=== PATIENT | male | born 1945 | race Caucasian/White ===

== ENCOUNTER 2020-03-28 06:16 | Outpatient (REF) | payer BC, SELFPAY ==
[2020-03-28 11:26] LABS: MANUAL DIFF FLAG NO
[2020-03-28 11:45] LABS: Basophils Absolute Auto 0.1 X10*3/uL (0.0-0.2); Basophils Percent Auto 0.8 % (0-2); Eosinophils Absolute Auto 0.1 X10*3/uL (0.0-0.4); Eosinophils Percent Auto 1.4 % (0-4); Hematocrit 45.2 % (42-52); Imm Gran Abs Auto 0.05 X10*3/uL (0.00-0.03); Imm Gran Pct Auto 0.5 % (0.0-0.4); Lymphocytes Absolute Auto 2.9 X10*3/uL (1.2-4.9); Lymphocytes Percent Auto 30.6 % (20-40); Mean Corpuscular HGB Conc 33.2 g/dl (31.0-36.0); Mean Corpuscular Hemoglobin 30.1 pg (27.0-33.0); Mean Corpuscular Volume 90.8 fL (80-98); Mean Platelet Volume 11.3 fL (9.4-12.4); Monocytes Absolute Auto 0.8 X10*3/uL (0.1-1.2); Monocytes Percent Auto 8.1 % (2-11); Neutrophils Absolute Auto 5.5 X10*3/uL (2.0-8.3); Neutrophils Percent Auto 58.6 % (45-73); Platelet Count 240 X10*3/uL (160-400); Red Blood Count 4.98 X10*6/uL (4.60-5.80); White Blood Count 9.4 X10*3/uL (4.8-10.8)
[2020-03-28 11:52] LABS: Glucose Urine UA NEG (NEG); Leukocyte Esterase Urine NEG (NEG); Nitrite Urine NEG (NEG); PH 5.5 (5.0-8.0); Specific Gravity - Urine >= 1.030 (1.005-1.025); Urine Blood NEG (NEG); Urine Ketones NEG (NEG); Urine Protein NEG (NEG-TRACE)
[2020-03-28 12:02] LABS: Appearance Urine CLOUDY; Color Urine YELLOW; UACC Culture Trigger NO
[2020-03-28 12:03] LABS: Alanine Aminotransferase 34 U/L (0-40); Albumin Level 4.6 g/dL (3.5-5.0); Alkaline Phosphatase 83 U/L (39-117); Anion Gap 16 (12-20); Aspartate Amino Transferase 27 U/L (5-37); Bilirubin Total 0.8 mg/dL (0.0-1.0); Blood Urea Nitrogen 15 mg/dL (9-16); Carbon Dioxide 20 mmol/L (22-29); Chloride 107 mmol/L (96-108); Cholesterol 128 mg/dL; Estimated Glomerular Filt Rate > 60; Glucose Fasting 110 mg/dL (60-99); HDL Cholesterol 38 mg/dL; LDL Cholesterol Calculated 60 mg/dl; Potassium 4.2 mmol/l (3.3-5.1); Sodium 139 mmol/L (135-145); Total Protein 7.2 g/dL (6.5-8.0); Triglycerides 151 mg/dL
[2020-03-28 12:10] LABS: TSH reflex Free T4 2.85 mIU/mL (0.32-4.0)
[2020-03-28 12:17] LABS: Amorphous Sediment Urine 3+ /LPF; Mucus Urine 3+ /LPF; RBC Urine 0 /HPF (0); WBC Urine 0 /HPF (0-4)
[2020-03-28 12:41] LABS: Estimated Average Glucose 120 mg/dL; Hemoglobin A1C 157.6414 umol/L; Hemoglobin A1c % 5.8 %
== END 2020-03-28 06:17 | disposition home or self-care (01) ==
LOC: HO.HMGCLDS 06:16
PROVIDERS: PCP Internal Medicine; Visit Provider Internal Medicine
DX: E78.00 Pure hypercholesterolemia, unspecified (principal); R73.01 Impaired fasting glucose; I10 Essential (primary) hypertension; K21.9 Gastro-esophageal reflux disease without esophagitis; N40.0 Benign prostatic hyperplasia without lower urinary tract symptoms; E66.3 Overweight
CPT/HCPCS: 36415; 80053; 80061; 81001; 81003; 83036; 84443; 85025

== ENCOUNTER 2020-07-23 | Outpatient (REF) | payer MEDICARE, SELFPAY | END 2020-07-23 00:01 | disposition home or self-care (01) | LOC: HO.VC | PROVIDERS: Visit Provider Internal Medicine | DX: Z23 Encounter for immunization (principal) | CPT/HCPCS: 0011A ==

== ENCOUNTER 2020-08-19 | Outpatient (REF) | payer BC, SELFPAY | END 2020-08-19 00:01 | disposition home or self-care (01) | LOC: HO.VC | PROVIDERS: Visit Provider Internal Medicine | DX: Z23 Encounter for immunization (principal) | CPT/HCPCS: 0012A ==

== ENCOUNTER 2020-09-01 10:20 | Outpatient (REF) | payer BC, SELFPAY ==
[2020-09-01 12:00] LABS: Prostate Specific Antigen 0.11 ng/mL (<0.05-4.0)
== END 2020-09-01 10:21 | disposition home or self-care (01) ==
LOC: HO.HMGCLDS 10:20
PROVIDERS: PCP Internal Medicine; Visit Provider Urology
DX: Z12.5 Encounter for screening for malignant neoplasm of prostate (principal); C61 Malignant neoplasm of prostate
CPT/HCPCS: 36415; 84153

== ENCOUNTER 2020-09-22 06:56 | Outpatient (REF) | payer BC, SELFPAY ==
[2020-09-22 11:34] LABS: MANUAL DIFF FLAG NO
[2020-09-22 11:49] LABS: Basophils Absolute Auto 0.1 X10*3/uL (0.0-0.2); Basophils Percent Auto 0.7 % (0-2); Eosinophils Absolute Auto 0.2 X10*3/uL (0.0-0.4); Eosinophils Percent Auto 1.4 % (0-4); Hematocrit 43.7 % (42-52); Hemoglobin 13.9 g/dl (14.0-18.0); Imm Gran Abs Auto 0.06 X10*3/uL (0.00-0.03); Imm Gran Pct Auto 0.5 % (0.0-0.4); Lymphocytes Absolute Auto 3.1 X10*3/uL (1.2-4.9); Lymphocytes Percent Auto 27.2 % (20-40); Mean Corpuscular HGB Conc 31.8 g/dl (31.0-36.0); Mean Corpuscular Hemoglobin 29.4 pg (27.0-33.0); Mean Corpuscular Volume 92.4 fL (80-98); Mean Platelet Volume 11.2 fL (9.4-12.4); Monocytes Percent Auto 9.1 % (2-11); Neutrophils Percent Auto 61.1 % (45-73); Platelet Count 221 X10*3/uL (160-400); Red Blood Count 4.73 X10*6/uL (4.60-5.80); Red Cell Distribution Width 13.3 % (11.0-16.0); White Blood Count 11.4 X10*3/uL (4.8-10.8)
[2020-09-22 11:50] LABS: Glucose Urine UA NEG (NEG); Leukocyte Esterase Urine NEG (NEG); Nitrite Urine NEG (NEG); PH 5.5 (5.0-8.0); Specific Gravity - Urine >= 1.030 (1.005-1.025); Urine Blood NEG (NEG); Urine Ketones NEG (NEG); Urine Protein NEG (NEG-TRACE)
[2020-09-22 11:57] LABS: Appearance Urine CLOUDY; Color Urine AMBER
[2020-09-22 12:04] LABS: Alanine Aminotransferase 38 U/L (0-40); Albumin Level 4.3 g/dL (3.5-5.0); Alkaline Phosphatase 72 U/L (39-117); Anion Gap 15 (12-20); Aspartate Amino Transferase 40 U/L (5-37); Bilirubin Total 0.8 mg/dL (0.0-1.0); Blood Urea Nitrogen 22 mg/dL (9-16); Calcium 8.9 mg/dL (8.4-10.2); Carbon Dioxide 19 mmol/L (22-29); Chloride 110 mmol/L (96-108); Cholesterol 133 mg/dL; Estimated Glomerular Filt Rate > 60; Glucose Fasting 102 mg/dL (60-99); HDL Cholesterol 40 mg/dL; LDL Cholesterol Calculated 62 mg/dl; Potassium 4.1 mmol/L (3.3-5.1); Sodium 140 mmol/L (135-145); Total Protein 6.7 g/dL (6.5-8.0); Triglycerides 159 mg/dL
[2020-09-22 12:13] LABS: TSH reflex Free T4 1.53 uIU/mL (0.32-4.0); Vitamin D 25-OH Total 31.6 ng/mL (>30)
== END 2020-09-22 06:57 | disposition home or self-care (01) ==
LOC: HO.HMGCLDS 06:56
PROVIDERS: PCP Internal Medicine; Visit Provider Internal Medicine
DX: E66.3 Overweight (principal); E78.00 Pure hypercholesterolemia, unspecified; I10 Essential (primary) hypertension; N40.1 Benign prostatic hyperplasia with lower urinary tract symptoms; R35.0 Frequency of micturition; K21.9 Gastro-esophageal reflux disease without esophagitis; R73.01 Impaired fasting glucose; E55.9 Vitamin D deficiency, unspecified
CPT/HCPCS: 36415; 80053; 80061; 81003; 82306; 84443; 85025

== ENCOUNTER → 2020-09-23 09:42 | Outpatient (BNVA) | payer BC, SELFPAY | PROVIDERS: PCP Internal Medicine; Visit Provider Urology ==

== ENCOUNTER 2021-03-23 06:19 | Outpatient (REF) | payer BC, SELFPAY ==
[2021-03-23 11:19] LABS: MANUAL DIFF FLAG NO
[2021-03-23 11:23] LABS: Appearance Urine CLEAR; Color Urine YELLOW; Glucose Urine UA NEG (NEG); Leukocyte Esterase Urine NEG (NEG); Nitrite Urine NEG (NEG); PH 6.5 (5.0-8.0); Urine Blood NEG (NEG); Urine Ketones NEG (NEG); Urine Protein NEG (NEG-TRACE)
[2021-03-23 11:24] LABS: Basophils Absolute Auto 0.1 X10*3/uL (0.0-0.2); Basophils Percent Auto 0.9 % (0-2); Eosinophils Absolute Auto 0.1 X10*3/uL (0.0-0.4); Eosinophils Percent Auto 0.9 % (0-4); Hematocrit 44.5 % (42-52); Hemoglobin 14.6 g/dl (14.0-18.0); Imm Gran Abs Auto 0.05 X10*3/uL (0.00-0.03); Imm Gran Pct Auto 0.5 % (0.0-0.4); Lymphocytes Absolute Auto 3.2 X10*3/uL (1.2-4.9); Lymphocytes Percent Auto 32.6 % (20-40); Mean Corpuscular HGB Conc 32.8 g/dl (31.0-36.0); Mean Corpuscular Hemoglobin 29.8 pg (27.0-33.0); Mean Corpuscular Volume 90.8 fL (80-98); Mean Platelet Volume 10.7 fL (9.4-12.4); Monocytes Absolute Auto 0.9 X10*3/uL (0.1-1.2); Monocytes Percent Auto 9.3 % (2-11); Neutrophils Absolute Auto 5.5 X10*3/uL (2.0-8.3); Neutrophils Percent Auto 55.8 % (45-73); Platelet Count 228 X10*3/uL (160-400); Red Cell Distribution Width 13.1 % (11.0-16.0); White Blood Count 9.8 X10*3/uL (4.8-10.8)
[2021-03-23 11:45] LABS: Alanine Aminotransferase 28 U/L (0-40); Albumin Level 4.5 g/dL (3.5-5.0); Alkaline Phosphatase 75 U/L (39-117); Anion Gap 14 (12-20); Aspartate Amino Transferase 23 U/L (5-37); Bilirubin Total 0.9 mg/dL (0.0-1.0); Blood Urea Nitrogen 10 mg/dL (9-16); Calcium 9.1 mg/dL (8.4-10.2); Carbon Dioxide 21 mmol/L (22-29); Chloride 109 mmol/L (96-108); Cholesterol 128 mg/dL; Estimated Glomerular Filt Rate > 60; Glucose Fasting 104 mg/dL (60-99); HDL Cholesterol 40 mg/dL; LDL Cholesterol Calculated 57 mg/dl; Potassium 4.2 mmol/L (3.3-5.1); Sodium 140 mmol/L (135-145); Total Protein 6.8 g/dL (6.5-8.0); Triglycerides 159 mg/dL
[2021-03-23 11:47] LABS: Estimated Average Glucose 117 mg/dL; Hemoglobin A1c % 5.7 %
[2021-03-23 12:08] LABS: TSH reflex Free T4 2.35 uIU/mL (0.32-4.0); Vitamin D 25-OH Total 39.3 ng/mL (>30)
== END 2021-03-23 06:20 | disposition home or self-care (01) ==
LOC: HO.HMGCLDS 06:19
PROVIDERS: PCP Internal Medicine; Visit Provider Internal Medicine
DX: R73.01 Impaired fasting glucose (principal); I10 Essential (primary) hypertension; N40.1 Benign prostatic hyperplasia with lower urinary tract symptoms; R35.0 Frequency of micturition; E55.9 Vitamin D deficiency, unspecified; E78.00 Pure hypercholesterolemia, unspecified; E66.3 Overweight
CPT/HCPCS: 36415; 80053; 80061; 81003; 82306; 83036; 84443; 85025

== ENCOUNTER 2021-09-16 07:26 | Outpatient (REF) | payer BC, SELFPAY ==
[2021-09-16 12:30] LABS: Prostate Specific Antigen 0.14 ng/mL (<0.05-4.0)
== END 2021-09-16 07:27 | disposition home or self-care (01) ==
LOC: HO.HMGCLDS 07:26
PROVIDERS: PCP Internal Medicine; Visit Provider Urology
DX: Z12.5 Encounter for screening for malignant neoplasm of prostate (principal); C61 Malignant neoplasm of prostate; N40.1 Benign prostatic hyperplasia with lower urinary tract symptoms; N13.8 Other obstructive and reflux uropathy
CPT/HCPCS: 36415; 84153

== ENCOUNTER 2021-09-21 06:28 | Outpatient (REF) | payer BC, SELFPAY ==
[2021-09-21 12:04] LABS: MANUAL DIFF FLAG NO
[2021-09-21 12:13] LABS: Appearance Urine CLEAR; Color Urine YELLOW; Glucose Urine UA NEG (NEG); Leukocyte Esterase Urine NEG (NEG); Nitrite Urine NEG (NEG); PH 5.5 (5.0-8.0); Specific Gravity - Urine 1.025 (1.005-1.025); Urine Blood NEG (NEG); Urine Ketones NEG (NEG); Urine Protein NEG (NEG-TRACE)
[2021-09-21 12:14] LABS: Basophils Absolute Auto 0.1 X10*3/uL (0.0-0.2); Basophils Percent Auto 0.7 % (0-2); Eosinophils Absolute Auto 0.2 X10*3/uL (0.0-0.4); Eosinophils Percent Auto 1.9 % (0-4); Hematocrit 46.9 % (42.0-52.0); Hemoglobin 14.9 g/dl (14.0-18.0); Imm Gran Abs Auto 0.06 X10*3/uL (0.00-0.03); Imm Gran Pct Auto 0.6 % (0.0-0.4); Lymphocytes Absolute Auto 3.8 X10*3/uL (1.2-4.9); Lymphocytes Percent Auto 35.7 % (20-40); Mean Corpuscular HGB Conc 31.8 g/dl (31.0-36.0); Mean Corpuscular Hemoglobin 29.3 pg (27.0-33.0); Mean Corpuscular Volume 92.3 fL (80.0-98.0); Mean Platelet Volume 11.2 fL (9.4-12.4); Monocytes Absolute Auto 0.9 X10*3/uL (0.1-1.2); Monocytes Percent Auto 8.9 % (2-11); Neutrophils Absolute Auto 5.5 x10*3/uL (2.0-8.3); Neutrophils Percent Auto 52.2 % (45-73); Platelet Count 235 X10*3/uL (160-400); Red Blood Count 5.08 X10*6/uL (4.60-5.80); Red Cell Distribution Width 13.3 % (11.0-16.0); White Blood Count 10.5 X10*3/uL (4.8-10.8)
[2021-09-21 12:34] LABS: Alanine Aminotransferase 32 U/L (0-40); Albumin Level 4.5 g/dL (3.5-5.0); Alkaline Phosphatase 77 U/L (39-117); Anion Gap 11 (12-20); Aspartate Amino Transferase 19 U/L (5-37); Bilirubin Total 0.8 mg/dL (0.0-1.0); Blood Urea Nitrogen 18 mg/dL (9-16); Calcium 9.8 mg/dL (8.4-10.2); Carbon Dioxide 25 mmol/L (22-29); Chloride 108 mmol/L (96-108); Cholesterol 149 mg/dL; Estimated Glomerular Filt Rate > 60; Glucose Fasting 114 mg/dL (60-99); HDL Cholesterol 40 mg/dL; LDL Cholesterol Calculated 64 mg/dl; Potassium 4.3 mmol/L (3.3-5.1); Sodium 140 mmol/L (135-145); Total Protein 7.1 g/dL (6.5-8.0); Triglycerides 225 mg/dL
[2021-09-21 12:40] LABS: Vitamin D 25-OH Total 37.2 ng/mL (>30)
[2021-09-21 12:59] LABS: Estimated Average Glucose 117 mg/dL; Hemoglobin A1c % 5.7 %
== END 2021-09-21 06:29 | disposition home or self-care (01) ==
LOC: HO.HMGCLDS 06:28
PROVIDERS: Visit Provider Internal Medicine
DX: I10 Essential (primary) hypertension (principal); E78.00 Pure hypercholesterolemia, unspecified; R73.01 Impaired fasting glucose; E55.9 Vitamin D deficiency, unspecified
CPT/HCPCS: 36415; 80053; 80061; 81003; 82306; 83036; 84443; 85025

== ENCOUNTER → 2021-09-24 09:10 | Outpatient (BNVA) | payer BC, SELFPAY | PROVIDERS: PCP Internal Medicine; Visit Provider Urology | DX: C61 Malignant neoplasm of prostate (principal) | CPT/HCPCS: 51798 ==

== ENCOUNTER 2021-11-13 14:06 | Emergency (ER) | payer BC, SELFPAY ==
--- NOTE | ~2021-11-13 | XR_ITS ---
EXAMINATION: XR CHEST CLINICAL INFORMATION: Palpitations COMPARISON: None TECHNIQUE: Frontal view of the chest was obtained. FINDINGS: The lungs are well expanded. Minimal opacity at the left base noted. There is no edema or effusion. No pneumothorax. The cardiomediastinal silhouette is within normal limits. No acute osseous abnormality. XR/XR chest 1V IMPRESSION: Minimal left basilar opacity could be atelectasis or pneumonia.
--- NOTE | ~2021-11-13 | CT_ITS ---
EXAMINATION: CT HEAD WITHOUT CONTRAST CLINICAL INFORMATION: Right arm numbness COMPARISON: Previous head CT December 2010 TECHNIQUE: Contiguous axial imaging was performed from the skull base to vertex without intravenous administration of contrast. This CT examination was performed using dose optimization techniques as appropriate, variously including the following: *Automated exposure control *Adjustment of mA and/or kV according to patient size (this includes techniques or standardized protocols for targeted exams where dose is matched to indication/reason for exam; i.e. extremities or head) *Use of iterative reconstruction technique DLP: 671 mGy-cm FINDINGS: There is no evidence of an extra-axial collection. There is no evidence of intra-axial or extra-axial hemorrhage. The ventricles and extra-axial CSF spaces are prominent suggestive of mild generalized atrophy. Shah-white matter differentiation is normal. No mass, mass effect or infarct is seen. No skull fracture is seen. There are mild degenerative changes of the left temporomandibular joint. There is soft tissue opacification the left mastoid air cells. This is unchanged from previous exam. Visualized paranasal sinuses, mastoid air cells and middle ears are otherwise clear. CT/CT head/brain wo con IMPRESSION: No acute findings.
--- NOTE | 2021-11-13 14:38 | ECG_ITS ---
Test Reason : SVT Blood Pressure : / mmHG Vent. Rate : 095 BPM Atrial Rate : 095 BPM P-R Int : 184 ms QRS Dur : 096 ms QT Int : 350 ms P-R-T Axes : 065 -12 042 degrees QTc Int : 439 ms Normal sinus rhythm Normal ECG When compared with ECG of 17-DEC-2010 18:28, No significant change was found Referred By: Generic ED Physician Electronically Signed By:Abdulkadir Daniels
[2021-11-13 15:15] VITALS: BP 111/96; PULSE 160; RESP 16; O2SAT 97; BMI 26.9
--- NOTE | 2021-11-13 15:19 | PC.NURSE ---
dosier operator made aware of HR and recommendation to have pt moved to main ED
--- NOTE | 2021-11-13 15:27 | ED.ARRPALP ---
HPI - Arrhythmia/Palpitations General Chief Complaint: Arrhythmia/Palpitations Stated Complaint: heart palipations/sinus infection/dizziness Time Seen by Provider: 11/13/21 15:27 Source: patient Mode of arrival: ambulatory Limitations: no limitations History of Present Illness HPI narrative: 76 y/o male with history of HTN, HLD, GERD, prostate cancer who comes into the ED for evaluation from home c/o 1-2 weeks of intermittent palpitations and dizziness. He cannot recall exactly when they started but thinks it may have been after he mowed the lawn. He reports he has intermittent heart racing the last anywhere from seconds to minutes. He cannot recall if it starts during exertion or rest. He denies any chest pain. He reports his breath is short but he is not working to breathe or having difficulty breathing. He thinks he has a sinus infection. He also reports some right arm numbness that is intermittent and occurs with the palpitations. He thinks he may have carpal tunnel syndrome. He denies any weakness, speech difficulties, confusion or lethargy. MD complaint: rapid heart beat Onset (ago): week(s) Duration: intermittent Severity: moderate Context: occurred during rest and occurred during exertion Associated symptoms: shortness of breath Related Data Home Medications Medication Instructions Recorded Confirmed multivitamin (Multiple Vitamins) 1 tab PO DAILY 04/04/20 09/29/21 omega 8-tfd-itt-fish oil 100 1 cap PO .once a day cap 04/04/20 09/29/21 mg-160 mg-1,000 mg capsule (Fish Oil) cholecalciferol (vitamin D3) 25 25 mcg PO DAILY 09/29/21 09/29/21 mcg (1,000 unit) capsule Previous Rx's Medication Instructions Recorded metoprolol succinate 100 mg 100 mg PO DAILY #90 tab 02/16/21 tablet,extended release 24 hr atorvastatin 40 mg tablet 40 mg PO DAILY #90 tab 08/11/21 omeprazole 40 mg capsule,delayed 40 mg PO DAILY 90 Days #90 cap 08/11/21 release lisinopril 10 mg tablet 10 mg PO DAILY #90 tab 09/10/21 tamsulosin 0.4 mg capsule 0.4 mg PO DAILY #90 cap 09/10/21 amoxicillin-potassium clavulanate 1 tab PO BID 7 Days #14 tab 11/13/21 1,000 mg-62.5 mg tablet,ext.rel 12hr (Augmentin XR) Allergies Allergy/AdvReac Type Severity Reaction Status Date / Time No Known Allergies Allergy Verified 11/13/21 15:15 Review of Systems Review of Systems: Constitutional: No Fever, No Chills ENT/Mouth: No sore throat, No Rhinorrhea, No Swallowing Difficulty, +Sinus pressure Cardiovascular: No Chest Pain, + SOB, No Orthopnea, No Edema, +Palpitations Respiratory: No Cough, No Sputum, No Wheezing, No dyspnea Gastrointestinal: No Nausea, No Vomiting, No Diarrhea, No abdominal Pain, No Hematochezia, No Melena Genitourinary: No Dysuria, No Urinary Frequency, No Hematuria Musculoskeletal: No joint pain, No Myalgias Skin: No Skin Lesions, No rash Neuro: No Weakness, + Numbness, + Dizziness, No Headache Psych: + Anxiety/Panic, No Depression Heme/Lymph: No Bruising, No Lymphadenopathy Endocrine: No Polyuria, No Polydipsia PMFSH Past Medical History Medical History Benign essential hypertension Benign prostatic hyperplasia with urinary frequency GERD (gastroesophageal reflux disease) History of prostate cancer Impaired fasting glucose Overweight (BMI 25.0-29.9) Pure hypercholesterolemia Vitamin D deficiency Surgical History No pertinent past surgical history Family History Family History Father Medical history unknown Mother CVD (cardiovascular disease) Social History Social History Housing: House Alcohol intake: never Patient Tobacco Use Status: Former Tobacco user e-Cigarette/Vaping Use: Never Used Second Hand Smoke Exposure: Yes Advance Directives: No Advance Directives Information Provided: No service: Yes Current occupational status: retired Cognitive needs: No Hearing needs: No Vision needs: No Physical Exam Vital Signs: Vital Signs: Last Vital Signs Pulse 87 11/13/21 16:07 Resp 18 11/13/21 16:07 BP 143/85 H 11/13/21 16:07 Pulse Ox 98 11/13/21 16:07 BMI result Body Mass Index 26.9 Appearance: Alert. Oriented X3. No acute distress. Eyes: Pupils equal, round and reactive to light. ENT: Pharynx normal. Neck: Normal inspection. Neck supple. CVS: Tachycardic, regular rhythm, HR 160. Pulses normal. Respiratory: No respiratory distress. Breath sounds normal. Abdomen: Soft and nontender. +BS x4 Skin: Skin warm and dry. Normal skin color. Normal skin turgor. No rashes. Extremities: No lower extremity edema. No calf tenderness Neuro: Oriented X 3. No motor deficit. No sensory deficit. Course Course Course Narrative: 76-year-old male with history of hypertension, hyperlipidemia, remote history of prostate cancer who presents to the ER for evaluation of intermittent palpitations and dizziness for the last 1-2 weeks. He is a poor historian. On arrival to the ER he is in so supraventricular tachycardia with heart rates 160. His blood pressure is 170/110. He is in no distress and has minimal symptoms at this time. Instructed to perform Valsalva maneuver and this broke his SVT. Will check troponin, lab workup, monitor on telemetry closely. Reevaluation(s) Reevaluation #1: Lab workup was unremarkable. He has maintained sinus rhythm. He would like to be treated for sinus infection with reports of left-sided sinus pressure, green nasal discharge and postnasal drip. He has no shortness of breath or chest pain. Chest x-ray shows possible early infiltrate in the left upper lobe. Will treat with Augmentin. Will refer to Cardiology, case discussed with Dr. Oleary who agrees with continuation of metoprolol and f/u in the office. Patient counseled on dx and management. MDM - Arrhythmia/Palpitations Medical Records Attestation: I reviewed the patient's medical records. Lab Data Attestation: I reviewed the patient's lab results. Result diagrams: 11/13/21 15:44 11/13/21 15:44 Labs: Lab Results 11/13/21 11/13/21 11/13/21 Range/Units 15:44 15:44 15:44 WBC 10.8 (4.8-10.8) X10*3/uL RBC 4.93 (4.60-5.80) X10*6/uL Hgb 14.8 (14.0-18.0) g/dl Hct 44.4 (42.0-52.0) % MCV 90.1 (80.0-98.0) fL MCH 30.0 (27.0-33.0) pg MCHC 33.3 (31.0-36.0) g/dl RDW 13.2 (11.0-16.0) % Plt Count 219 (160-400) X10*3/uL MPV 10.6 (9.4-12.4) fL Immature Gran % (Auto) 0.5 H (0.0-0.4) % Neut % (Auto) 68.8 (45-73) % Lymph % (Auto) 21.0 (20-40) % [place] % (Auto) 8.7 (2-11) % Eos % (Auto) 0.5 (0-4) % Baso % (Auto) 0.5 (0-2) % Lymph # (Auto) 2.3 (1.2-4.9) X10*3/uL [place] # (Auto) 0.9 (0.1-1.2) X10*3/uL Eos # (Auto) 0.1 (0.0-0.4) X10*3/uL Baso # (Auto) 0.1 (0.0-0.2) X10*3/uL Abs Immat Gran (auto) 0.05 H (0.00-0.03) X10*3/uL Absolute Neuts (auto) 7.4 (2.0-8.3) x10*3/uL Absolute Nucleated RBC 0.000 (0.0-0.012) X10*3/uL Nucleated RBC % (auto) 0.0 (0.0-0.2) /100WBC PT (9.9-13.0) SEC INR (0.9-1.1) APTT (24.1-38.0) SEC Sodium 140 (135-145) mmol/L Potassium 4.9 (3.3-5.1) mmol/L Chloride 108 (96-108) mmol/L Carbon Dioxide 21 L (22-29) mmol/L Anion Gap 16 (12-20) BUN 12 (9-16) mg/dL Creatinine 1.07 (0.5-1.4) mg/dL Estim Creat Clear Calc 61.5 Estimated GFR > 60 Random Glucose 117 H (60-115) mg/dL Calcium 9.9 (8.4-10.2) mg/dL Magnesium 2.3 (1.6-2.6) mg/dL Total Bilirubin 0.8 (0.0-1.0) mg/dL Direct Bilirubin 0.3 (0.0-0.5) mg/dL AST 27 D (5-37) U/L ALT 28 (0-40) U/L Alkaline Phosphatase 69 (39-117) U/L Troponin I High Sens 6.4 (<3.5-35.0) ng/L B-Natriuretic Peptide 212 H (<100) pg/mL Total Protein 7.2 (6.5-8.0) g/dL Albumin 4.3 (3.5-5.0) g/dL Urine Color Urine Appearance Urine pH (5.0-8.0) Ur Specific [place] (1.005-1.025) Urine Protein (NEG-TRACE) MG/DL Urine Glucose (UA) (NEG) MG/DL Urine Ketones (NEG) MG/DL Urine Blood (NEG) Urine Nitrite (NEG) Ur Leukocyte Esterase (NEG) Urine Opiates Screen (Not Detect) Urine Fentanyl Screen (Not Detect) Ur Barbiturates Screen (Not Detect) Ur Phencyclidine Scrn (Not Detect) Ur Amphetamines Screen (Not Detect) U Benzodiazepines Scrn (Not Detect) Urine Cocaine Screen (Not Detect) U Marijuana (THC) Screen (Not Detect) Ethyl Alcohol mg/dL COVID-19 (VIDAL) (Negative) COVID-19 Clin Com 11/13/21 11/13/21 11/13/21 Range/Units 15:44 16:02 16:02 WBC (4.8-10.8) X10*3/uL RBC (4.60-5.80) X10*6/uL Hgb (14.0-18.0) g/dl Hct (42.0-52.0) % MCV (80.0-98.0) fL MCH (27.0-33.0) pg MCHC (31.0-36.0) g/dl RDW (11.0-16.0) % Plt Count (160-400) X10*3/uL MPV (9.4-12.4) fL Immature Gran % (Auto) (0.0-0.4) % Neut % (Auto) (45-73) % Lymph % (Auto) (20-40) % [place]anan % (Auto) (2-11) % Eos % (Auto) (0-4) % Baso % (Auto) (0-2) % Lymph # (Auto) (1.2-4.9) X10*3/uL [place] # (Auto) (0.1-1.2) X10*3/uL Eos # (Auto) (0.0-0.4) X10*3/uL Baso # (Auto) (0.0-0.2) X10*3/uL Abs Immat Gran (auto) (0.00-0.03) X10*3/uL Absolute Neuts (auto) (2.0-8.3) x10*3/uL Absolute Nucleated RBC (0.0-0.012) X10*3/uL Nucleated RBC % (auto) (0.0-0.2) /100WBC PT 11.3 (9.9-13.0) SEC INR 1.0 (0.9-1.1) APTT 35.6 (24.1-38.0) SEC Sodium (135-145) mmol/L Potassium (3.3-5.1) mmol/L Chloride (96-108) mmol/L Carbon Dioxide (22-29) mmol/L Anion Gap (12-20) BUN (9-16) mg/dL Creatinine (0.5-1.4) mg/dL Estim Creat Clear Calc Estimated GFR Random Glucose (60-115) mg/dL Calcium (8.4-10.2) mg/dL Magnesium (1.6-2.6) mg/dL Total Bilirubin (0.0-1.0) mg/dL Direct Bilirubin (0.0-0.5) mg/dL AST (5-37) U/L ALT (0-40) U/L Alkaline Phosphatase (39-117) U/L Troponin I High Sens (<3.5-35.0) ng/L B-Natriuretic Peptide (<100) pg/mL Total Protein (6.5-8.0) g/dL Albumin (3.5-5.0) g/dL Urine Color Urine Appearance Urine pH (5.0-8.0) Ur Specific [place] (1.005-1.025) Urine Protein (NEG-TRACE) MG/DL Urine Glucose (UA) (NEG) MG/DL Urine Ketones (NEG) MG/DL Urine Blood (NEG) Urine Nitrite (NEG) Ur Leukocyte Esterase (NEG) Urine Opiates Screen (Not Detect) Urine Fentanyl Screen (Not Detect) Ur Barbiturates Screen (Not Detect) Ur Phencyclidine Scrn (Not Detect) Ur Amphetamines Screen (Not Detect) U Benzodiazepines Scrn (Not Detect) Urine Cocaine Screen (Not Detect) U Marijuana (THC) Screen (Not Detect) Ethyl Alcohol < 10 mg/dL COVID-19 (VIDAL) Negative (Negative) COVID-19 Clin Com See Note 11/13/21 11/13/21 Range/Units 16:09 16:09 WBC (4.8-10.8) X10*3/uL RBC (4.60-5.80) X10*6/uL Hgb (14.0-18.0) g/dl Hct (42.0-52.0) % MCV (80.0-98.0) fL MCH (27.0-33.0) pg MCHC (31.0-36.0) g/dl RDW (11.0-16.0) % Plt Count (160-400) X10*3/uL MPV (9.4-12.4) fL Immature Gran % (Auto) (0.0-0.4) % Neut % (Auto) (45-73) % Lymph % (Auto) (20-40) % [place] % (Auto) (2-11) % Eos % (Auto) (0-4) % Baso % (Auto) (0-2) % Lymph # (Auto) (1.2-4.9) X10*3/uL [place] # (Auto) (0.1-1.2) X10*3/uL Eos # (Auto) (0.0-0.4) X10*3/uL Baso # (Auto) (0.0-0.2) X10*3/uL Abs Immat Gran (auto) (0.00-0.03) X10*3/uL Absolute Neuts (auto) (2.0-8.3) x10*3/uL Absolute Nucleated RBC (0.0-0.012) X10*3/uL Nucleated RBC % (auto) (0.0-0.2) /100WBC PT (9.9-13.0) SEC INR (0.9-1.1) APTT (24.1-38.0) SEC Sodium (135-145) mmol/L Potassium (3.3-5.1) mmol/L Chloride (96-108) mmol/L Carbon Dioxide (22-29) mmol/L Anion Gap (12-20) BUN (9-16) mg/dL Creatinine (0.5-1.4) mg/dL Estim Creat Clear Calc Estimated GFR Random Glucose (60-115) mg/dL Calcium (8.4-10.2) mg/dL Magnesium (1.6-2.6) mg/dL Total Bilirubin (0.0-1.0) mg/dL Direct Bilirubin (0.0-0.5) mg/dL AST (5-37) U/L ALT (0-40) U/L Alkaline Phosphatase (39-117) U/L Troponin I High Sens (<3.5-35.0) ng/L B-Natriuretic Peptide (<100) pg/mL Total Protein (6.5-8.0) g/dL Albumin (3.5-5.0) g/dL Urine Color YELLOW Urine Appearance CLEAR Urine pH 5.5 (5.0-8.0) Ur Specific [place] 1.025 (1.005-1.025) Urine Protein NEG (NEG-TRACE) MG/DL Urine Glucose (UA) NEG (NEG) MG/DL Urine Ketones NEG (NEG) MG/DL Urine Blood NEG (NEG) Urine Nitrite NEG (NEG) Ur Leukocyte Esterase NEG (NEG) Urine Opiates Screen Not Detected (Not Detect) Urine Fentanyl Screen Not Detected (Not Detect) Ur Barbiturates Screen Not Detected (Not Detect) Ur Phencyclidine Scrn Not Detected (Not Detect) Ur Amphetamines Screen Not Detected (Not Detect) U Benzodiazepines Scrn Not Detected (Not Detect) Urine Cocaine Screen Not Detected (Not Detect) U Marijuana (THC) Screen Not Detected (Not Detect) Ethyl Alcohol mg/dL COVID-19 (VIDAL) (Negative) COVID-19 Clin Com ECG Data Attestation: I personally reviewed and interpreted this ECG as follows: ECG interpretation date: 11/13/21 ECG interpretation time: 17:29 Prior ECG tracings: available for review Interpretation: normal sinus rhythm, HR 95 bpm, normal QTc, normal MO interval, No ST segment elevations or depressions Critical Care Time Critical Care Time Critical Care Time: Yes Total Critical Care Time: 35 Attestation: I have personally provided critical care time exclusive of time spent on separately billable procedures. Time includes review of lab data, radiology results, discussion with consultants, and monitoring for potential decompensation. Intervention performed as documented. Discharge Plan Discharge Clinical Impression: Paroxysmal supraventricular tachycardia Patient Disposition: Home, Self-Care Instructions: Supraventricular Tachycardia (ED), Valsalva Maneuver (ED) Additional Instructions: If you have recurrent palpitations, try the maneuver you did today in the ER - push like your are having a bowel movement Follow up with the Supervisor Histology for further evaluation - name and number below If you develop new or worsening symptoms call 911 or come back to the ER for further evaluation. Take the prescribed antibiotic for sinus infection and possible early left sided pneumonia. Take the entire course. Prescriptions: New amoxicillin-pot clavulanate [Augmentin XR] 1,000-62.5 mg tablet extended release 12 hr 1 tab PO BID 7 Days Qty: 14 0RF No Action metoprolol succinate 100 mg tablet extended release 24 hr 100 mg PO DAILY Qty: 90 3RF omeprazole 40 mg capsule,delayed release(DR/EC) 40 mg PO DAILY 90 Days Qty: 90 1RF atorvastatin 40 mg tablet 40 mg PO DAILY Qty: 90 3RF tamsulosin 0.4 mg capsule 0.4 mg PO DAILY Qty: 90 1RF lisinopril 10 mg tablet 10 mg PO DAILY Qty: 90 1RF Fish Oil 100-160-1,000 mg capsule 1 cap PO .once a day 0RF multivitamin [Multiple Vitamins] Tablet 1 tab PO DAILY 0RF cholecalciferol (vitamin D3) 25 mcg (1,000 unit) capsule 25 mcg PO DAILY 0RF Referrals: Abdulkadir Daniels MD [Physician] - (SVT) Discharge Date/Time: 11/13/21 17:31
[2021-11-13 15:43] VITALS: BP 178/111; PULSE 91; RESP 18; O2SAT 98
[2021-11-13 15:51] LABS: MANUAL DIFF FLAG NO
[2021-11-13 15:52] LABS: Basophils Absolute Auto 0.1 X10*3/uL (0.0-0.2); Basophils Percent Auto 0.5 % (0-2); Eosinophils Absolute Auto 0.1 X10*3/uL (0.0-0.4); Eosinophils Percent Auto 0.5 % (0-4); Hematocrit 44.4 % (42.0-52.0); Hemoglobin 14.8 g/dl (14.0-18.0); Imm Gran Abs Auto 0.05 X10*3/uL (0.00-0.03); Imm Gran Pct Auto 0.5 % (0.0-0.4); Lymphocytes Absolute Auto 2.3 X10*3/uL (1.2-4.9); Mean Corpuscular HGB Conc 33.3 g/dl (31.0-36.0); Mean Corpuscular Volume 90.1 fL (80.0-98.0); Mean Platelet Volume 10.6 fL (9.4-12.4); Monocytes Absolute Auto 0.9 X10*3/uL (0.1-1.2); Monocytes Percent Auto 8.7 % (2-11); Neutrophils Absolute Auto 7.4 x10*3/uL (2.0-8.3); Neutrophils Percent Auto 68.8 % (45-73); Platelet Count 219 X10*3/uL (160-400); Red Blood Count 4.93 X10*6/uL (4.60-5.80); Red Cell Distribution Width 13.2 % (11.0-16.0); White Blood Count 10.8 X10*3/uL (4.8-10.8)
[2021-11-13 15:59] VITALS: BP 149/83; PULSE 89; RESP 14; O2SAT 98
[2021-11-13 16:07] VITALS: BP 143/85; PULSE 87; RESP 18; O2SAT 98
[2021-11-13 16:11] LABS: COVID-19 Test Negative (Negative); IDNOW Serial# 16C4AD1C
[2021-11-13 16:13] LABS: Prothrombin Time 11.3 SEC (9.9-13.0)
[2021-11-13 16:15] LABS: Alanine Aminotransferase 28 U/L (0-40); Albumin Level 4.3 g/dL (3.5-5.0); Alkaline Phosphatase 69 U/L (39-117); Anion Gap 16 (12-20); Aspartate Amino Transferase 27 U/L (5-37); Bilirubin Direct 0.3 mg/dL (0.0-0.5); Bilirubin Total 0.8 mg/dL (0.0-1.0); Blood Urea Nitrogen 12 mg/dL (9-16); Calcium 9.9 mg/dL (8.4-10.2); Carbon Dioxide 21 mmol/L (22-29); Chloride 108 mmol/L (96-108); Creatinine Clr Calc Pharmacy 61.5; Estimated Glomerular Filt Rate > 60; Glucose Random 117 mg/dL (60-115); Magnesium 2.3 mg/dL (1.6-2.6); Potassium 4.9 mmol/L (3.3-5.1); Sodium 140 mmol/L (135-145); Total Protein 7.2 g/dL (6.5-8.0)
[2021-11-13 16:16] LABS: Partial Thromboplastin Time 35.6 SEC (24.1-38.0)
[2021-11-13 16:16] LABS: B Type Natriuretic Peptide 212 pg/mL (<100); Troponin-I High Sensitivity 6.4 ng/L (<3.5-35.0)
[2021-11-13 16:23] LABS: Ethanol < 10 mg/dL
[2021-11-13 16:28] LABS: Appearance Urine CLEAR; Color Urine YELLOW; Glucose Urine UA NEG (NEG); Leukocyte Esterase Urine NEG (NEG); Nitrite Urine NEG (NEG); PH 5.5 (5.0-8.0); Specific Gravity - Urine 1.025 (1.005-1.025); Urine Blood NEG (NEG); Urine Ketones NEG (NEG); Urine Protein NEG (NEG-TRACE)
[2021-11-13 16:49] LABS: Amphetamine Screen Urine Not Detected (Not Detect); Barbiturates, Urine Not Detected (Not Detect); Benzodiazepines Screen Urine Not Detected (Not Detect); Cannabinoid Screen Urine Not Detected (Not Detect); Cocaine Screen Urine Not Detected (Not Detect); Fentanyl, urine Not Detected (Not Detect); Opiate Screen Urine Not Detected (Not Detect); Phencyclidine Screen Urine Not Detected (Not Detect)
[2021-11-13 17:24] VITALS: BP 136/84; PULSE 87; RESP 16; TEMP 36.8; O2SAT 97
== END 2021-11-13 17:31 | disposition home or self-care (01) ==
PROVIDERS: Physician Assistant; Emergency Provider Emergency Medicine; PCP Internal Medicine
DX: I47.1 Supraventricular tachycardia (principal); R00.2 Palpitations; Z20.822 Contact with and (suspected) exposure to COVID-19; I10 Essential (primary) hypertension; E78.5 Hyperlipidemia, unspecified; R06.02 Shortness of breath; Z79.02 Long term (current) use of antithrombotics/antiplatelets; Z79.899 Other long term (current) drug therapy
CPT/HCPCS: 36415; 70450; 71045; 80048; 80076; 80307; 81003; 82077; 83735; 83880; 84484; 85025; 85610; 85730; 87635; 93005; 99284

== ENCOUNTER 2022-01-11 08:43 | Emergency (ER) | payer BC, SELFPAY ==
--- NOTE | ~2022-01-11 | CT_ITS ---
EXAMINATION: CT ABDOMEN AND PELVIS WITH CONTRAST CLINICAL INFORMATION: Black stool with right flank and right lower quadrant abdominal pain COMPARISON: None TECHNIQUE: Multidetector volumetric images were obtained from the superior aspect of the liver through the pubic symphysis following administration 85 mL of Omnipaque 350 intravenous contrast. Sagittal and coronal reformatted images were obtained on the technologist's workstation. Oral contrast: No This CT examination was performed using dose optimization techniques as appropriate, variously including the following: *Automated exposure control *Adjustment of mA and/or kV according to patient size (this includes techniques or standardized protocols for targeted exams where dose is matched to indication/reason for exam; i.e. extremities or head) *Use of iterative reconstruction technique DLP: 487 mGy-cm FINDINGS: LUNG BASES: Minimal bibasilar atelectasis. LIVER, GALLBLADDER, AND BILIARY TREE: The liver is normal in size, shape, and attenuation. No focal hepatic lesion or biliary ductal dilatation is present. The gallbladder is unremarkable with no evidence of radiopaque gallstones, gallbladder wall thickening, or obvious pericholecystic inflammatory changes. PANCREAS: Unremarkable. SPLEEN: Unremarkable. ADRENAL GLANDS: Unremarkable. KIDNEYS AND URETERS: Symmetric nephrograms. Subcentimeter hypodense probable cyst in the lower pole the left kidney, too small to accurately characterize. No other renal lesions. No radiodense renal calculi. No hydronephrosis. BLADDER: Slightly thick-walled appearance favored due to limited distention. GASTROINTESTINAL TRACT: Descending and sigmoid colonic diverticulosis. No findings of acute diverticulitis. No dilated bowel loops. No bowel wall thickening. Small hiatal hernia suspected. Appendix is within normal limits. No surrounding inflammatory change. No ascites or free air. ABDOMINAL WALL: No significant hernia is appreciated. LYMPH NODES: No lymphadenopathy. VASCULAR: Moderate vascular calcifications. Normal caliber abdominal aorta. PELVIC VISCERA: Prostate gland is normal in size. Prostate brachytherapy implant markers project in the prostate and one of which projects in the margin of the rectum. OSSEOUS STRUCTURES: No acute fracture or suspicious osseous lesion. Bilateral hip joint osteoarthritis, mild levoconvex curvature lumbar spine with multilevel disc degenerative changes, and lower lumbar facet arthrosis noted. CT/CT abdomen pelvis w con IMPRESSION: Colonic diverticulosis. No evidence of acute diverticulitis or other acute intra-abdominal process.
[2022-01-11 09:02] VITALS: BP 178/81; PULSE 82; RESP 20; TEMP 37.1; O2SAT 97; BMI 26.3
[2022-01-11 10:32] LABS: Basophils Absolute Auto 0.1 X10*3/uL (0.0-0.2); Basophils Percent Auto 0.7 % (0-2); Eosinophils Percent Auto 0.2 % (0-4); Hematocrit 44.8 % (42.0-52.0); Imm Gran Abs Auto 0.04 X10*3/uL (0.00-0.03); Imm Gran Pct Auto 0.5 % (0.0-0.4); Lymphocytes Absolute Auto 1.8 X10*3/uL (1.2-4.9); MANUAL DIFF FLAG NO; Mean Corpuscular HGB Conc 33.5 g/dl (31.0-36.0); Mean Corpuscular Hemoglobin 29.8 pg (27.0-33.0); Mean Corpuscular Volume 89.1 fL (80.0-98.0); Mean Platelet Volume 10.6 fL (9.4-12.4); Monocytes Absolute Auto 0.7 X10*3/uL (0.1-1.2); Monocytes Percent Auto 8.7 % (2-11); Neutrophils Absolute Auto 5.9 x10*3/uL (2.0-8.3); Neutrophils Percent Auto 68.9 % (45-73); Platelet Count 219 X10*3/uL (160-400); Red Blood Count 5.03 X10*6/uL (4.60-5.80); Red Cell Distribution Width 12.8 % (11.0-16.0); White Blood Count 8.5 X10*3/uL (4.8-10.8)
[2022-01-11 10:34] LABS: Appearance Urine CLEAR; Color Urine YELLOW; Glucose Urine UA NEG (NEG); Leukocyte Esterase Urine NEG (NEG); Nitrite Urine NEG (NEG); PH 6.5 (5.0-8.0); Specific Gravity - Urine 1.015 (1.005-1.025); Urine Blood NEG (NEG); Urine Ketones NEG (NEG); Urine Protein NEG (NEG-TRACE)
[2022-01-11 10:55] LABS: Alanine Aminotransferase 27 U/L (0-40); Albumin Level 4.6 g/dL (3.5-5.0); Alkaline Phosphatase 78 U/L (39-117); Anion Gap 13 (12-20); Aspartate Amino Transferase 21 U/L (5-37); Bilirubin Direct 0.4 mg/dL (0.0-0.5); Bilirubin Total 0.8 mg/dL (0.0-1.0); Blood Urea Nitrogen 11 mg/dL (9-16); Calcium 9.3 mg/dL (8.4-10.2); Carbon Dioxide 22 mmol/L (22-29); Chloride 105 mmol/L (96-108); Creatinine Clr Calc Pharmacy 75.7; Estimated Glomerular Filt Rate > 60; Glucose Random 103 mg/dL (60-115); Lipase 18 U/L (8-78); Potassium 4.4 mmol/L (3.3-5.1); Sodium 136 mmol/L (135-145); Total Protein 7.1 g/dL (6.5-8.0)
[2022-01-11 12:28] VITALS: BP 174/91; PULSE 77; TEMP 37; O2SAT 98
--- NOTE | 2022-01-11 12:41 | ED.ABDPAIN ---
HPI - Abdominal Pain General Chief Complaint: Abdominal Pain Stated Complaint: Black stool/Abd pain/Back pain Time Seen by Provider: 01/11/22 12:39 Source: patient Mode of arrival: ambulatory History of Present Illness HPI narrative: 76-year-old male with a past medical history of HTN, GERD, prostate CA, HLD, vitamin-D deficiency, presenting to the ED complaining of intermittent right flank pain radiating to RLQ x few days with associated black stool x2 days. Denies fever, chills nausea, vomiting, diarrhea, dysuria / hematuria. Denies taking AC MD elicited complaint: abdominal pain Onset (ago): day(s) Related Data Home Medications Medication Instructions Recorded Confirmed multivitamin (Multiple Vitamins 1 tab PO DAILY 04/04/20 01/06/22 tablet) omega 0-fly-nuv-fish oil 100 1 cap PO .once a day 04/04/20 01/06/22 mg-160 mg-1,000 mg capsule (Fish Oil) cholecalciferol (vitamin D3) 25 25 mcg PO DAILY 09/29/21 01/06/22 mcg (1,000 unit) capsule Previous Rx's Medication Instructions Recorded metoprolol succinate 100 mg 100 mg PO DAILY #90 tabs 02/16/21 tablet,extended release 24 hr atorvastatin 40 mg tablet 40 mg PO DAILY #90 tabs 08/11/21 omeprazole 40 mg capsule,delayed 40 mg PO DAILY 90 days #90 caps 08/11/21 release lisinopril 10 mg tablet 10 mg PO DAILY #90 tabs 09/10/21 tamsulosin 0.4 mg capsule 0.4 mg PO DAILY #90 caps 09/10/21 gabapentin 300 mg capsule 300 mg PO BID #30 caps 12/28/21 (Neurontin) acetaminophen 500 mg tablet 500 mg PO Q6H PRN fever or pain 01/11/22 (Tylenol Extra Strength) #14 tabs lidocaine 5 % topical patch 1 patch topical DAILY PRN pain #30 01/11/22 (Lidoderm) ea naproxen 500 mg tablet 500 mg PO BID PRN pain 10 days #20 01/11/22 tabs Allergies Allergy/AdvReac Type Severity Reaction Status Date / Time No Known Allergies Allergy Verified 01/06/22 14:42 Review of Systems Review of Systems Constitutional: No Fever, No Chills, No Fatigue, No Malaise ENT/Mouth: No Hearing loss, No Ear Pain, No Nasal Congestion, No sore throat, No Rhinorrhea, No Swallowing Difficulty Eyes: No Eye Pain, No Swelling, No Redness Cardiovascular: No Chest Pain, No SOB, No Dyspnea on Exertion, No Orthopnea, No Edema, No Palpitations Respiratory: No Cough, No Sputum, No Dyspnea Gastrointestinal: No Nausea, No Vomiting, No Diarrhea, No Constipation, + Abdominal pain, No Hematochezia, + Melena Genitourinary: No irregular bleeding, No Dysuria, No Urinary Frequency, No Hematuria, No Urinary Incontinence/retention, No Flank Pain Musculoskeletal: No joint pain, No Myalgias, No Joint Swelling Skin: No Skin Lesions, No rash Neuro: No Weakness, No Numbness, No Dizziness, No Headache Yes all other systems are reviewed and are negative Constitutional: Reports as per [facility] Past Medical History Attestation statement: The following information was validated with the patient. Medical History Benign essential hypertension Benign prostatic hyperplasia with urinary frequency GERD (gastroesophageal reflux disease) History of prostate cancer Impaired fasting glucose Overweight (BMI 25.0-29.9) Pure hypercholesterolemia Vitamin D deficiency Surgical History No pertinent past surgical history Family History Family History Father Medical history unknown Mother CVD (cardiovascular disease) Social History Social History Housing: House Alcohol intake: never Patient Tobacco Use Status: Never used Tobacco e-Cigarette/Vaping Use: Never Used Second Hand Smoke Exposure: Yes Use of substances other than those prescribed or required for medical reasons: No Advance Directives: No Advance Directives Information Provided: Yes service: Yes Current occupational status: retired Cognitive needs: No Hearing needs: No Vision needs: No Physical Exam ED Vital Signs: Vital Signs - 24 hr 01/11/22 09:02 01/11/22 12:28 Temperature 98.7 F 98.6 F Pulse Rate 82 77 Respiratory Rate 20 Blood Pressure 178/81 H 174/91 H Pulse Oximetry 97 98 Oxygen Delivery Method Room Air BMI result Body Mass Index 26.3 Const General: cooperative, healthy appearing and no acute distress Orientation/consciousness: patient oriented x3 Limitations: no limitations HENMT Head: Yes normal to inspection and Yes atraumatic Ears: hearing grossly normal bilaterally General nose exam: Normal external nose present Face and sinus: Yes normal facial exam Eyes General: appearance normal, both eyes and all related structures EOM: EOMs intact bilaterally Neck Neck: Yes normal visual inspection and Yes no meningeal signs Resp Effort & Inspection: normal respiratory effort and no respiratory distress Auscultation: clear to auscultation bilaterally Cardio Rate: regular rate Heart sounds: S1 normal heart sound present and S2 normal heart sound present GI Other: brown stool noted on rectal Inspection: Yes normal to inspection Palpation (GI): Soft to palpation, Tenderness to palpation present (GI) in the RLQ; with no rebound tenderness, no guarding and not rigid Rectal Exam - Male: No hemorrhoids General: Yes CVA tenderness on the right Back/Spine/Pelvis Back: CVA tenderness Skin Rashes: no rashes Wounds: no wounds Neuro General: patient oriented x3, tone normal and no meningeal signs Gait exam (Neuro): Normal gait present Extrem General: Yes normal to inspection Course Course Course Narrative: - no leukocytosis. Labs otherwise unremarkable. UA negative. - Occult stool negative CT abdomen pelvis w con IMPRESSION: Colonic diverticulosis. No evidence of acute diverticulitis or other acute intra-abdominal process.? > results discussed with patient. Reports symptomatic improvement/ resolution at present. Discussed worrisome signs and symptoms and strict return precautions and when to return to the emergency department. He verbalized understanding and feels safe for discharge home MDM - Abdominal Pain MDM Narrative Medical decision making narrative: 76-year-old male with a past medical history of HTN, GERD, prostate CA, HLD, vitamin-D deficiency, presenting to the ED complaining of intermittent right flank pain radiating to RLQ x few days with associated black stool x2 days. on exam vital signs stable, NAD/ nontoxic appearing, abdomen soft with right CVA tenderness and RLQ tenderness, no rebound or guarding. brown stool noted on rectal. Concern for renal stone/colic vs pyelo/ UTI vs GI bleed vs appendicitis or colitis. Plan: Labs, UA, CT AP, IVF, occult stool Differential Diagnosis Differential diagnosis: Likely abdominal pain, acute appendicitis, calculus of kidney, diverticulitis and renal colic Medical Records Attestation: I reviewed the patient's medical records. Lab Data Attestation: I reviewed the patient's lab results. Result diagrams: 01/11/22 10:22 01/11/22 10:22 Labs: Lab Results 01/11/22 01/11/22 01/11/22 Range/Units 10: 10:22 10:28 WBC 8.5 (4.8-10.8) X10*3/uL RBC 5.03 (4.60-5.80) X10*6/uL Hgb 15.0 (14.0-18.0) g/dl Hct 44.8 (42.0-52.0) % MCV 89.1 (80.0-98.0) fL MCH 29.8 (27.0-33.0) pg MCHC 33.5 (31.0-36.0) g/dl RDW 12.8 (11.0-16.0) % Plt Count 219 (160-400) X10*3/uL MPV 10.6 (9.4-12.4) fL Immature Gran % (Auto) 0.5 H (0.0-0.4) % Neut % (Auto) 68.9 (45-73) % Lymph % (Auto) 21.0 (20-40) % [place] % (Auto) 8.7 (2-11) % Eos % (Auto) 0.2 (0-4) % Baso % (Auto) 0.7 (0-2) % Lymph # (Auto) 1.8 (1.2-4.9) X10*3/uL [place] # (Auto) 0.7 (0.1-1.2) X10*3/uL Eos # (Auto) 0.0 (0.0-0.4) X10*3/uL Baso # (Auto) 0.1 (0.0-0.2) X10*3/uL Abs Immat Gran (auto) 0.04 H (0.00-0.03) X10*3/uL Absolute Neuts (auto) 5.9 (2.0-8.3) x10*3/uL Absolute Nucleated RBC 0.000 (0.0-0.012) X10*3/uL Nucleated RBC % (auto) 0.0 (0.0-0.2) /100WBC Sodium 136 (135-145) mmol/L Potassium 4.4 (3.3-5.1) mmol/L Chloride 105 (96-108) mmol/L Carbon Dioxide 22 (22-29) mmol/L Anion Gap 13 (12-20) BUN 11 (9-16) mg/dL Creatinine 0.87 (0.5-1.4) mg/dL Estim Creat Clear Calc 75.7 Estimated GFR > 60 Random Glucose 103 (60-115) mg/dL Calcium 9.3 D (8.4-10.2) mg/dL Magnesium 2.3 (1.6-2.6) mg/dL Total Bilirubin 0.8 (0.0-1.0) mg/dL Direct Bilirubin 0.4 (0.0-0.5) mg/dL AST 21 (5-37) U/L ALT 27 (0-40) U/L Alkaline Phosphatase 78 (39-117) U/L Total Protein 7.1 (6.5-8.0) g/dL Albumin 4.6 (3.5-5.0) g/dL Lipase 18 (8-78) U/L Urine Color YELLOW Urine Appearance CLEAR Urine pH 6.5 (5.0-8.0) Ur Specific [place] 1.015 (1.005-1.025) Urine Protein NEG (NEG-TRACE) MG/DL Urine Glucose (UA) NEG (NEG) MG/DL Urine Ketones NEG (NEG) MG/DL Urine Blood NEG (NEG) Urine Nitrite NEG (NEG) Ur Leukocyte Esterase NEG (NEG) Stool Occult Blood (NEGATIVE) 01/11/22 Range/Units 13:00 WBC (4.8-10.8) X10*3/uL RBC (4.60-5.80) X10*6/uL Hgb (14.0-18.0) g/dl Hct (42.0-52.0) % MCV (80.0-98.0) fL MCH (27.0-33.0) pg MCHC (31.0-36.0) g/dl RDW (11.0-16.0) % Plt Count (160-400) X10*3/uL MPV (9.4-12.4) fL Immature Gran % (Auto) (0.0-0.4) % Neut % (Auto) (45-73) % Lymph % (Auto) (20-40) % [place] % (Auto) (2-11) % Eos % (Auto) (0-4) % Baso % (Auto) (0-2) % Lymph # (Auto) (1.2-4.9) X10*3/uL [place] # (Auto) (0.1-1.2) X10*3/uL Eos # (Auto) (0.0-0.4) X10*3/uL Baso # (Auto) (0.0-0.2) X10*3/uL Abs Immat Gran (auto) (0.00-0.03) X10*3/uL Absolute Neuts (auto) (2.0-8.3) x10*3/uL Absolute Nucleated RBC (0.0-0.012) X10*3/uL Nucleated RBC % (auto) (0.0-0.2) /100WBC Sodium (135-145) mmol/L Potassium (3.3-5.1) mmol/L Chloride (96-108) mmol/L Carbon Dioxide (22-29) mmol/L Anion Gap (12-20) BUN (9-16) mg/dL Creatinine (0.5-1.4) mg/dL Estim Creat Clear Calc Estimated GFR Random Glucose (60-115) mg/dL Calcium (8.4-10.2) mg/dL Magnesium (1.6-2.6) mg/dL Total Bilirubin (0.0-1.0) mg/dL Direct Bilirubin (0.0-0.5) mg/dL AST (5-37) U/L ALT (0-40) U/L Alkaline Phosphatase (39-117) U/L Total Protein (6.5-8.0) g/dL Albumin (3.5-5.0) g/dL Lipase (8-78) U/L Urine Color Urine Appearance Urine pH (5.0-8.0) Ur Specific [place] (1.005-1.025) Urine Protein (NEG-TRACE) MG/DL Urine Glucose (UA) (NEG) MG/DL Urine Ketones (NEG) MG/DL Urine Blood (NEG) Urine Nitrite (NEG) Ur Leukocyte Esterase (NEG) Stool Occult Blood NEGATIVE (NEGATIVE) Discharge Plan Discharge Clinical Impression: Acute flank pain Patient Disposition: Home, Self-Care Instructions: Flank Pain (ED) Additional Instructions: your blood work, urine, and CT scan were reassuring today in the emergency department. Please have close follow-up with your doctor. Flexeril is a muscle relaxer, take at night as it makes you drowsy, do not drive, drink alcohol, or operate machinery while taking it Naproxen as an anti-inflammatory / pain medication, take with food Lidoderm patches are numbing patches, apply to painful area In addition take Tylenol at home If symptoms persist or worsen, pain becomes unbearable, you developed urinary retention or incontinence, bloody/black stool, you are unable to eat or drink please return to the emergency department Prescriptions: New lidocaine [Lidoderm] 5 % adhesive patch,medicated 1 patch topical DAILY MDD remove after 12 hours PRN (Reason: pain) Qty: 30 0RF Rx Instructions: leave on most painful area for up to 12 hrs naproxen 500 mg tablet 500 mg PO BID PRN (Reason: pain) 10 Days Qty: 20 0RF acetaminophen [Tylenol Extra Strength] 500 mg tablet 500 mg PO Q6H PRN (Reason: fever or pain) Qty: 14 0RF No Action metoprolol succinate 100 mg tablet extended release 24 hr 100 mg PO DAILY Qty: 90 3RF omeprazole 40 mg capsule,delayed release(DR/EC) 40 mg PO DAILY 90 Days Qty: 90 1RF atorvastatin 40 mg tablet 40 mg PO DAILY Qty: 90 3RF tamsulosin 0.4 mg capsule 0.4 mg PO DAILY Qty: 90 1RF lisinopril 10 mg tablet 10 mg PO DAILY Qty: 90 1RF Fish Oil 100-160-1,000 mg capsule 1 cap PO .once a day multivitamin [Multiple Vitamins] Tablet 1 tab PO DAILY gabapentin [Neurontin] 300 mg capsule 300 mg PO BID Qty: 30 0RF cholecalciferol (vitamin D3) 25 mcg (1,000 unit) capsule 25 mcg PO DAILY Referrals: Vlad South MD [Primary Care Provider] - 2 days
[2022-01-11 13:13] LABS: OBS Int Ctl Valid YES; OBS1 NEGATIVE (NEGATIVE)
[2022-01-11 13:16] LABS: Magnesium 2.3 mg/dL (1.6-2.6)
[2022-01-11] MEDS: iohexoL 350 MG/ML 100 ML INFUS..BTL IV (15:29)
[2022-01-11] MEDS: Ketorolac Tromethamine 15 MG/ML VIAL IVPUSH (17:04)
[2022-01-11 17:05] VITALS: BP 151/73; PULSE 71; RESP 16; O2SAT 97
== END 2022-01-11 17:12 | disposition home or self-care (01) ==
PROVIDERS: Physician Assistant; Emergency Provider Emergency Medicine; PCP Internal Medicine
DX: R10.31 Right lower quadrant pain (principal); Z79.899 Other long term (current) drug therapy
CPT/HCPCS: 36415; 74177; 80048; 80076; 81003; 82272; 83690; 83735; 85025; 96374; 99284; J1885; Q9967

== ENCOUNTER 2022-01-16 08:17 | Outpatient (REF) | payer BC, SELFPAY ==
[2022-01-18 11:46] LABS: OBS1 NEGATIVE (NEGATIVE)
[2022-01-18 11:47] LABS: OBS Int Ctl Valid YES; OBS2 NEGATIVE (NEGATIVE); OBS3 NEGATIVE (NEGATIVE)
== END 2022-01-16 08:18 | disposition home or self-care (01) ==
LOC: HO.LNP 08:17
PROVIDERS: Visit Provider Nurse Practitioner Family
DX: K92.1 Melena (principal); R10.9 Unspecified abdominal pain
CPT/HCPCS: 82270

== ENCOUNTER 2022-01-18 07:34 | Outpatient (REF) | payer BC, SELFPAY | END 2022-01-18 07:35 | disposition home or self-care (01) | LOC: HO.HMGCLNP 07:34 | PROVIDERS: Visit Provider Nurse Practitioner Family | DX: Z13.89 Encounter for screening for other disorder (principal) ==

== ENCOUNTER → 2022-02-16 12:27 | Outpatient (REF) | payer BC, SELFPAY ==
--- NOTE | 2022-02-16 12:37 | HM_ITS ---
* Total monitoring time 6 days and 22 hours. * Underlying rhythm is sinus. Average rate is 67/Min. Range 40 to 138/Min. * Frequent supraventricular ectopy. [place] of 6.5%. Several short runs. Longest episode was 41 beats. Rates in the 120s-130s. Probable atrial tachycardia. * Occasional ventricular ectopy. [place] of 1.1%. 3 morphologies. Some couplets. No significant runs. * No patient events. MTDD
--- NOTE | 2022-02-16 12:37 | CA_ITS ---
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 Normal LV systolic function with grade 1 diastolic dysfunction 2. Mildly dilated left atrium 3. Within normal limits cardiac valvular Doppler 4. Normal RV systolic pressure 5. No gross pericardial effusion Findings Left Ventricle Normal left ventricular size, thickness, and systolic function. The visually estimated ejection fraction is between 60-65%. Spectral Doppler is indicative of an impaired relaxation filling pattern. E/E prime ratio is <8, consistent with normal filling pressures. Evidence suggests grade I (mild) diastolic dysfunction. Right Ventricle Normal right ventricular cavity size and systolic function. Atria The left atrium is mildly dilated. There is lipomatous hypertrophy of the interatrial septum. There is no evidence of interatrial shunt. The right atrium is likely dilated. Aortic Valve The aortic valve structure and function is likely normal. There is no aortic valve stenosis. There is no aortic valve regurgitation. Mitral Valve Likely normal mitral valve structure and function. There is mild anterior and posterior mitral leaflet thickening. There is trace mitral valve regurgitation. There is no mitral valve stenosis. Pulmonic Valve The pulmonic valve is likely normal. There is trace pulmonic valve regurgitation. Tricuspid Valve Normal tricuspid valve structure. There is mild tricuspid valve regurgitation. The right ventricular systolic pressure is normal. The right ventricular systolic pressure is 35 mmHg. Normal right atrial pressure. There is no evidence of pulmonary hypertension. Great Vessels All visible segments of the aorta are normal in size. The pulmonary artery was not well visualized. Venous The inferior vena cava is normal in size and collapses greater than 50% with inspiration. Pericardium/Pleural There is no evidence of pericardial effusion. Prior Study Comparison no previous study in the last 5 years for comparison Measurements 2D Linear Measurements IVSd: 0.91 0.6-0.9/0.6-1.0 cm LVIDd: 4.62 3.9-5.3/4.2-5.9 cm LVIDd Index: 2.24 2.4-3.2/2.2-3.1 cm/m2 LVIDs: 2.86 2.0-3.6 cm LVPWd: 0.95 0.7-1.1 cm LA Diam: 3.20 2.7-3.8/3.0-4.0 cm LAIDs Index: 1.55 1.5-2.3 cm/m2 LV Mass: 181.21 67-162/88-224 g LV Mass Index: 87.97 43-95/49-115 g/m2 LVOT Diam: 2.30 3.0+(-)1.3 cm 2D Systolic Function EF 4C: 61.20 >55% EF 2C: 62.10 >55% EF BiP: 62.90 >55% Mitral Valve MV Pk E: 0.59 MV PK A: 0.57 MV Decel Time: 284.00 E/A: 1.00 E'Lateral: 10.10 E'Medial: 8.38 E/E' Med: 7.10 E/E' Lat: 5.90 PHT: 83.00 MVA PHT: 2.65 Decel [place]: 2.08 Aortic Valve AoV Pk Yamil: 1.25 AoV Mn Yamil: 0.92 AoV VTI: 0.28 AoV Pk Grad: 6.00 Aov Mn Grad: 4.00 BONNY Cont.VTI: 2.94 LVOT LVOT Pk Yamil: 0.87 LVOT Mn Yamil: 0.54 LVOT VTI: 0.20 LVOT Pk Grad: 3.00 LVOT Mn Grad: 1.00 LVOT Diam: 2.30 LVOT Area: 4.15 Diastolic Function MV Pk E: 0.59 MV Pk A: 0.57 E/A: 1.00 E'Medial: 8.38 E/E' Med: 7.10 E' Laterial: 10.10 E/E' Lat: 5.90 Right Ventricle TAPSE (mm): 19.90 TVS' Yamil: 9.90 Tricuspid Valve TR Pk Yamil: 2.82 TR Pk Grad: 32.00 RA Press: 3.00 RVSP: 35.00 Great Vessels Aorta Sinus of Valsalva: 3.58 2.0-3.5 cm Ao Asc: 3.60 2.1-3.4 cm Updated in Other Vendor System with Status of Final Edgard Maciel MD electronically signed on 02/16/2022 4:02:53 PM with status of Final
== END ==
LOC: HO.CARD 12:27
PROVIDERS: PCP Internal Medicine; Visit Provider Internal Medicine Cardiovascular Disease
DX: I47.1 Supraventricular tachycardia (principal); R00.2 Palpitations; I10 Essential (primary) hypertension
CPT/HCPCS: 93242; 93306

== ENCOUNTER 2022-03-26 06:15 | Outpatient (REF) | payer BC, SELFPAY ==
[2022-03-26 11:15] LABS: MANUAL DIFF FLAG NO
[2022-03-26 11:35] LABS: Basophils Absolute Auto 0.1 X10*3/uL (0.0-0.2); Basophils Percent Auto 0.7 % (0-2); Eosinophils Absolute Auto 0.1 X10*3/uL (0.0-0.4); Eosinophils Percent Auto 1.5 % (0-4); Hematocrit 43.8 % (42.0-52.0); Hemoglobin 14.4 g/dl (14.0-18.0); Imm Gran Abs Auto 0.04 X10*3/uL (0.00-0.03); Imm Gran Pct Auto 0.5 % (0.0-0.4); Lymphocytes Absolute Auto 2.8 X10*3/uL (1.2-4.9); Lymphocytes Percent Auto 32.4 % (20-40); Mean Corpuscular HGB Conc 32.9 g/dl (31.0-36.0); Mean Corpuscular Hemoglobin 29.9 pg (27.0-33.0); Mean Corpuscular Volume 90.9 fL (80.0-98.0); Mean Platelet Volume 10.7 fL (9.4-12.4); Monocytes Absolute Auto 0.7 X10*3/uL (0.1-1.2); Monocytes Percent Auto 8.5 % (2-11); Neutrophils Absolute Auto 4.9 x10*3/uL (2.0-8.3); Neutrophils Percent Auto 56.4 % (45-73); Platelet Count 221 X10*3/uL (160-400); Red Blood Count 4.82 X10*6/uL (4.60-5.80); White Blood Count 8.7 X10*3/uL (4.8-10.8)
[2022-03-26 11:36] LABS: Estimated Average Glucose 117 mg/dL; Hemoglobin A1c % 5.7 %
[2022-03-26 11:46] LABS: Appearance Urine Clear; Color Urine Yellow; Glucose Urine UA Negative (Negative); Leukocyte Esterase Urine Negative (Negative); Nitrite Urine Negative (Negative); Urine Blood Negative (Negative); Urine Ketones Negative (Negative); Urine Protein Negative (Neg-Trace)
[2022-03-26 11:53] LABS: Alanine Aminotransferase 28 U/L (0-40); Albumin Level 4.5 g/dL (3.5-5.0); Alkaline Phosphatase 79 U/L (39-117); Anion Gap 14 (12-20); Aspartate Amino Transferase 23 U/L (5-37); Blood Urea Nitrogen 13 mg/dL (9-16); Calcium 9.2 mg/dL (8.4-10.2); Carbon Dioxide 24 mmol/L (22-29); Chloride 108 mmol/L (96-108); Cholesterol 146 mg/dL; Estimated Glomerular Filt Rate > 60; Glucose Fasting 107 mg/dL (60-99); HDL Cholesterol 41 mg/dL; LDL Cholesterol Calculated 70 mg/dl; Sodium 142 mmol/L (135-145); Total Protein 6.8 g/dL (6.5-8.0); Triglycerides 177 mg/dL
[2022-03-26 12:16] LABS: TSH reflex Free T4 1.69 uIU/mL (0.32-4.0); Vitamin D 25-OH Total 32.6 ng/mL (>30)
== END 2022-03-26 06:16 | disposition home or self-care (01) ==
LOC: HO.HMGCLDS 06:15
PROVIDERS: PCP Internal Medicine; Visit Provider Internal Medicine
DX: I10 Essential (primary) hypertension (principal); R73.01 Impaired fasting glucose; E55.9 Vitamin D deficiency, unspecified; E78.00 Pure hypercholesterolemia, unspecified
CPT/HCPCS: 36415; 80053; 80061; 81003; 82306; 83036; 84443; 85025

== ENCOUNTER 2022-06-28 08:57 | Day surgery (SDC) | payer BC, SELFPAY ==
[2022-06-22 16:38] VITALS: BMI 29.0
--- NOTE | 2022-06-25 08:23 | MHC.SHP ---
Pre-Procedural Eval Section A Date of Service: 06/25/22 The patient is an INPATIENT: No Changes since office visit: No Cold of Flu in the past 2 weeks, No New Medical Problems, No Changes in Medication and No Patient answered all questions The History & Physical has been completed within 30 days and I have reviewed it.: Yes Section B Chief Complaint: Age-related nuclear cataract, right eye Allergies: Allergies Allergy/AdvReac Type Severity Reaction Status Date / Time No Known Allergies Allergy Verified 06/22/22 16:37 Plan Diagnosis/Plan: Unchanged I have reviewed the history and physical and performed a pertinent physical examination on my patient. No changes have occurred unless specified. Time Spent With Patient Time: Total time managing care of this patient today ____ minutes.
[2022-06-28 10:09] VITALS: BP 157/75; PULSE 74; RESP 18; TEMP 36.7; BMI 28.8
--- NOTE | 2022-06-28 10:14 | HO.ANESPROP2 ---
HPI - Anesthesia Eval Consult details Narrative: Right cataract PMF Active Problems Active Problems: All Active Problems (Updated 06/22/22 @ 16:45 by Jhoana Palomares, RN) Prostate cancer (Acute) History of prostate cancer (Acute) Annual physical exam (Acute) Bilateral foot pain (Acute) Palpitations (Acute) SVT (supraventricular tachycardia) (Acute) Black stool (Acute) Lower back pain (Acute) Preoperative examination (Acute) Cataract, right eye (Acute) Vitamin D deficiency (Acute) Overweight (BMI 25.0-29.9) (Acute) Impaired fasting glucose (Acute) Benign prostatic hyperplasia with urinary frequency (Acute) GERD (gastroesophageal reflux disease) (Acute) Pure hypercholesterolemia (Acute) Benign essential hypertension (Acute) Past Medical History Medical History (Updated 06/22/22 @ 16:45 by Jhoana Palomares RN) Benign essential hypertension Benign prostatic hyperplasia with urinary frequency GERD (gastroesophageal reflux disease) History of prostate cancer Impaired fasting glucose Overweight (BMI 25.0-29.9) Pure hypercholesterolemia Vitamin D deficiency Family History Family History Father Medical history unknown Mother CVD (cardiovascular disease) Family history of problems with anesthesia: No Surgical History Surgical History (Updated 06/22/22 @ 16:48 by Jhoana Palomares RN) History of skin graft History of Problems with Anesthesia: No Social History Social History Housing: House Are you a primary healthcare project manager to a significant other at home: No Do you presently have visiting nurse or other home services: No Alcohol intake: never Patient Tobacco Use Status: Never used Tobacco e-Cigarette/Vaping Use: Never Used Second Hand Smoke Exposure: Yes Have you been hit, kicked, punched, or otherwise hurt by someone within the past year? If so, by whom?: No Are you DNR?: No Advance Directives: No Advance Directives Information Provided: Yes Advance Directives on File: No Recently lost weight without trying: No Nutrition Risks: No Nutritional Risk Poor oral hygiene: No service: Yes Current occupational status: retired Cognitive needs: No Hearing needs: No Vision needs: Yes (reading glasses) Meds Allergies Allergy/AdvReac Type Severity Reaction Status Date / Time No Known Allergies Allergy Verified 06/22/22 16:37 Active Medications: Current Medications Povidone Iodine (Povidone Iodine 5 % Ophth Soln 30 Ml Bottle) 1 appl EYE-RIGHT PREOP PRN PRN Reason: Pre-Op Surgical Implant Prophy Home Medications Medication Instructions Recorded Confirmed Last Taken Type multivitamin (Multiple Vitamins 1 tab PO DAILY 04/04/20 06/22/22 Unknown History tablet) omega 2-uxa-efv-fish oil 100 1 cap PO .once a day 04/04/20 06/22/22 Unknown History mg-160 mg-1,000 mg capsule (Fish Oil) cholecalciferol (vitamin D3) 25 25 mcg PO DAILY 09/29/21 06/22/22 Unknown History mcg (1,000 unit) capsule Exam Exam Date and Time: June 28, 2022 1014 Height,Weight and Vital Signs: Height 5 ft 8 in Weight 86.183 kg Last Vital Signs Temp 98.0 F 06/28/22 10:09 Pulse 74 06/28/22 10:09 Resp 18 06/28/22 10:09 BP 157/75 H 06/28/22 10:09 Airway Mallampati Class: II TM Dist: >3cm Neck ROM: Full Loose/Missing/Broken Teeth: No Heart: ok Lungs: ok Assessment and Plan Assessment Anesthesia Assessment: Anesthesia Plan Discussed and Chart Reviewed Final Anesthetic Review Family History of Problems with Anesthesia: No History of Problems with Anesthesia: No Final Preanesthetic Review: No Changes in Pt Med Stat, Meds/Allgs Chart Reviewed, Consent Obtained/Reviewed and Anes Risks/Benef Reviewed Patient Risk: Intermediate Procedure Risk: Intermediate Anesthetic Plan Anesthetic Plan: MAC: and Agree w/ Assess. and Plan Disposition: Standard PACU
[2022-06-28] MEDS: Tetracaine HCl/PF 0.5% Oph Sol 4 ML DROPS 1 DROP EYE-RIGHT (10:18)
[2022-06-28] MEDS: Phenylephrine HCL 2.5% Oph SoL 2 ML BOTTLE 1 DROP EYE-RIGHT ×3 (10:19→10:23)
[2022-06-28] MEDS: Cyclopentolate 1 % Ophth Sol 2 ML DRPBTL 1 DROP EYE-RIGHT ×3 (10:19→10:24)
[2022-06-28] MEDS: Ketorolac Tromethamine 0.5% Op 5 ML DROPS 1 DROP EYE-RIGHT ×3 (10:19→10:24)
[2022-06-28] MEDS: Tropicamide 1 % Ophth Sol 3 ML BTL 1 DROP EYE-RIGHT ×3 (10:19→10:26)
--- NOTE | 2022-06-28 10:59 | HO.PNOPHT ---
Ophthalmology Procedure Procedure Date of Service: 06/28/22 Ophthalmology Viscoelastic: Healoziel Gomezt Dual Pack Pro Ophthalmology Lenses: TECNIS [id number] (17.5) Procedure Notes: PREOPERATIVE DIAGNOSIS: Decreased visual acuity right eye secondary to cataract POSTOPERATIVE DIAGNOSIS: Same PROCEDURE: Right cataract extraction with intraocular lens insertion SURGEON: Negro Sorto M.D. ANESTHESIA: Topical/MAC ESTIMATED BLOOD LOSS: None COMPLICATIONS: None After obtaining informed consent, the patient was brought to the operating room suite and placed in the supine position. After adequate sedation per anesthesia, topical drops of Tetracaine were given to the right eye. The eye was then prepped and draped in the usual sterile fashion. The operating room microscope was then positioned over the operative eye and a lid speculum placed. A paracentesis was created. Viscoelastic was then instilled into the anterior chamber. A three plane incision was then created temporally, utilizing a 2.85 mm keratome. Capsulotomy forceps were then utilized to create a circular tear capsulotomy. Hydrodissection and hydrodelineation were carried out until adequate mobilization of the nucleus occurred. Phacoemulsification was then utilized to remove the dense central nucleus followed by removal of the cortical material utilizing the automated aspiration irrigation unit. Viscoelastic was instilled into the posterior capsular bag followed by placement of a posterior chamber intraocular lens without difficulty. The residual Viscoelastic was then removed utilizing the automated IA machine. The wound was checked and found to be watertight. The patient tolerated the procedure well and the lid speculum was removed. Intracameral injection of Vigamox 0.1 mL followed by a subtenon injection of Kenalog-40 0.2 mL were administered. The patient will be seen in the a.m.
[2022-06-28 11:25] VITALS: BP 160/61; PULSE 57; RESP 23; TEMP 37.1; O2SAT 99
[2022-06-28 11:30] VITALS: BP 125/61; PULSE 58; RESP 20; TEMP 37.1; O2SAT 99
== END 2022-06-28 11:42 | disposition home or self-care (01) ==
PROVIDERS: PCP Internal Medicine; Visit Provider Ophthalmology
PROC: (CPT 66985; principal; 2022-06-28 11:30)
DX: H25.11 Age-related nuclear cataract, right eye (principal); H52.4 Presbyopia; I10 Essential (primary) hypertension; E78.00 Pure hypercholesterolemia, unspecified; R73.01 Impaired fasting glucose; I47.1 Supraventricular tachycardia; N40.1 Benign prostatic hyperplasia with lower urinary tract symptoms; R35.0 Frequency of micturition; E66.3 Overweight; Z68.29 Body mass index [BMI] 29.0-29.9, adult; Z79.899 Other long term (current) drug therapy; Z85.46 Personal history of malignant neoplasm of prostate; Z87.891 Personal history of nicotine dependence
CPT/HCPCS: 66984; J3301; V2632

== ENCOUNTER → 2022-09-07 12:59 | Outpatient (BNVA) | payer BC, SELFPAY | PROVIDERS: PCP Internal Medicine; Referring Provider Internal Medicine; Visit Provider Nurse Practitioner Family | DX: R00.2 Palpitations (principal); I47.1 Supraventricular tachycardia; I10 Essential (primary) hypertension; R94.31 Abnormal electrocardiogram [ECG] [EKG] | CPT/HCPCS: 93005 ==

== ENCOUNTER 2022-09-20 06:15 | Outpatient (REF) | payer BC, SELFPAY ==
[2022-09-20 11:15] LABS: MANUAL DIFF FLAG NO
[2022-09-20 11:53] LABS: Appearance Urine Turbid; Color Urine Orange; Glucose Urine UA Negative (Negative); Leukocyte Esterase Urine Negative (Negative); Nitrite Urine Negative (Negative); Specific Gravity - Urine >= 1.030 (1.005-1.025); Urine Blood Negative (Negative); Urine Ketones Negative (Negative); Urine Protein Negative (Neg-Trace)
[2022-09-20 11:58] LABS: Basophils Absolute Auto 0.1 X10*3/uL (0.0-0.2); Basophils Percent Auto 0.7 % (0-2); Eosinophils Absolute Auto 0.1 X10*3/uL (0.0-0.4); Eosinophils Percent Auto 1.4 % (0-4); Hematocrit 44.5 % (42.0-52.0); Hemoglobin 14.6 g/dl (14.0-18.0); Imm Gran Abs Auto 0.03 X10*3/uL (0.00-0.03); Imm Gran Pct Auto 0.4 % (0.0-0.4); Lymphocytes Absolute Auto 2.6 X10*3/uL (1.2-4.9); Mean Corpuscular HGB Conc 32.8 g/dl (31.0-36.0); Mean Corpuscular Hemoglobin 29.6 pg (27.0-33.0); Mean Corpuscular Volume 90.3 fL (80.0-98.0); Mean Platelet Volume 11.5 fL (9.4-12.4); Monocytes Absolute Auto 0.8 X10*3/uL (0.1-1.2); Monocytes Percent Auto 9.2 % (2-11); Neutrophils Percent Auto 58.3 % (45-73); Platelet Count 196 X10*3/uL (160-400); Red Blood Count 4.93 X10*6/uL (4.60-5.80); White Blood Count 8.6 X10*3/uL (4.8-10.8)
[2022-09-20 12:25] LABS: TSH reflex Free T4 2.56 uIU/mL (0.32-4.0); Vitamin D 25-OH Total 37.3 ng/mL (>30)
[2022-09-20 12:28] LABS: Prostate Specific Antigen < 0.10 ng/mL (<0.05-4.0)
[2022-09-20 12:29] LABS: Alanine Aminotransferase 29 U/L (0-40); Albumin Level 4.2 g/dL (3.5-5.0); Alkaline Phosphatase 69 U/L (39-117); Anion Gap 14 (12-20); Aspartate Amino Transferase 22 U/L (5-37); Bilirubin Total 0.9 mg/dL (0.0-1.0); Blood Urea Nitrogen 19 mg/dL (9-16); Calcium 9.3 mg/dL (8.4-10.2); Carbon Dioxide 22 mmol/L (22-29); Chloride 107 mmol/L (96-108); Cholesterol 139 mg/dL; Estimated Glomerular Filt Rate > 60; Glucose Fasting 112 mg/dL (60-99); HDL Cholesterol 41 mg/dL; LDL Cholesterol Calculated 67 mg/dl; Potassium 4.4 mmol/L (3.3-5.1); Sodium 139 mmol/L (135-145); Total Protein 6.6 g/dL (6.5-8.0); Triglycerides 155 mg/dL
== END 2022-09-20 06:16 | disposition home or self-care (01) ==
LOC: HO.HMGCLDS 06:15
PROVIDERS: PCP Internal Medicine; Visit Provider Urology
DX: Z12.5 Encounter for screening for malignant neoplasm of prostate (principal); E78.00 Pure hypercholesterolemia, unspecified; E55.9 Vitamin D deficiency, unspecified; R30.0 Dysuria; C61 Malignant neoplasm of prostate; N13.8 Other obstructive and reflux uropathy; N40.1 Benign prostatic hyperplasia with lower urinary tract symptoms; I10 Essential (primary) hypertension
CPT/HCPCS: 36415; 80053; 80061; 81003; 82306; 84153; 84443; 85025

== ENCOUNTER → 2022-09-28 09:20 | Outpatient (BNVA) | payer BC, SELFPAY | PROVIDERS: PCP Internal Medicine; Visit Provider Urology | DX: C61 Malignant neoplasm of prostate (principal) | CPT/HCPCS: 51798 ==

== ENCOUNTER → 2022-10-11 09:42 | Outpatient (REF) | payer BC, SELFPAY ==
--- NOTE | ~2022-10-11 | NM_ITS ---
EXERCISE MYOCARDIAL PERFUSION STUDY INDICATION: Coronary artery disease, assess for ischemia TECHNIQUE: The patient was brought in for an exercise perfusion study on 10/11/2022. Patient performed exercise as per Oc protocol and was injected 30 mCi of sestamibi once target heart rate was achieved. Images were obtained using the SPECT gamma camera interlaced with the gating device. Images were obtained in supine position. Resting perfusion study was performed on 10/13/2022. Patient was administered 30 mCi of sestamibi intravenously at rest. Images were then obtained in supine position. Images were processed with the software and compared side to side in short axis, horizontal long axis and vertical long axis views. Total DLP 166mGy-cm. FINDINGS: Raw images were reviewed. Arms by the patient's side. The stress perfusion study showed diminished tracer uptake along the inferior wall. With CT attenuation correction, there is improved uptake along the inferior wall suggestive of diaphragmatic attenuation artifact. The gated study shows normal LV systolic function with calculated LVEF of >70%. LV cavity is normal in size. The gated study shows normal wall thickening and contraction of segments. Resting study shows diminished tracer uptake along the inferior wall. With CT attenuation correction, there is improvement suggestive of diaphragmatic attenuation artifact. Gating at rest reveals normal wall motion with ejection fraction at 67%. The findings are consistent with fixed inferior defect suspected to be from diaphragmatic attenuation artifact. No reversible defects. NM/NM matt perf SPECT rest & str IMPRESSION: 1. Myocardial perfusion imaging study shows no evidence of ischemia or infarction. 2. Gated LVEF is > 70% during stress and 67% during rest. 3. Transient ischemic dilatation not present. EKG component of the test reported separately.
--- NOTE | 2022-10-11 09:46 | CA_ITS ---
Acquisition Time: 2022-10-11 10:11:49 Total Exercise Time: 00:04:30 Test Indications: ABN EKG Medications: SEE H Protocol: CHICHI Max HR: 146 BPM 102% of Pred: 142 BPM Max BP: 194/068 mmHG Max Work Load: 4.0 METS Exercise stress test with exercise 4 min 30 sec of Chichi stage 1 ( with speed reduced in increments due to fatigue), achieving 102% MPHR ( holding HR > 100% for 2 min) with mild sob, no chest discomfort, with isolated PACs and PVCs, with brisk chronotrpic and normotensive response to exercise, without EKG changes meeting criteria for ischemia. Nuclear images pending. Test reviewed with Dr Daniels. Referred By: Coreen Casarez Overread By: COREEN CASAREZ
== END ==
LOC: HO.CARD 09:42
PROVIDERS: Visit Provider Nurse Practitioner Family
DX: I47.1 Supraventricular tachycardia (principal); R00.2 Palpitations; R94.31 Abnormal electrocardiogram [ECG] [EKG]
CPT/HCPCS: 78452; 93017; A9500

== ENCOUNTER 2023-01-17 11:34 | Outpatient (AMB) | payer BC, SELFPAY ==
--- NOTE | 2023-01-17 11:36 | AM.OFFWIN_ITS ---
Intake Vital Signs 01/17/23 11:38 Height 5 ft 8 in BP 142/70 H Blood Pressure Location Rt brachial Position Sitting Pulse 95 Pulse Source Pulse Oximeter Temp 97.5 F Temp Source Temporal Artery Scan Pulse Oximetry (%) 99 Oxygen Delivery Method Room Air Intake Visit Reasons: EP, Pain in right leg, ankle Intake Note: Pt is here c/o right leg and ankle pain. Pt states the pain starts in on his upper thigh. Patient Tobacco Use Status: Never used Tobacco Allergies No Known Allergies Allergy (Verified 01/17/23 11:37) Do you need a note to return to daycare/school/sports/work: No HPI EP, Pain in right leg, ankle HPI Details 77-year-old male presents to the office for a sick visit. Patient is complaining of pain in the right upper thigh for the past few days. He is physically active but does not recall any fall or injury. No fevers or chills. PFSH Medical History Benign essential hypertension Benign prostatic hyperplasia with urinary frequency Cataract (lens) fragments in eye following cataract surgery, right eye GERD (gastroesophageal reflux disease) History of prostate cancer Impaired fasting glucose Overweight (BMI 25.0-29.9) Pure hypercholesterolemia Vitamin D deficiency Surgical History History of cataract surgery History of skin graft Family History Father Medical history unknown Mother CVD (cardiovascular disease) Social History Housing: House Are you a primary resident care technician to a significant other at home: No Do you presently have visiting nurse or other home services: No Alcohol intake: never Patient Tobacco Use Status: Never used Tobacco e-Cigarette/Vaping Use: Never Used Second Hand Smoke Exposure: Yes service: Yes Current occupational status: retired Cognitive needs: No Hearing needs: No Vision needs: Yes (reading glasses) Physical Exam Vital Signs: Last Vital Signs Temp 97.5 F 01/17/23 11:38 Pulse 95 01/17/23 11:38 BP 142/70 H 01/17/23 11:38 Pulse Ox 99 01/17/23 11:38 Oxygen Delivery Method Room Air 01/17/23 11:38 Const General: cooperative and healthy appearing Nutritional Appearance: well nourished Orientation/consciousness: patient oriented x3 Limitations: no limitations HEENT Head: Yes normal to inspection Eyes General: appearance normal, both eyes and all related structures Neck Neck: Yes normal visual inspection Chest Chest palpation & inspection: normal palpation of entire chest wall Resp Effort & Inspection: normal respiratory effort Neuro General: patient oriented x3 Extrem Other: Right hip: Full range of motion. Full flexion, extension internal and external rotation. Tenderness over the greater trochanter area. Assessment & Plan Assessment & Plan (1) Contusion of lower leg, right: Code(s): S80.11XA - Contusion of right lower leg, initial encounter Plan: Meloxicam called in. If symptoms not better to follow-up here. X-rays were reviewed by me personally. No fractures seen Orders: Orders XR femur RT 2V Today S80.11XA - Contusion of right lower leg, initial encounter Coding Level of Care Code Est Pt Level 4 (20681) Diagnoses Contusion of lower leg, right S80.11XA
[2023-01-17 11:38] VITALS: BP 142/70; PULSE 95; TEMP 36.4; O2SAT 99
== END 2023-01-17 12:29 | disposition home or self-care (01) ==
PROVIDERS: PCP Internal Medicine; Visit Provider Internal Medicine
DX: S80.11XA Contusion of right lower leg, initial encounter (principal)
CPT/HCPCS: 99214

== ENCOUNTER 2023-01-17 12:10 | Outpatient (REF) | payer BC, SELFPAY ==
--- NOTE | ~2023-01-17 | XR_ITS ---
EXAMINATION: XR FEMUR, RIGHT CLINICAL INFORMATION: Contusion right lower leg COMPARISON: None available. TECHNIQUE: 4 views of the right femur were obtained. FINDINGS: Mild right hip arthritis, lateral acetabular spurring. No significant trochanteric or spurring. No acute fracture or malalignment. Mild symphysis pubis degeneration. Surgical clips projected over the pubis. No abnormal soft tissue calcification. XR/XR femur RT 2V IMPRESSION: Mild right hip arthritis. No acute osseous findings seen.
== END 2023-01-17 12:11 | disposition home or self-care (01) ==
LOC: HO.HMGCX 12:10
PROVIDERS: PCP Internal Medicine; Visit Provider Internal Medicine
DX: S80.11XA Contusion of right lower leg, initial encounter (principal)
CPT/HCPCS: 73552

== ENCOUNTER 2023-02-02 09:37 | Outpatient (AMB) | payer BC, SELFPAY ==
[2023-02-02 10:06] VITALS: BP 132/66; PULSE 86; O2SAT 95; BMI 28.5
--- NOTE | 2023-02-02 10:06 | A.OFFPC_ITS ---
Vital Signs 02/02/23 10:06 Height 5 ft 8 in Weight 187 lb 8 oz BMI 28.5 BP 132/66 Blood Pressure Location Lt brachial Position Sitting Pulse 86 Pulse Source Pulse Oximeter Pulse Oximetry (%) 95 Oxygen Delivery Method Room Air Intake Visit Reasons: pain in R thigh Allergies No Known Allergies Allergy (Verified 02/02/23 10:20) Medication List - Last Reconciled 02/02/23 by Germain Parnell PA-C atorvastatin 40 mg PO DAILY cholecalciferol (vitamin D3) 25 mcg PO DAILY lisinopril 10 mg PO DAILY meloxicam 15 mg PO DAILY metoprolol succinate ER 100 mg PO DAILY multivitamin (Multiple Vitamins tablet) 1 tab PO DAILY omega 1-nby-nuc-fish oil 100-160-1,000 mg (Fish Oil) 1 cap PO .once a day omeprazole 40 mg PO DAILY 90 days tamsulosin 0.4 mg PO DAILY Tobacco use date assessed: 10/01/22 Dental Screening Dental Screen Date: 02/02/23 Did you have a dental visit in the last 12 months?: Yes Did you have a dental problem in the last 6 months where you did not have access to dental care?: No Was dental information given to patient?: Patient has dentist HPI pain in R thigh HPI Details Patient is a 77-year-old male here today for problem visit. Recently seen at the walk-in clinic for acute leg pain x-rays of his femur without any bone lesion though did have mild arthritis in his right hip. He cannot recall any acute injury or falls. Was given meloxicam which worked well for for his right hip pain. He also complains of a mild cough, nasal and sinus congestion over the last several weeks and wonders if he can get an x-ray of his sinuses and chest. He reports having history of pneumonia [facility] Medical History Benign essential hypertension Benign prostatic hyperplasia with urinary frequency Cataract (lens) fragments in eye following cataract surgery, right eye GERD (gastroesophageal reflux disease) History of prostate cancer Impaired fasting glucose Overweight (BMI 25.0-29.9) Pure hypercholesterolemia Vitamin D deficiency Surgical History History of cataract surgery History of skin graft Family History Father Medical history unknown Mother CVD (cardiovascular disease) Social History Housing: House Are you a primary med care manager to a significant other at home: No Do you presently have visiting nurse or other home services: No Alcohol intake: never Patient Tobacco Use Status: Never used Tobacco e-Cigarette/Vaping Use: Never Used Second Hand Smoke Exposure: Yes service: Yes Current occupational status: retired Cognitive needs: No Hearing needs: No Vision needs: Yes (reading glasses) Questionnaire PHQ-9 Over the last 2 weeks, how often have you been bothered by any of the following problems? 1. Little interest or pleasure in doing things: not at all 2. Feeling down, depressed, or hopeless: not at all 3. Trouble falling or staying asleep, or sleeping too much: not at all 4. Feeling tired or having little energy: not at all 5. Poor appetite or overeating: not at all 6. Feeling bad about yourself - or that you are a failure or have let yourself or your family down: not at all 7. Trouble concentrating on things, such as reading the newspaper or watching television: not at all 8. Moving or speaking so slowly that other people could have noticed. Or the opposite - being so fidgety or restless that you have been moving around a lot more than usual: not at all 9. Thoughts that you would be better off or of hurting yourself in some way: not at all Total score: 0 Depression Screening Interpretation: Negative 93219 - PHQ-9 Billing: Yes Source: Developed by Drs. Savage Oseguera, Jennifer Ga, Jhoan Maciel and colleagues, with an educational yuliana from [employer]. Thrive Questionnaire Date Thrive assessed: 10/01/22 I am a: Patient What is your living situation today?: I have a steady place to live Within the past 12 months, did the food you bought not last and you didn't have the money to get more?: Never true Within the past 12 months, did you worry whether your food would run out before you got money to buy more?: Never true Do you have trouble paying for medicines?: No Do you have trouble getting transportation to medical appointments?: No Do you have trouble paying your heating and electricity bill?: No Do you have trouble taking care of your child, family member or friend?: No Do you have trouble with day-to-day activities such as bathing, preparing meals, shopping, managing finances, etc.?: No Are you currently unemployed and looking for a job?: No Are you interested in more education?: No Currently or been in a relationship where the following occur: no concerns reported AUDIT C Alcohol Use Questionnaire (AUDIT-C) 1. How often do you have a drink containing alcohol?: Never 3. How often do you have six or more drinks on one occasion?: Never Total Score: 0 Score Reviewed/Action Taken: Yes CLAUDETTE-7 AMB Questionnaire CLAUDETTE-7 Date CLAUDETTE - 7 assessed: 10/01/22 Feeling nervous, anxious, or on edge: 0 = Not at all Not being able to stop or control worryin = Not at all Worrying too much about different things: 0 = Not at all Trouble relaxin = Not at all Being so restless that it is hard to sit still: 0 = Not at all Becoming easily annoyed or irritable: 0 = Not at all Feeling afraid as if something awful might happen: 0 = Not at all Total CLAUDETTE-7 score (0-4 normal; 5-9 mild; 10-14 moderate; 15-21 severe): 0 Source: Developed by Drs. Savage Oseguera, Jennifer Ga, Jhoan Maciel and colleagues, with an educational yuliana from [employer]. CLAUDETTE-7 Assessment Billing CLAUDETTE-7 Assessment Tool: CLAUDETTE-7 Assessment 93347 Review of Systems Const Denies headache(s) Eyes Denies loss of vision ENT Denies vertigo, Denies dizziness, Denies headache(s) and Denies sore throat Card Denies chest pain, Denies leg edema and Denies lightheadedness Resp Denies cough, Denies hemoptysis and Denies wheezing GI Denies abdominal pain, Denies melena, Denies constipation, Denies diarrhea and Denies vomiting Denies dysuria, Denies urinary frequency and Denies urinary urgency Musc Denies arthralgias, Denies joint swelling, Denies numbness and Denies tingling Neuro Denies Abnormal speech present, Denies behavioral changes, Denies vertigo, Denies dizziness, Denies headache(s), Denies loss of vision, Denies memory loss, Denies numbness and Denies tingling Psych Denies anxiety, Denies behavioral changes, Denies depression, Denies memory loss and Denies panic attacks Kb/Lymph Denies easy bleeding and Denies easy bruising Aller/Immun Denies wheezing Physical exam (Primary Care) Vital Signs: Last Vital Signs Pulse 86 02/02/23 10:06 BP 132/66 02/02/23 10:06 Pulse Ox 95 02/02/23 10:06 Oxygen Delivery Method Room Air 02/02/23 10:06 BMI result Body Mass Index 28.5 Tobacco/Smoking Status: Tobacco use Status Tobacco use date assessed 10/01/22 02/02/23 10:12 Patient Tobacco Use Status Never used Tobacco 02/02/23 10:12 e-Cigarette/Vaping Use Never Used 02/02/23 10:12 PHQ-9: PHQ-9 Score PHQ-9: Total score 0 02/02/23 10:23 Depression Screening Interpretation: Negative Thrive Assessment: Date of Thrive Assessment Date Thrive assessed 10/01/22 02/02/23 10:12 Currently or been in a relationship where the following occur: no concerns reported Const General: healthy appearing, no acute distress, alert and awake Nutritional Appearance: well nourished Orientation/consciousness: oriented to person, oriented to place and oriented to time HENMT Ears: TM's normal bilaterally General nose exam: Normal nasal mucous membranes and turbinates present Eyes Conjunctivae: conjunctivae normal Sclerae: sclerae normal Pupils: Equal, round and reactive pupils present Neck Neck: Yes no lymphadenopathy and Yes no JVD Thyroid: Thyroid normal Carotids: no bruits Resp Effort & Inspection: normal respiratory effort and not tachypneic Auscultation: no crackles, no rales, no rhonchi and no wheezes Cardio Rate: regular rate Rhythm: regular rhythm Heart sounds: no murmurs and normal S1 and S2 GI Palpation (GI): Soft to palpation, nontender, no hepatomegaly and no splenomegaly Auscultation: normal bowel sounds Skin General skin exam: no rashes or lesions noted and dry skin Neuro General: oriented to person, oriented to place and oriented to time Cranial nerves: Yes Equal, round and reactive pupils present Speech: No Abnormal speech present Gait exam (Neuro): Normal gait present Motor exam (neuro): no tremor noted Extrem Right upper extremity: full ROM Left upper extremity: full ROM Right lower extremity: full ROM; no edema Left lower extremity: full ROM; no edema Psych Mental Status: mental status grossly normal Speech and movement: Normal speech and movement present Affect: normal affect Attitude: cooperative Thought process: Normal thought process present Assessment and Plan Assessment & Plan (1) Osteoarthritis of right hip: Code(s): M16.11 - Unilateral primary osteoarthritis, right hip Qualifiers: Osteoarthritis type: primary Qualified Code(s): M16.11 - Unilateral primary osteoarthritis, right hip Plan: Most recent x-ray showing right hip osteoarthritis. He reports meloxicam has been very helpful for him. Would like another script to use on a p.r.n. basis for right hip pain. (2) Sinusitis: Code(s): J32.9 - Chronic sinusitis, unspecified Qualifiers: Chronicity: subacute Sinusitis location: frontal Qualified Code(s): J01.10 - Acute frontal sinusitis, unspecified Plan: He reports having nasal congestion, sinus congestion and a mild cough. He would like chest x-ray and sinus x-ray. Advised on nasal spray and allergy medication for the next week. If symptoms worsen or fever develops will consider antibiotic. Orders: Orders XR chest 2V Today J32.9 - Chronic sinusitis, unspecified, R05.9 - Cough, unspecified XR sinus min 3V Today J32.9 - Chronic sinusitis, unspecified Medications: Refilled meloxicam 15 mg PO DAILY 14 tabs 0RF M16.11 - Unilateral primary osteoarthritis, right hip Coding Level of Care Code Est Pt Level 3 (95564) Diagnoses Osteoarthritis of right hip M16.11 Osteoarthritis type: primary Sinusitis J01.10 Chronicity: subacute Sinusitis location: frontal Additional Codes CLAUDETTE-7 Assessment Billing - CLAUDETTE-7 Assessment Tool: CLAUDETTE-7 Assessment 95041 ([id number])
== END 2023-02-02 10:30 | disposition home or self-care (01) ==
PROVIDERS: PCP Internal Medicine; Visit Provider Physician Assistant
DX: M16.11 Unilateral primary osteoarthritis, right hip (principal); J01.10 Acute frontal sinusitis, unspecified
CPT/HCPCS: 99213

== ENCOUNTER 2023-02-02 10:49 | Outpatient (REF) | payer BC, SELFPAY ==
--- NOTE | ~2023-02-02 | XR_ITS ---
EXAMINATION: XR SINUSES CLINICAL INFORMATION: Chronic sinusitis, unspecified COMPARISON: CT head 11/13/2021 TECHNIQUE: 5 views of the sinuses were obtained. FINDINGS: Paranasal sinuses appear clear without air-fluid levels. No fractures are identified. No radiodense foreign bodies. XR/XR sinus min 3V IMPRESSION: Unremarkable examination. If there is continued clinical concern, dedicated CT scan of the paranasal sinuses could be obtained.
--- NOTE | ~2023-02-02 | XR_ITS ---
EXAMINATION: XR CHEST CLINICAL INFORMATION: Chronic sinusitis, unspecified COMPARISON: AP portable chest 11/13/2021 TECHNIQUE: 2 views of the chest were obtained. FINDINGS: The lungs are well expanded. There is no change in mild opacity at the left lung base consistent with atelectasis and/or pneumonia. Trace linear density in the right costophrenic angle likely represents atelectasis. The cardiomediastinal silhouette is within normal limits. There are no pleural effusions. Mild elevation of left hemidiaphragm is again noted. There is mild kyphosis with mild anterior wedge compression of a midthoracic vertebral body. XR/XR chest 2V IMPRESSION: No change in mild left lower lobe atelectasis and/or pneumonia.
== END 2023-02-02 10:50 | disposition home or self-care (01) ==
LOC: HO.HMGCX 10:49
PROVIDERS: PCP Internal Medicine; Visit Provider Physician Assistant
DX: J32.9 Chronic sinusitis, unspecified (principal); R05.9 Cough, unspecified
CPT/HCPCS: 70220; 71046

== ENCOUNTER 2023-02-28 10:23 | Outpatient (AMB) | payer BC, SELFPAY ==
[2023-02-28 10:29] VITALS: BP 147/67; PULSE 90; O2SAT 95; BMI 28.8
--- NOTE | 2023-02-28 10:29 | MHC.OFFVIS ---
Intake Vital Signs 02/28/23 10:29 Height 5 ft 8 in Weight 189 lb 9.561 oz BMI 28.8 BP 147/67 H Blood Pressure Location Lt brachial Pulse 90 Pulse Source Doppler Pulse Oximetry (%) 95 Oxygen Delivery Method Room Air Intake Visit Reasons: Atelectasis Allergies No Known Allergies Allergy (Verified 02/28/23 10:32) HPI Atelectasis HPI Details 77-year-old gentleman, lifetime nonsmoker, with no personal of family history of lung disease referred for evaluation of productive cough and atelectasis noted on chest x-ray. Patient states that at that time the x-ray was taking he was having bronchitic symptoms at what treated with a course of antibiotic. Patient states that by this visit his cough has resolved. He denies any pulmonary related concerns or complaints at this time. On review chest x-ray from 02/02/2023 demonstrated mild left lower lobe atelectasis with no concern for consolidation. [facility] Medical History Benign essential hypertension Benign prostatic hyperplasia with urinary frequency Cataract (lens) fragments in eye following cataract surgery, right eye GERD (gastroesophageal reflux disease) History of prostate cancer Impaired fasting glucose Overweight (BMI 25.0-29.9) Pure hypercholesterolemia Vitamin D deficiency Surgical History History of cataract surgery History of skin graft Family History Father Medical history unknown Mother CVD (cardiovascular disease) Social History Housing: House Are you a primary resident care director to a significant other at home: No Do you presently have visiting nurse or other home services: No Alcohol intake: never Patient Tobacco Use Status: Never used Tobacco e-Cigarette/Vaping Use: Never Used Second Hand Smoke Exposure: Yes service: Yes Current occupational status: retired Cognitive needs: No Hearing needs: No Vision needs: Yes (reading glasses) Review of Systems Const Denies daytime sleepiness, Denies excessive sweating, Denies fatigue, Denies fever(s), Denies lethargy, Denies malaise, Denies night sweats, Denies snoring and Denies weight loss Eyes Denies blurry vision and Denies itchy eyes ENT Denies nasal congestion, Denies post nasal drip, Denies sinus pain, Denies sinus pressure and Denies other ( Thrush) Card Denies chest pain, Denies pedal edema, Denies dyspnea, Denies orthopnea and Denies paroxysmal nocturnal dyspnea Resp Denies cough, Denies hemoptysis, Denies excessive phlegm production, Denies dyspnea, Denies snoring and Denies wheezing GI Denies abdominal pain and Denies heartburn Musc Denies myalgias, Denies arthralgias and Denies joint swelling Skin/Breast Denies rash Neuro Denies memory loss and Denies seizure-like activity Psych Denies abnormal sleep pattern, Denies anxiety and Denies memory loss Endo Denies excessive sweating, Denies fatigue and Denies heat intolerance Kb/Lymph Denies easy bruising Aller/Immun Denies itchy eyes, Denies seasonal rhinorrhea and Denies wheezing Physical Exam Vital Signs: Last Vital Signs Pulse 90 02/28/23 10:29 BP 147/67 H 02/28/23 10:29 Pulse Ox 95 02/28/23 10:29 Oxygen Delivery Method Room Air 02/28/23 10:29 BMI result Body Mass Index 28.8 Const General: no acute distress and alert Nutritional Appearance: not obese Orientation/consciousness: Other orientation findings ( oriented) HEENT Head: Yes atraumatic Eyes General: appearance normal, both eyes and all related structures Sclerae: sclerae normal EOM: EOMs intact bilaterally Neck Neck: Yes supple Lymphatic: no lymphadenopathy noted Resp Effort & Inspection: normal respiratory effort and no use of accessory muscles Auscultation: clear to auscultation bilaterally Cardio Rate: regular rate Rhythm: regular rhythm Heart sounds: no gallops, no murmurs and no rubs Skin General skin exam: other ( warm) Extrem General: No clubbing, No cyanosis and No edema Assessment & Plan Assessment & Plan (1) Chronic cough: Code(s): R05.3 - Chronic cough Plan: Resolved per patient at the time of this evaluation. (2) Atelectasis of left lung: Code(s): J98.11 - Atelectasis Plan: Mild left basilar atelectasis in a low risk patient. Consider repeating chest x-ray in 6 months. Coding Level of Care Code New Pt Level 3 (69322) Diagnoses Chronic cough R05.3 Atelectasis of left lung J98.11
== END 2023-02-28 10:44 | disposition home or self-care (01) ==
PROVIDERS: PCP Internal Medicine; Visit Provider Internal Medicine Pulmonary Disease
DX: R05.3 Chronic cough (principal); J98.11 Atelectasis
CPT/HCPCS: 99203

== ENCOUNTER → 2023-02-28 10:23 | Outpatient (BNVA) | payer BC, SELFPAY | PROVIDERS: PCP Internal Medicine; Visit Provider Internal Medicine Pulmonary Disease ==

== ENCOUNTER 2023-03-08 12:52 | Outpatient (AMB) | payer BC, SELFPAY ==
[2023-03-08 13:10] VITALS: BP 162/70; PULSE 73; BMI 28.4
--- NOTE | 2023-03-08 13:10 | A.OFFVIS_ITS ---
Intake Vital Signs 03/08/23 13:10 Height 5 ft 8 in Weight 186 lb 15.232 oz BMI 28.4 BP 162/70 H Blood Pressure Location Lt brachial Pulse 73 Pulse Source Pulse Oximeter Intake Visit Reasons: 6 month follow up Intake Note: 6 month f/u Allergies No Known Allergies Allergy (Verified 03/08/23 13:15) Medication List - Last Reconciled 03/08/23 by Coreen Casarez, TEST ENGINEERING TECHNICIAN-C atorvastatin 40 mg PO DAILY cholecalciferol (vitamin D3) 25 mcg PO DAILY lisinopril 20 mg PO DAILY meloxicam 15 mg PO DAILY metoprolol succinate ER 100 mg PO DAILY multivitamin (Multiple Vitamins tablet) 1 tab PO DAILY omega 4-pui-mfp-fish oil 100-160-1,000 mg (Fish Oil) 1 cap PO .once a day omeprazole 40 mg PO DAILY 90 days tamsulosin 0.4 mg PO DAILY HPI 6 month follow up HPI Details David is a 77-year-old male with past medical history of hypertension, hyperlipidemia, SVT who presents for follow up. Today he reports he has been doing well overall. He does feel some brief rapid heartbeats but only for a few seconds. No sustained rapid or irregular beats. No presyncope, syncope, falls. No chest discomfort at rest or with activity. No significant shortness of breath, PND, orthopnea or edema. He now only drinks decaf coffee. He tries to remain active around the house. He does no routine exercise. [facility] Medical History Cataract (lens) fragments in eye following cataract surgery, right eye Vitamin D deficiency Overweight (BMI 25.0-29.9) History of prostate cancer Impaired fasting glucose Benign prostatic hyperplasia with urinary frequency GERD (gastroesophageal reflux disease) Pure hypercholesterolemia Benign essential hypertension Surgical History History of cataract surgery History of skin graft Family History Father Medical history unknown Mother CVD (cardiovascular disease) Social History Housing: House Are you a primary career representative to a significant other at home: No Do you presently have visiting nurse or other home services: No Alcohol intake: never Patient Tobacco Use Status: Never used Tobacco e-Cigarette/Vaping Use: Never Used Second Hand Smoke Exposure: Yes service: Yes Current occupational status: retired Cognitive needs: No Hearing needs: No Vision needs: Yes (reading glasses) Review of Systems Const All systems reviewed & are unremarkable except as noted in HPI and below ENT Denies dizziness Card Denies chest pain, Denies chest pain at rest, Denies chest pain with activity, Reports rapid heart rate (brief at times), Denies pedal edema, Denies edema, Denies leg edema, Denies lightheadedness, Denies palpitations, Denies dyspnea, Denies dyspnea on exertion and Denies orthopnea Resp Denies cough, Denies dyspnea and Denies dyspnea on exertion GI Denies hematochezia and Denies change in stool character Musc Denies abnormal gait, Denies limited range of motion, Denies muscle cramps, Denies muscle weakness, Denies numbness, Denies radiating pain into limb, Denies stiffness and Denies tingling Neuro Denies abnormal gait, Denies dizziness, Denies numbness and Denies tingling Endo Denies palpitations Physical Exam Vital Signs: Last Vital Signs Pulse 73 03/08/23 13:10 BP 162/70 H 03/08/23 13:10 BMI result Body Mass Index 28.4 Const General: cooperative, healthy appearing, comfortable and no acute distress Orientation/consciousness: patient oriented x3 Neck Neck: Yes normal visual inspection Resp Effort & Inspection: normal respiratory effort Auscultation: clear to auscultation bilaterally, no crackles, no rales, no rhonchi and no wheezes Cardio Jugular venous distension: no JVD Rate: regular rate Rhythm: regular rhythm Heart sounds: S1 normal heart sound present, S2 normal heart sound present, no murmurs and no rubs Neuro General: patient oriented x3 Extrem General: Yes normal to inspection Psych Appearance: grossly normal Mental Status: mental status grossly normal Speech and movement: Normal speech and movement present Assessment & Plan Assessment & Plan (1) Palpitations: Code(s): R00.2 - Palpitations Plan: ER visit October 2021 for noncardiac reason and noted to have episode of SVT which resolved with vagal maneuver. I do not see EKG tracing or rhythm strip from that visit rhythm strip confirming the diagnosis at that time. EKG done that day shows normal sinus rhythm, rate 95, normal [place] and QRS intervals, QTC 439 millisecond. He was continued on his usual metoprolol 100 mg daily. On follow- up cardiology visit he reported intermittent heart palpitations. Holter monitor done 02/16/2022 for 1 week shows sinus rhythm with average heart rate 67, heart rate range 40 to 138, frequent SVE, 6.5% of the time, short runs of atrial tach, longest 41 beats with rates 120-130, occasional ventricular ectopy. Echocardiogram done 02/16/2022 shows normal EF grade 1 diastolic dysfunction and mild left atrial dilatation. On follow-up visit he admitted to drinking 8 mugs of caffeinated coffee per day and he has since changed to decaf. Today he reports only brief palpitations lasting seconds on occasion that are not bothersome to him. He has not had any sustained rapid rates. EKG done last visit showed normal sinus rhythm, rate 96. Pulse has regular rate and rhythm today. He does have multiple cardiac risk factors including hypertension, hyperlipidemia, impaired fasting glucose, age, sedentary. A nuclear stress test was done on 10/13/2022 showing normal myocardial perfusion imaging. Will continue on current metoprolol dose. Instructed to call with increasing heart palpitations.. If needed is to metoprolol dose can be further increased to 150 mg daily. Will arrange for cardiology follow-up in 6 months, sooner if needed. (2) SVT (supraventricular tachycardia): Code(s): I47.1 - Supraventricular tachycardia Plan: As above (3) Benign essential hypertension: Code(s): I10 - Essential (primary) hypertension Plan: Elevated today. Also elevated at office visit for another provider on 02/28/2023. He is on lisinopril 10 mg daily. Will take the liberty to increase his dose to 20 mg daily. He has a follow-up with his PCP in 1 month. His blood pressure will be reached checked at that time. Medications: New lisinopril 20 mg PO DAILY 90 tabs 1RF Discontinued lisinopril Discontinued Reason: Doctor's Order 10 mg PO DAILY 90 tabs 1RF Coding Level of Care Code Est Pt Level 3 (69417) Diagnoses Palpitations R00.2 SVT (supraventricular tachycardia) I47.1 Benign essential hypertension I10 Time Spent (min) 22
== END 2023-03-08 13:34 | disposition home or self-care (01) ==
PROVIDERS: PCP Internal Medicine; Visit Provider Nurse Practitioner Family
DX: R00.2 Palpitations (principal); I47.1 Supraventricular tachycardia; I10 Essential (primary) hypertension
CPT/HCPCS: 99213

== ENCOUNTER → 2023-03-08 12:52 | Outpatient (BNVA) | payer BC, SELFPAY | PROVIDERS: PCP Internal Medicine; Visit Provider Nurse Practitioner Family ==

== ENCOUNTER 2023-03-22 07:18 | Outpatient (REF) | payer BC, SELFPAY ==
[2023-03-22 11:52] LABS: MANUAL DIFF FLAG NO
[2023-03-22 12:00] LABS: Appearance Urine Clear; Color Urine Yellow; Glucose Urine UA Negative (Negative); Leukocyte Esterase Urine Negative (Negative); Nitrite Urine Negative (Negative); Urine Blood Negative (Negative); Urine Ketones Negative (Negative); Urine Protein Negative (Neg-Trace)
[2023-03-22 12:03] LABS: Basophils Absolute Auto 0.1 X10*3/uL (0.0-0.2); Basophils Percent Auto 0.8 % (0-2); Eosinophils Absolute Auto 0.2 X10*3/uL (0.0-0.4); Eosinophils Percent Auto 1.4 % (0-4); Hematocrit 45.4 % (42.0-52.0); Hemoglobin 14.6 g/dl (14.0-18.0); Imm Gran Abs Auto 0.07 X10*3/uL (0.00-0.03); Imm Gran Pct Auto 0.6 % (0.0-0.4); Lymphocytes Absolute Auto 4.3 X10*3/uL (1.2-4.9); Mean Corpuscular HGB Conc 32.2 g/dl (31.0-36.0); Mean Corpuscular Hemoglobin 29.8 pg (27.0-33.0); Mean Corpuscular Volume 92.7 fL (80.0-98.0); Monocytes Absolute Auto 1.2 X10*3/uL (0.1-1.2); Monocytes Percent Auto 10.2 % (2-11); Neutrophils Absolute Auto 5.8 x10*3/uL (2.0-8.3); Platelet Count 273 X10*3/uL (160-400); Red Cell Distribution Width 13.5 % (11.0-16.0); White Blood Count 11.6 X10*3/uL (4.8-10.8)
[2023-03-22 12:11] LABS: Estimated Average Glucose 111 mg/dL; Hemoglobin A1c % 5.5 % (<6.0)
[2023-03-22 12:29] LABS: Alanine Aminotransferase 24 U/L (0-40); Albumin Level 4.4 g/dL (3.5-5.0); Alkaline Phosphatase 71 U/L (39-117); Anion Gap 12 (12-20); Aspartate Amino Transferase 21 U/L (5-37); Bilirubin Total 0.9 mg/dL (0.0-1.0); Blood Urea Nitrogen 15 mg/dL (9-16); Calcium 9.6 mg/dL (8.4-10.2); Carbon Dioxide 25 mmol/L (22-29); Chloride 106 mmol/L (96-108); Cholesterol 160 mg/dL (<200); Estimated Glomerular Filt Rate > 60; Glucose Fasting 107 mg/dL (60-99); HDL Cholesterol 44 mg/dL (>40); LDL Cholesterol Calculated 78 mg/dL (<100); Sodium 139 mmol/L (135-145); Total Protein 7.2 g/dL (6.5-8.0); Triglycerides 194 mg/dL (<150)
[2023-03-22 12:49] LABS: TSH reflex Free T4 2.08 uIU/mL (0.32-4.0); Vitamin D 25-OH Total 47.2 ng/mL (>30)
== END 2023-03-22 07:19 | disposition home or self-care (01) ==
LOC: HO.HMGCLDS 07:18
PROVIDERS: PCP Internal Medicine; Visit Provider Internal Medicine
DX: E55.9 Vitamin D deficiency, unspecified (principal); I10 Essential (primary) hypertension; E78.00 Pure hypercholesterolemia, unspecified; R73.01 Impaired fasting glucose; R30.0 Dysuria
CPT/HCPCS: 36415; 80053; 80061; 81003; 82306; 83036; 84443; 85025

== ENCOUNTER 2023-03-31 09:38 | Outpatient (AMB) | payer BC, SELFPAY ==
[2023-03-31 10:14] VITALS: BP 118/78; PULSE 87; O2SAT 98; BMI 28.3
--- NOTE | 2023-03-31 10:14 | MHC.PC.OV ---
Vital Signs 03/31/23 10:14 Height 5 ft 8 in Weight 186 lb BMI 28.3 BP 118/78 Blood Pressure Location Lt brachial Position Sitting Pulse 87 Pulse Source Pulse Oximeter Pulse Oximetry (%) 98 Oxygen Delivery Method Room Air Intake Visit Reasons: 6mth f/u [employer] Required: No Accompanied by: Self / Same As Patient Allergies No Known Allergies Allergy (Verified 03/31/23 10:48) Medication List - Last Reconciled 03/31/23 by Vlad South MD atorvastatin 40 mg PO DAILY cholecalciferol (vitamin D3) 25 mcg PO DAILY lisinopril 20 mg PO DAILY meloxicam 15 mg PO DAILY metoprolol succinate ER 100 mg PO DAILY multivitamin (Multiple Vitamins tablet) 1 tab PO DAILY omega 6-ywg-rey-fish oil 100-160-1,000 mg (Fish Oil) 1 cap PO .once a day omeprazole 40 mg PO DAILY 90 days tamsulosin 0.4 mg PO DAILY Tobacco use date assessed: 03/31/23 Fall risk assessment: No Falls in past year Last assessed Fall Risk: 03/31/23 Dental Screening Dental Screen Date: 03/31/23 Did you have a dental visit in the last 12 months?: Yes Did you have a dental problem in the last 6 months where you did not have access to dental care?: No Was dental information given to patient?: Patient has dentist HPI 6mth f/u HPI Details Patient comes in today for his follow up visit States that he has been experiencing increased sinus pressure and congestion > 2 weeks now Has been taking/using some OTC meds for the past couple of weeks but states that they are not helping much He denies any fever or sore throat Denies any headaches or dizziness Denies any chest pains or shortness of breath lately Had stress testing and a myocardial perfusion scan done back in September 2022 - was told that both tests came out normal Relates that cardiology increased his Lisinopril from 10 mg to 20 mg QD back in September 2022 - notes that his BP has been doing better since then No nausea/vomiting, no abdominal pain No change in bowel habits noted Had his follow up labs done last week - to discuss his results Adds that he received his flu shot and RSV vaccine from his local pharmacy back on 03/11/23 and just got his COVID booster last week on 03/23/23 Adds that he had chest x-rays done a few months ago when he was seen here by another provider for some respiratory symptoms and it showed some early pneumonia changes and some atelectasis - would like to get a chest x-ray repeated in a few months for follow up when he goes for his next follow up labs [facility] Medical History Cataract (lens) fragments in eye following cataract surgery, right eye Vitamin D deficiency Overweight (BMI 25.0-29.9) History of prostate cancer Impaired fasting glucose Benign prostatic hyperplasia with urinary frequency GERD (gastroesophageal reflux disease) Pure hypercholesterolemia Benign essential hypertension Surgical History History of cataract surgery History of skin graft Family History Father Medical history unknown Mother CVD (cardiovascular disease) Social History Housing: House Are you a primary adult live in caregiver to a significant other at home: No Do you presently have visiting nurse or other home services: No Alcohol intake: never Patient Tobacco Use Status: Never used Tobacco e-Cigarette/Vaping Use: Never Used Second Hand Smoke Exposure: Yes service: Yes Current occupational status: retired Cognitive needs: No Hearing needs: No Vision needs: Yes (reading glasses) Questionnaire PHQ-9 Over the last 2 weeks, how often have you been bothered by any of the following problems? 1. Little interest or pleasure in doing things: not at all 2. Feeling down, depressed, or hopeless: not at all 3. Trouble falling or staying asleep, or sleeping too much: not at all 4. Feeling tired or having little energy: not at all 5. Poor appetite or overeating: not at all 6. Feeling bad about yourself - or that you are a failure or have let yourself or your family down: not at all 7. Trouble concentrating on things, such as reading the newspaper or watching television: not at all 8. Moving or speaking so slowly that other people could have noticed. Or the opposite - being so fidgety or restless that you have been moving around a lot more than usual: not at all 9. Thoughts that you would be better off or of hurting yourself in some way: not at all Total score: 0 Depression Screening Interpretation: Negative Depression Screening Done: Yes 40551 - PHQ-9 Billing: Yes Source: Developed by Drs. Savage Oseguera, Jennifer Ga, Jhoan Maciel and colleagues, with an educational yuliana from [employer]. Thrive Questionnaire Date Thrive assessed: 03/31/23 I am a: Patient What is your living situation today?: I have a steady place to live Within the past 12 months, did the food you bought not last and you didn't have the money to get more?: Never true Within the past 12 months, did you worry whether your food would run out before you got money to buy more?: Never true Do you have trouble paying for medicines?: No Do you have trouble getting transportation to medical appointments?: No Do you have trouble paying your heating and electricity bill?: No Do you have trouble taking care of your child, family member or friend?: No Do you have trouble with day-to-day activities such as bathing, preparing meals, shopping, managing finances, etc.?: No Are you currently unemployed and looking for a job?: No Are you interested in more education?: No Please select the resources that you would like help with: None Currently or been in a relationship where the following occur: no concerns reported AUDIT C Alcohol Use Questionnaire (AUDIT-C) 1. How often do you have a drink containing alcohol?: Never 3. How often do you have six or more drinks on one occasion?: Never Total Score: 0 Score Reviewed/Action Taken: Yes CLAUDETTE-7 AMB Questionnaire CLAUDETTE-7 Date CLAUDETTE - 7 assessed: 03/31/23 Feeling nervous, anxious, or on edge: 0 = Not at all Not being able to stop or control worryin = Not at all Worrying too much about different things: 0 = Not at all Trouble relaxin = Not at all Being so restless that it is hard to sit still: 0 = Not at all Becoming easily annoyed or irritable: 0 = Not at all Feeling afraid as if something awful might happen: 0 = Not at all Total CLAUDETTE-7 score (0-4 normal; 5-9 mild; 10-14 moderate; 15-21 severe): 0 Source: Developed by Drs. Savage Oseguera, Jennifer Ga, Jhoan Maciel and colleagues, with an educational yuliana from [employer]. CLAUDETTE-7 Assessment Billing CLAUDETTE-7 Assessment Tool: CLAUDETTE-7 Assessment 05744 Review of Systems Const Denies chills, Denies fatigue, Denies fever(s) and Denies headache(s) ENT Denies dysphagia, Denies dizziness, Denies otalgia, Denies headache(s), Reports nasal congestion, Denies odynophagia, Denies sinus pain, Reports sinus pressure and Denies sore throat Card Denies chest pain, Denies rapid heart rate, Denies irregular heart rhythm, Denies palpitations and Denies dyspnea Resp Denies cough, Denies dyspnea and Denies wheezing GI Denies abdominal pain, Denies constipation, Denies dysphagia, Denies heartburn, Denies diarrhea, Denies nausea, Denies odynophagia and Denies vomiting Denies dysuria, Denies nocturia and Denies urinary frequency Skin/Breast Denies rash Neuro Denies dizziness and Denies headache(s) Endo Denies fatigue and Denies palpitations Aller/Immun Denies wheezing Physical exam (Primary Care) Vital Signs: Last Vital Signs Pulse 87 03/31/23 10:14 BP 118/78 03/31/23 10:14 Pulse Ox 98 03/31/23 10:14 Oxygen Delivery Method Room Air 03/31/23 10:14 BMI result Body Mass Index 28.3 Tobacco/Smoking Status: Tobacco use Status Tobacco use date assessed 03/31/23 03/31/23 10:16 Patient Tobacco Use Status Never used Tobacco 03/31/23 10:16 e-Cigarette/Vaping Use Never Used 03/31/23 10:16 PHQ-9: PHQ-9 Score PHQ-9: Total score 0 03/31/23 10:42 Depression Screening Interpretation: Negative Thrive Assessment: Date of Thrive Assessment Date Thrive assessed 03/31/23 03/31/23 10:16 Currently or been in a relationship where the following occur: no concerns reported Const General: no acute distress and alert HENMT Ears: TM's normal bilaterally and EAC's normal Face and sinus: Yes sinuses nontender (but (+) mild discomfort on palpation) Throat: Yes posterior oropharynx normal and Yes tonsils normal (no TP congestion) Neck Neck: Yes no lymphadenopathy and Yes supple Resp Auscultation: clear to auscultation bilaterally, no rales and no wheezes Cardio Rate: regular rate Rhythm: regular rhythm Heart sounds: no murmurs GI Palpation (GI): Soft to palpation and nontender Auscultation: normal bowel sounds Extrem General: Yes no clubbing, cyanosis or edema Results Reviewed Results Reviewed: Laboratory Tests 03/22/23 07:25 WBC 11.6 H Hgb 14.6 Hct 45.4 Plt Count 273 D Sodium 139 Potassium 4.0 Creatinine 0.85 Estimated GFR > 60 Fasting Glucose 107 H Hemoglobin A1c % 5.5 Calcium 9.6 AST 21 ALT 24 Triglycerides 194 H Cholesterol 160 LDL Cholesterol, Calc 78 HDL Cholesterol 44 25-OH Vitamin D Total 47.2 TSH 2.08 Urine pH 6.0 Ur Specific [place] 1.020 Urine Protein Negative Urine Glucose (UA) Negative Assessment and Plan Assessment & Plan (1) Benign essential hypertension: Code(s): I10 - Essential (primary) hypertension Plan: Reinforced low sodium diet - goal is systolic BP of at least 140 to 150 mm or less Continue Lisinopril 20 mg QD (dose increased by cardiology a few months ago) and Metoprolol ER 100 mg QD (2) Pure hypercholesterolemia: Code(s): E78.00 - Pure hypercholesterolemia, unspecified Plan: Results of his labs done last week reviewed and discussed with patient Reinforced low cholesterol diet Continue Atorvastatin 40 mg QD Will recheck his labs and fasting lipids in 6 months for follow up (3) SVT (supraventricular tachycardia): Code(s): I47.1 - Supraventricular tachycardia Plan: Reports that his symptoms are occurring rarely now since he cut back on his daily coffee intake at the recommendation of cardiology (was previously drinking up to 8 mugs of coffee a day) Work ups done, including echocardiogram which came out normal except for grade 1 diastolic dysfunction and mild LA dilatation; EF is normal; and Holter monitor revealed frequent SVTs with baseline of sinus rhythm with average HR of 67 bpm EKG done at his cardiology follow up a few months ago revealed (+) long QT He eventually underwent cardiac stress testing and also had a myocardial perfusion scan done back in September 2022 for further evaluation His EKG stress testing and nuclear stress testing both came back negative for ischemia Follow up with cardiology as scheduled (4) Impaired fasting glucose: Code(s): R73.01 - Impaired fasting glucose Plan: HgbA1c remains normal at 5.5% when checked last week Reinforced low calorie diet/exercise as tolerated (5) GERD (gastroesophageal reflux disease): Code(s): K21.9 - Gastro-esophageal reflux disease without esophagitis Qualifiers: Esophagitis presence: without esophagitis Qualified Code(s): K21.9 - Gastro-esophageal reflux disease without esophagitis Plan: Dietary restrictions reinforced Continue Omeprazole 40 mg QD UGI series done in October 2017 showed (+) significant reflux up to the level of the upper thorax Consider GI referral for EGD if symptoms progress or persist despite Rx (6) Vitamin D deficiency: Code(s): E55.9 - Vitamin D deficiency, unspecified Plan: Continue OTC Vitamin D3 1000 units QD (7) Sinusitis: Code(s): J32.9 - Chronic sinusitis, unspecified Qualifiers: Sinusitis location: frontal Chronicity: subacute Qualified Code(s): J01.10 - Acute frontal sinusitis, unspecified Plan: Will start him on empiric Abx Tx with Amoxicillin 875 mg BID x 7 days Patient is instructed to call of his sinus/respiratory symptoms do not improve following Abx Tx (8) Atelectasis of left lung: Code(s): J98.11 - Atelectasis Plan: Per request, will have him get a repeat chest x-ray in 6 months to follow up on the left lower lobe atelectasis seen on his recent chest x-rays done a few months ago Have reassured patient that the atelectasis does not necessarily mean something is wrong and could be just because of inadequate inspiratory effort (9) Benign prostatic hyperplasia with urinary frequency: Code(s): N40.1 - Benign prostatic hyperplasia with lower urinary tract symptoms; R35.0 - Frequency of micturition Plan: Continue on Tamsulosin 0.4 mg QD Follow-up with urology as scheduled (10) History of prostate cancer: Code(s): Z85.46 - Personal history of malignant neoplasm of prostate Plan: S/P Tx - radiation with short-term hormones 2004 PSA level done earlier this year came back normal / low Follow up with urology as scheduled for continuing surveillance (11) Overweight (BMI 25.0-29.9): Code(s): E66.3 - Overweight Plan: Reinforced diet/exercise as tolerated/lose weight Plan Follow up in 6 months Orders: Orders Complete Blood Count Auto Diff 6 Months I10 - Essential (primary) hypertension Lipid Panel 6 Months E78.00 - Pure hypercholesterolemia, unspecified TSH reflex Free T4 6 Months E78.00 - Pure hypercholesterolemia, unspecified UA CC w/rflx Micro + Cult 6 Months R30.0 - Dysuria Vitamin D 25-OH Total 6 Months E55.9 - Vitamin D deficiency, unspecified Hemoglobin A1c 6 Months R73.01 - Impaired fasting glucose Comprehensive [place]. Panel Fast 6 Months E78.00 - Pure hypercholesterolemia, unspecified XR chest 2V 6 Months J98.11 - Atelectasis, R05.9 - Cough, unspecified Medications: New amoxicillin 875 mg PO BID 7 days 14 tabs 0RF Coding Level of Care Code Est Pt Level 4 (60151) Diagnoses Benign essential hypertension I10 Pure hypercholesterolemia E78.00 SVT (supraventricular tachycardia) I47.1 Impaired fasting glucose R73.01 Gastroesophageal reflux disease without esophagitis K21.9 Esophagitis presence: without esophagitis Vitamin D deficiency E55.9 Subacute frontal sinusitis J01.10 Sinusitis location: frontal Chronicity: subacute Atelectasis of left lung J98.11 Benign prostatic hyperplasia with urinary frequency N40.1; R35.0 History of prostate cancer Z85.46 Overweight (BMI 25.0-29.9) E66.3 Additional Codes CLAUDETTE-7 Assessment Billing - CLAUDETTE-7 Assessment Tool: CLAUDETTE-7 Assessment 90244 ([id number])
== END 2023-03-31 10:57 | disposition home or self-care (01) ==
PROVIDERS: Visit Provider Internal Medicine
DX: I10 Essential (primary) hypertension (principal); E78.00 Pure hypercholesterolemia, unspecified; I47.1 Supraventricular tachycardia; R73.01 Impaired fasting glucose; K21.9 Gastro-esophageal reflux disease without esophagitis; E55.9 Vitamin D deficiency, unspecified; J01.10 Acute frontal sinusitis, unspecified; J98.11 Atelectasis; N40.1 Benign prostatic hyperplasia with lower urinary tract symptoms; R35.0 Frequency of micturition; Z85.46 Personal history of malignant neoplasm of prostate; E66.3 Overweight
CPT/HCPCS: 99214

== ENCOUNTER 2023-09-08 13:06 | Outpatient (AMB) | payer BC, SELFPAY ==
[2023-09-08 13:21] VITALS: BP 134/72; PULSE 70; BMI 29.3
--- NOTE | 2023-09-08 13:21 | MHC.OFFVIS ---
Intake Vital Signs 09/08/23 13:21 Height 5 ft 8 in Weight 192 lb 10.944 oz BMI 29.3 BP 134/72 Blood Pressure Location Lt brachial Position Sitting Pulse 70 Pulse Source Pulse Oximeter Intake Visit Reasons: 6 month follow-up with ekg Associate Pathologist Required: No Allergies No Known Allergies Allergy (Verified 09/08/23 13:23) Medication List - Last Reconciled 09/08/23 by Coreen Casarez NP-C atorvastatin 40 mg PO DAILY cholecalciferol (vitamin D3) 25 mcg PO DAILY lisinopril 20 mg PO DAILY metoprolol succinate ER 100 mg PO DAILY multivitamin (Multiple Vitamins tablet) 1 tab PO DAILY omega 1-yby-sor-fish oil 100-160-1,000 mg (Fish Oil) 1 cap PO .once a day omeprazole 40 mg PO DAILY 90 days tamsulosin 0.4 mg PO DAILY HPI 6 month follow-up with ekg HPI Details David is a 77-year-old male with past medical history of hypertension, hyperlipidemia, SVT who presents for follow up. Today he reports that he has not been feeling any heart palpitations since his last visit 6 months ago. He has been drinking decaf coffee only an has 4-5 cups per day. He is taking his medication as directed. No chest discomfort, shortness of breath, lightheadedness, presyncope, syncope, PND, orthopnea or edema. He reports good activity tolerance. No cardiac questions or concerns. [facility] Medical History Cataract (lens) fragments in eye following cataract surgery, right eye Vitamin D deficiency Overweight (BMI 25.0-29.9) History of prostate cancer Impaired fasting glucose Benign prostatic hyperplasia with urinary frequency GERD (gastroesophageal reflux disease) Pure hypercholesterolemia Benign essential hypertension Surgical History History of cataract surgery History of skin graft Family History Father Medical history unknown Mother CVD (cardiovascular disease) Social History Housing: House Are you a primary emergency care attendant to a significant other at home: No Do you presently have visiting nurse or other home services: No Alcohol intake: never Patient Tobacco Use Status: Never used Tobacco e-Cigarette/Vaping Use: Never Used Second Hand Smoke Exposure: Yes service: Yes Current occupational status: retired Cognitive needs: No Hearing needs: No Vision needs: Yes (reading glasses) Review of Systems Const All systems reviewed & are unremarkable except as noted in HPI and below ENT Denies dizziness Card Denies chest pain, Denies chest pain at rest, Denies chest pain with activity, Denies rapid heart rate, Denies pedal edema, Denies edema, Denies leg edema, Denies lightheadedness, Denies palpitations, Denies dyspnea, Denies dyspnea on exertion and Denies orthopnea Resp Denies cough, Denies dyspnea and Denies dyspnea on exertion GI Denies hematochezia and Denies change in stool character Musc Denies abnormal gait, Denies limited range of motion, Denies muscle cramps, Denies muscle weakness, Denies numbness, Denies radiating pain into limb, Denies stiffness and Denies tingling Neuro Denies abnormal gait, Denies dizziness, Denies numbness and Denies tingling Endo Denies palpitations Physical Exam Vital Signs: Last Vital Signs Pulse 70 09/08/23 13:21 BP 134/72 09/08/23 13:21 BMI result Body Mass Index 29.3 Const General: cooperative, healthy appearing, comfortable and no acute distress Orientation/consciousness: patient oriented x3 Neck Neck: Yes normal visual inspection Resp Effort & Inspection: normal respiratory effort Auscultation: clear to auscultation bilaterally, no crackles, no rales, no rhonchi and no wheezes Cardio Jugular venous distension: no JVD Rate: regular rate Rhythm: regular rhythm Heart sounds: S1 normal heart sound present, S2 normal heart sound present, no murmurs and no rubs Neuro General: patient oriented x3 Extrem General: Yes normal to inspection Psych Appearance: grossly normal Mental Status: mental status grossly normal Speech and movement: Normal speech and movement present Office Procedures EKG Details: Today, read by me, normal sinus rhythm, no acute ST or T-wave abnormalities, rate 70, QTC 447 milliseconds [id number], Complete Assessment & Plan Assessment & Plan (1) Palpitations: Code(s): R00.2 - Palpitations Plan: ER visit October 2021 for noncardiac reason and noted to have episode of SVT which resolved with vagal maneuver. I do not see EKG tracing or rhythm strip from that visit rhythm strip confirming the diagnosis at that time. EKG done that day shows normal sinus rhythm, rate 95, normal PA and QRS intervals, QTC 439 millisecond. He was continued on his usual metoprolol 100 mg daily. On follow-up cardiology visit he reported intermittent heart palpitations. Holter monitor done 02/16/2022 for 1 week shows sinus rhythm with average heart rate 67, heart rate range 40 to 138, frequent SVE, 6.5% of the time, short runs of atrial tach, longest 41 beats with rates 120-130, occasional ventricular ectopy. He was put on metoprolol for heart rate control. Echocardiogram done 02/16/2022 shows normal EF grade 1 diastolic dysfunction and mild left atrial dilatation. He does have multiple cardiac risk factors including hypertension, hyperlipidemia, impaired fasting glucose, age, sedentary. A nuclear stress test was done on 10/13/2022 showing normal myocardial perfusion imaging. Initially following his SVT diagnosis he admitted to drinking 8 mugs of caffeinated coffee per day and he has since changed to decaf. Today he reports no recent heart palpitations. He is very pleased with how he is feeling. EKG done today showing normal sinus rhythm with no acute ST or T-wave abnormalities, rate 70. Will continue on current metoprolol dose. Instructed to call with any current prolonged heart palpitations.. If needed is to metoprolol dose can be further increased to 150 mg daily. Will arrange for cardiology follow-up in 1 yr, sooner if needed. (2) SVT (supraventricular tachycardia): Code(s): I47.1 - Supraventricular tachycardia Plan: As above (3) Benign essential hypertension: Code(s): I10 - Essential (primary) hypertension Plan: Well controlled at this time. No med changes made. Labs from 03/22/2023 showed potassium 4.0 and creatinine 0.85. Continue lisinopril and metoprolol. Plan Time spent on chart review, documentation, interview and assessment Coding Level of Care Code Est Pt Level 3 (08478) Diagnoses Palpitations R00.2 SVT (supraventricular tachycardia) I47.1 Benign essential hypertension I10 CPT Codes EKG - CPT: 85680-[id number], Complete ([id number]) Time Spent (min) 22
== END 2023-09-08 13:50 | disposition home or self-care (01) ==
PROVIDERS: PCP Internal Medicine; Visit Provider Nurse Practitioner Family
DX: R00.2 Palpitations (principal); I47.10 Supraventricular tachycardia, unspecified; I10 Essential (primary) hypertension
CPT/HCPCS: 93010; 99213

== ENCOUNTER → 2023-09-08 13:06 | Outpatient (BNVA) | payer BC, SELFPAY | PROVIDERS: PCP Internal Medicine; Visit Provider Nurse Practitioner Family | DX: R00.2 Palpitations (principal); I47.10 Supraventricular tachycardia, unspecified; I10 Essential (primary) hypertension; Z79.899 Other long term (current) drug therapy | CPT/HCPCS: 93005 ==

== ENCOUNTER 2023-09-21 06:07 | Outpatient (REF) | payer BC, SELFPAY ==
--- NOTE | ~2023-09-21 | XR_ITS ---
EXAMINATION: XR CHEST CLINICAL INFORMATION: Atelectasis COMPARISON: February 02, 2023 TECHNIQUE: 2 views of the chest were obtained. FINDINGS: Lung volumes are low. There is no gross pneumothorax. Heart size is normal. No pleural effusion. No new focal consolidation to suggest pneumonia. Degenerative changes in the thoracic spine. No pleural effusion. Redemonstration mild kyphosis with mild anterior wedge compression of a midthoracic vertebral body. XR/XR chest 2V IMPRESSION: No evidence of pneumonia.
[2023-09-21 10:25] LABS: MANUAL DIFF FLAG NO
[2023-09-21 10:31] LABS: Basophils Absolute Auto 0.1 X10*3/uL (0.0-0.2); Basophils Percent Auto 0.8 % (0-2); Eosinophils Absolute Auto 0.1 X10*3/uL (0.0-0.4); Eosinophils Percent Auto 1.2 % (0-4); Hematocrit 42.5 % (42.0-52.0); Hemoglobin 14.2 g/dl (14.0-18.0); Imm Gran Abs Auto 0.03 X10*3/uL (0.00-0.03); Imm Gran Pct Auto 0.3 % (0.0-0.4); Lymphocytes Absolute Auto 2.7 X10*3/uL (1.2-4.9); Lymphocytes Percent Auto 30.4 % (20-40); Mean Corpuscular HGB Conc 33.4 g/dl (31.0-36.0); Mean Corpuscular Hemoglobin 30.5 pg (27.0-33.0); Mean Corpuscular Volume 91.2 fL (80.0-98.0); Monocytes Absolute Auto 0.7 X10*3/uL (0.1-1.2); Monocytes Percent Auto 7.8 % (2-11); Neutrophils Absolute Auto 5.2 x10*3/uL (2.0-8.3); Neutrophils Percent Auto 59.5 % (45-73); Platelet Count 222 X10*3/uL (160-400); Red Blood Count 4.66 X10*6/uL (4.60-5.80); Red Cell Distribution Width 13.4 % (11.0-16.0); White Blood Count 8.8 X10*3/uL (4.8-10.8)
[2023-09-21 10:35] LABS: Appearance Urine Clear; Color Urine Yellow; Glucose Urine UA Negative (Negative); Leukocyte Esterase Urine Negative (Negative); Nitrite Urine Negative (Negative); PH 5.5 (5.0-9.0); Urine Blood Negative (Negative); Urine Ketones Negative (Negative); Urine Protein Negative (Neg-Trace)
[2023-09-21 11:16] LABS: Alanine Aminotransferase 31 U/L (0-40); Albumin Level 4.3 g/dL (3.5-5.0); Alkaline Phosphatase 75 U/L (39-117); Anion Gap 12 (12-20); Aspartate Amino Transferase 23 U/L (5-37); Bilirubin Total 0.8 mg/dL (0.0-1.0); Blood Urea Nitrogen 16 mg/dL (9-16); Calcium 9.3 mg/dL (8.4-10.2); Carbon Dioxide 25 mmol/L (22-29); Chloride 108 mmol/L (96-108); Cholesterol 144 mg/dL (<200); Estimated Glomerular Filt Rate > 60; Glucose Fasting 105 mg/dL (60-99); HDL Cholesterol 41 mg/dL (>40); LDL Cholesterol Calculated 61 mg/dL (<100); Potassium 3.9 mmol/L (3.3-5.1); Sodium 141 mmol/L (135-145); Total Protein 6.9 g/dL (6.5-8.0); Triglycerides 212 mg/dL (<150)
[2023-09-21 11:17] LABS: TSH reflex Free T4 2.17 uIU/mL (0.32-4.0); Vitamin D 25-OH Total 47.3 ng/mL (>30)
[2023-09-21 11:23] LABS: Estimated Average Glucose 111 mg/dL; Hemoglobin A1c % 5.5 % (<6.0)
[2023-09-21 11:26] LABS: Prostate Specific Antigen < 0.10 ng/mL (<0.05-4.0)
== END 2023-09-21 06:08 | disposition home or self-care (01) ==
LOC: HO.HMGCLDS 06:07
PROVIDERS: PCP Internal Medicine; Referring Provider Urology; Visit Provider Internal Medicine
DX: J98.11 Atelectasis (principal); E78.00 Pure hypercholesterolemia, unspecified; R30.0 Dysuria; E55.9 Vitamin D deficiency, unspecified; I10 Essential (primary) hypertension; R73.01 Impaired fasting glucose; C61 Malignant neoplasm of prostate; Z12.5 Encounter for screening for malignant neoplasm of prostate
CPT/HCPCS: 36415; 71046; 80053; 80061; 81003; 82306; 83036; 84153; 84443; 85025

== ENCOUNTER 2023-09-28 09:14 | Outpatient (AMB) | payer BC, SELFPAY ==
--- NOTE | 2023-09-28 09:28 | A.OFFVIS_ITS ---
Intake Intake Visit Reasons: 1Y PSA/PVR(set)Confirmed Intake Note: Patient presents today for a follow up on: PSA/PVR Meds- Tamsulosin Allergies to Antibiotic- No Known Allergies Blood Thinner- None Post Void Residual: 21ml Roll Table Operator Required: No Accompanied by: Self / Same As Patient Allergies No Known Allergies Allergy (Verified 09/28/23 09:40) Medication List - Last Reconciled 09/28/23 by eLx Subramanian MD atorvastatin 40 mg PO DAILY cholecalciferol (vitamin D3) 25 mcg PO DAILY lisinopril 20 mg PO DAILY metoprolol succinate ER 100 mg PO DAILY multivitamin (Multiple Vitamins tablet) 1 tab PO DAILY omega 9-wku-qij-fish oil 100-160-1,000 mg (Fish Oil) 1 cap PO .once a day omeprazole 40 mg PO DAILY 90 days tamsulosin 0.4 mg PO DAILY HPI HPI Comments History of Present Illness Details David is a very pleasant male. He is a patient of Dr. South. He is seen for the following urologic conditions - prostate cancer Discussed main issue with long-term radiation is weakness of stream Currently happy with current urinary performance Twelve month follow-up Prostate cancer radiation therapy 2004 Prostate cancer Initial therapy radiation with short-term hormones 2004 Associated symptoms nocturia with mild urgency Managed with [facility] 09/06 0.12, 09/07 0.11, 09/08 0.1, 10/10 <0.1, 10/11 <0.1 Review in 12 months [facility] Medical History Cataract (lens) fragments in eye following cataract surgery, right eye Vitamin D deficiency Overweight (BMI 25.0-29.9) History of prostate cancer Impaired fasting glucose Benign prostatic hyperplasia with urinary frequency GERD (gastroesophageal reflux disease) Pure hypercholesterolemia Benign essential hypertension Surgical History History of cataract surgery History of skin graft Family History Father Medical history unknown Mother CVD (cardiovascular disease) Social History Housing: House Are you a primary caregivers homecare to a significant other at home: No Do you presently have visiting nurse or other home services: No Alcohol intake: never Patient Tobacco Use Status: Never used Tobacco e-Cigarette/Vaping Use: Never Used Second Hand Smoke Exposure: Yes service: Yes Current occupational status: retired Cognitive needs: No Hearing needs: No Vision needs: Yes (reading glasses) Review of Systems Const Denies chills and Denies fever(s) Card Reports no additional complaints and Denies syncope Resp Denies cough GI Denies abdominal pain and Denies heartburn Reports as per HPI and Denies change in libido Neuro Denies syncope Psych Denies change in libido Endo Denies change in libido Physical Exam Const General: cooperative, healthy appearing, comfortable and no acute distress Orientation/consciousness: patient oriented x3 HEENT Face and sinus: Yes normal facial exam Mouth: moist mucous membranes Neck Neck: Yes normal visual inspection, Yes full ROM and Yes trachea midline Chest Chest palpation & inspection: normal inspection of the chest Resp Effort & Inspection: normal respiratory effort, able to speak in complete sentences and no respiratory distress GI Inspection: Yes normal to inspection Back/Spine/Pelvis Cervical Spine: normal cervical lordosis Thoracic/Lumbar Spine: thoracic and lumbar spine normal to inspection Skin General skin exam: no rashes or lesions noted Neuro General: patient oriented x3, gait normal, tone normal and moves all extremities Extrem General: Yes normal to inspection and Yes capillary refill normal Office Procedures Post Void Residual Post Residual Void Post Void Residual (PVR): 21 [id number] Void Residual by ultrasound Assessment & Plan Assessment & Plan (1) Prostate cancer: Code(s): C61 - Malignant neoplasm of prostate Plan Twelve month follow-up PSA Orders: Orders AMB Post Void Residual by ultrasound Today R33.9 - Retention of urine, unspecified Prostate Specific Antigen 364 Days C61 - Malignant neoplasm of prostate Patient Instructions: Imaging studies, laboratory and physical exam results were discussed and reviewed in detail. No major barriers to patient understanding were identified. An opportunity to ask questions regarding the treatment plan was provided. All questions were answered. The patient expressed understanding and agreement with the above treatment plan. The patient is aware they should contact our office by phone for worsening of their current condition or the appearance of new urologic symptoms. Compliance is encouraged with any medications and followup testing that is ordered. It is a privilege to participate in the urologic care of your patient. If you have any questions or concerns regarding treatment for the above conditions, or other urologic issues, please do not hesitate to contact me. The office telephone contact is [phone]. This note is constructed using voice recognition software. While every effort has been made to ensure accuracy mine safety director errors may have been included. Yours sincerely, Dr Lex Subramanian MD, [facility] - Urology Providers of Expert, Compassionate Care for the Genitourinary System Coding Level of Care Code Est Pt Level 4 (49032) Diagnoses Prostate cancer C61 CPT Codes Post Residual Void - PVR CPT Code: 25770-Nmjs Void Residual by ultrasound ([id number])
== END 2023-09-28 09:53 | disposition home or self-care (01) ==
PROVIDERS: PCP Internal Medicine; Visit Provider Urology
DX: C61 Malignant neoplasm of prostate (principal)
CPT/HCPCS: 99213

== ENCOUNTER → 2023-09-28 09:14 | Outpatient (BNVA) | payer BC, SELFPAY | PROVIDERS: Visit Provider Urology | DX: C61 Malignant neoplasm of prostate (principal); R33.9 Retention of urine, unspecified | CPT/HCPCS: 51798 ==

== ENCOUNTER 2023-09-30 10:06 | Outpatient (AMB) | payer BC, SELFPAY ==
[2023-09-30 10:28] VITALS: BP 142/70; PULSE 92; O2SAT 98; BMI 28.8
--- NOTE | 2023-09-30 10:28 | A.OFFPC_ITS ---
Vital Signs 09/30/23 10:28 Height 5 ft 8 in Weight 189 lb 2 oz BMI 28.8 BP 142/70 H Blood Pressure Location Lt brachial Position Sitting Pulse 92 Pulse Source Pulse Oximeter Pulse Oximetry (%) 98 Oxygen Delivery Method Room Air Intake Visit Reasons: hyperlipidemia, HTN, IFG Integration Technician Required: No Accompanied by: Self / Same As Patient Allergies No Known Allergies Allergy (Verified 09/30/23 11:17) Medication List - Last Reconciled 09/30/23 by Vlad South MD atorvastatin 40 mg PO DAILY cholecalciferol (vitamin D3) 25 mcg PO DAILY lisinopril 20 mg PO DAILY metoprolol succinate ER 100 mg PO DAILY multivitamin (Multiple Vitamins tablet) 1 tab PO DAILY omega 4-isd-gny-fish oil 100-160-1,000 mg (Fish Oil) 1 cap PO .once a day omeprazole 40 mg PO DAILY 90 days tamsulosin 0.4 mg PO DAILY Tobacco use date assessed: 09/30/23 Fall risk assessment: No Falls in past year Last assessed Fall Risk: 09/30/23 Dental Screening Dental Screen Date: 03/31/23 HPI hyperlipidemia, HTN, IFG HPI Details Patient comes in today for his follow-up visit States that he feels okay He denies any headaches or dizziness Denies any chest pains, no shortness of breath No nausea/vomiting, no abdominal pain No change in bowel habits noted Had his follow-up labs done last week - to discuss his results [facility] Medical History Cataract (lens) fragments in eye following cataract surgery, right eye Vitamin D deficiency Overweight (BMI 25.0-29.9) History of prostate cancer Impaired fasting glucose Benign prostatic hyperplasia with urinary frequency GERD (gastroesophageal reflux disease) Pure hypercholesterolemia Benign essential hypertension Surgical History History of cataract surgery History of skin graft Family History Father Medical history unknown Mother CVD (cardiovascular disease) Social History Housing: House Are you a primary home care liaison to a significant other at home: No Do you presently have visiting nurse or other home services: No Alcohol intake: never Patient Tobacco Use Status: Never used Tobacco e-Cigarette/Vaping Use: Never Used Second Hand Smoke Exposure: Yes service: Yes Current occupational status: retired Cognitive needs: No Hearing needs: No Vision needs: Yes (reading glasses) Questionnaire PHQ-9 Over the last 2 weeks, how often have you been bothered by any of the following problems? 1. Little interest or pleasure in doing things: not at all 2. Feeling down, depressed, or hopeless: not at all 3. Trouble falling or staying asleep, or sleeping too much: not at all 4. Feeling tired or having little energy: not at all 5. Poor appetite or overeating: not at all 6. Feeling bad about yourself - or that you are a failure or have let yourself or your family down: not at all 7. Trouble concentrating on things, such as reading the newspaper or watching television: not at all 8. Moving or speaking so slowly that other people could have noticed. Or the opposite - being so fidgety or restless that you have been moving around a lot more than usual: not at all 9. Thoughts that you would be better off or of hurting yourself in some way: not at all Total score: 0 Depression Screening Interpretation: Negative Depression Screening Done: Yes 99449 - PHQ-9 Billing: Yes Source: Developed by Drs. Savage Oseguera, Jennifer Ga, Jhoan Maciel and colleagues, with an educational yuliana from [employer]. Thrive Questionnaire Date Thrive assessed: 09/30/23 I am a: Patient What is your living situation today?: I have a steady place to live Within the past 12 months, did the food you bought not last and you didn't have the money to get more?: Never true Within the past 12 months, did you worry whether your food would run out before you got money to buy more?: Never true Do you have trouble paying for medicines?: No Do you have trouble getting transportation to medical appointments?: No Do you have trouble paying your heating and electricity bill?: No Do you have trouble taking care of your child, family member or friend?: No Do you have trouble with day-to-day activities such as bathing, preparing meals, shopping, managing finances, etc.?: No Are you currently unemployed and looking for a job?: No Are you interested in more education?: No Please select the resources that you would like help with: None Currently or been in a relationship where the following occur: no concerns reported THRIVE Score: 0 AUDIT C Alcohol Use Questionnaire (AUDIT-C) 1. How often do you have a drink containing alcohol?: Never 3. How often do you have six or more drinks on one occasion?: Never Total Score: 0 Score Reviewed/Action Taken: Yes CLAUDETTE-7 AMB Questionnaire CLAUDETTE-7 Date CLAUDETTE - 7 assessed: 09/30/23 Feeling nervous, anxious, or on edge: 0 = Not at all Not being able to stop or control worryin = Not at all Worrying too much about different things: 0 = Not at all Trouble relaxin = Not at all Being so restless that it is hard to sit still: 0 = Not at all Becoming easily annoyed or irritable: 0 = Not at all Feeling afraid as if something awful might happen: 0 = Not at all Total CLAUDETTE-7 score (0-4 normal; 5-9 mild; 10-14 moderate; 15-21 severe): 0 Source: Developed by Drs. Savage Oseguera, Jennifer Ga, Jhoan Maciel and colleagues, with an educational yuliana from [employer]. CLAUDETTE-7 Assessment Billing CLAUDETTE-7 Assessment Tool: CLAUDETTE-7 Assessment 60740 Review of Systems Const Denies chills, Denies fatigue, Denies fever(s) and Denies headache(s) ENT Denies dysphagia, Denies dizziness, Denies otalgia, Denies headache(s), Denies neck pain, Denies odynophagia and Denies sore throat Card Denies chest pain, Denies palpitations and Denies dyspnea Resp Denies cough and Denies dyspnea GI Denies abdominal pain, Denies constipation, Denies dysphagia, Denies heartburn, Denies diarrhea, Denies nausea, Denies odynophagia and Denies vomiting Denies dysuria and Denies nocturia Musc Denies neck pain Neuro Denies dizziness and Denies headache(s) Endo Denies fatigue and Denies palpitations Physical exam (Primary Care) Vital Signs: Last Vital Signs Pulse 92 09/30/23 10:28 BP 142/70 H 09/30/23 10:28 Pulse Ox 98 09/30/23 10:28 Oxygen Delivery Method Room Air 09/30/23 10:28 BMI result Body Mass Index 28.8 Tobacco/Smoking Status: Tobacco use Status Tobacco use date assessed 09/30/23 09/30/23 10:32 Patient Tobacco Use Status Never used Tobacco 09/30/23 10:32 e-Cigarette/Vaping Use Never Used 09/30/23 10:32 PHQ-9: PHQ-9 Score PHQ-9: Total score 0 09/30/23 11:19 Depression Screening Interpretation: Negative Thrive Assessment: Date of Thrive Assessment Date Thrive assessed 09/30/23 09/30/23 10:32 Currently or been in a relationship where the following occur: no concerns reported Const General: no acute distress and alert HENMT Ears: TM's normal bilaterally and EAC's normal Throat: Yes posterior oropharynx normal and Yes tonsils normal (no TP congestion) Neck Neck: Yes no lymphadenopathy and Yes supple Resp Auscultation: clear to auscultation bilaterally, no rales and no wheezes Cardio Rate: regular rate Rhythm: regular rhythm Heart sounds: no murmurs GI Palpation (GI): Soft to palpation, nontender and No hepatosplenomegaly present Skin General skin exam: no rashes or lesions noted Extrem General: Yes no clubbing, cyanosis or edema Results Reviewed Results Reviewed: Laboratory Tests 09/21/23 06:26 WBC 8.8 Hgb 14.2 Hct 42.5 Plt Count 222 Sodium 141 Potassium 3.9 Creatinine 0.88 Estimated GFR > 60 Fasting Glucose 105 H Hemoglobin A1c % 5.5 Calcium 9.3 AST 23 ALT 31 Triglycerides 212 H Cholesterol 144 LDL Cholesterol, Calc 61 HDL Cholesterol 41 Prostate Specific Ag < 0.10 25-OH Vitamin D Total 47.3 TSH 2.17 Ur Specific [place] 1.020 Urine Protein Negative Urine Glucose (UA) Negative Urine Blood Negative Urine Nitrite Negative Ur Leukocyte Esterase Negative Assessment and Plan Assessment & Plan (1) Benign essential hypertension: Code(s): I10 - Essential (primary) hypertension Plan: Reinforced low sodium diet - goal is systolic BP of at least 140 to 150 mm or less Continue Lisinopril 20 mg QD and Metoprolol ER 100 mg QD (2) Pure hypercholesterolemia: Code(s): E78.00 - Pure hypercholesterolemia, unspecified Plan: Results of his labs done last week reviewed and discussed with patient Reinforced low cholesterol diet Continue Atorvastatin 40 mg QD Will recheck his labs and fasting lipids in 6 months for follow up (3) SVT (supraventricular tachycardia): Code(s): I47.1 - Supraventricular tachycardia Plan: Patient reports that his symptoms now occur rarely since he cut back on his daily coffee intake at the recommendation of cardiology (was previously drinking up to 8 mugs of coffee a day) Work ups done, including echocardiogram which came out normal except for grade 1 diastolic dysfunction and mild LA dilatation; EF is normal; and Holter monitor revealed frequent SVTs with baseline of sinus rhythm with average HR of 67 bpm EKG done at his cardiology follow up last year revealed (+) long QT He eventually underwent cardiac stress testing and also had a myocardial perfusion scan done back in September 2022 for further evaluation His EKG stress testing and nuclear stress testing both came back negative for ischemia Follow up with cardiology as scheduled (4) Impaired fasting glucose: Code(s): R73.01 - Impaired fasting glucose Plan: HgbA1c remains normal at 5.5% when checked last week Reinforced low calorie diet/exercise as tolerated (5) GERD (gastroesophageal reflux disease): Code(s): K21.9 - Gastro-esophageal reflux disease without esophagitis Qualifiers: Esophagitis presence: without esophagitis Qualified Code(s): K21.9 - Gastro-esophageal reflux disease without esophagitis Plan: Dietary restrictions reinforced Continue Omeprazole 40 mg QD UGI series done in October 2017 showed (+) significant reflux up to the level of the upper thorax Consider GI referral for EGD if symptoms progress or persist despite Rx (6) Vitamin D deficiency: Code(s): E55.9 - Vitamin D deficiency, unspecified Plan: Continue OTC Vitamin D3 1000 units QD (7) Benign prostatic hyperplasia with urinary frequency: Code(s): N40.1 - Benign prostatic hyperplasia with lower urinary tract symptoms; R35.0 - Frequency of micturition Plan: Continue on Tamsulosin 0.4 mg QD Follow-up with urology as scheduled (8) History of prostate cancer: Code(s): Z85.46 - Personal history of malignant neoplasm of prostate Plan: S/P Tx - radiation with short-term hormones 2004 PSA level done last year came back normal / low Follow up with urology as scheduled for continuing surveillance (9) Overweight (BMI 25.0-29.9): Code(s): E66.3 - Overweight Plan: Reinforced diet/exercise as tolerated/lose weight Plan Follow up in 6 months Orders: Orders Comprehensive [place]. Panel Fast 6 Months E78.00 - Pure hypercholesterolemia, unspecified UA CC w/rflx Micro + Cult 6 Months R30.0 - Dysuria Vitamin D 25-OH Total 6 Months E55.9 - Vitamin D deficiency, unspecified Complete Blood Count Auto Diff 6 Months D64.9 - Anemia, unspecified Lipid Panel 6 Months E78.00 - Pure hypercholesterolemia, unspecified TSH reflex Free T4 6 Months E78.00 - Pure hypercholesterolemia, unspecified Coding Level of Care Code Est Pt Level 4 (66695) Diagnoses Benign essential hypertension I10 Pure hypercholesterolemia E78.00 SVT (supraventricular tachycardia) I47.1 Impaired fasting glucose R73.01 Gastroesophageal reflux disease without esophagitis K21.9 Esophagitis presence: without esophagitis Vitamin D deficiency E55.9 Benign prostatic hyperplasia with urinary frequency N40.1; R35.0 History of prostate cancer Z85.46 Overweight (BMI 25.0-29.9) E66.3 Additional Codes CLAUDETTE-7 Assessment Billing - CLAUDETTE-7 Assessment Tool: CLAUDETTE-7 Assessment [id number] ([id number])
== END 2023-09-30 11:23 | disposition home or self-care (01) ==
PROVIDERS: PCP Internal Medicine; Visit Provider Internal Medicine
DX: I10 Essential (primary) hypertension (principal); E78.00 Pure hypercholesterolemia, unspecified; I47.10 Supraventricular tachycardia, unspecified; R73.01 Impaired fasting glucose; K21.9 Gastro-esophageal reflux disease without esophagitis; E55.9 Vitamin D deficiency, unspecified; N40.1 Benign prostatic hyperplasia with lower urinary tract symptoms; R35.0 Frequency of micturition; Z85.46 Personal history of malignant neoplasm of prostate; E66.3 Overweight
CPT/HCPCS: 99214

== ENCOUNTER 2024-03-22 07:09 | Outpatient (REF) | payer BC, SELFPAY ==
[2024-03-22 09:56] LABS: MANUAL DIFF FLAG NO
[2024-03-22 09:59] LABS: Basophils Absolute Auto 0.1 X10*3/uL (0.0-0.2); Basophils Percent Auto 0.9 % (0-2); Eosinophils Absolute Auto 0.1 X10*3/uL (0.0-0.4); Eosinophils Percent Auto 0.8 % (0-4); Hematocrit 44.9 % (42.0-52.0); Hemoglobin 14.6 g/dl (14.0-18.0); Imm Gran Abs Auto 0.04 X10*3/uL (0.00-0.03); Imm Gran Pct Auto 0.4 % (0.0-0.4); Lymphocytes Absolute Auto 2.4 X10*3/uL (1.2-4.9); Lymphocytes Percent Auto 26.3 % (20-40); Mean Corpuscular HGB Conc 32.5 g/dl (31.0-36.0); Mean Corpuscular Hemoglobin 29.9 pg (27.0-33.0); Mean Corpuscular Volume 91.8 fL (80.0-98.0); Mean Platelet Volume 10.7 fL (9.4-12.4); Monocytes Absolute Auto 0.8 X10*3/uL (0.1-1.2); Monocytes Percent Auto 8.6 % (2-11); Neutrophils Absolute Auto 5.7 x10*3/uL (2.0-8.3); Platelet Count 243 X10*3/uL (160-400); Red Blood Count 4.89 X10*6/uL (4.60-5.80); Red Cell Distribution Width 13.3 % (11.0-16.0); White Blood Count 9.1 X10*3/uL (4.8-10.8)
[2024-03-22 10:04] LABS: Appearance Urine Clear; Color Urine Yellow; Glucose Urine UA Negative (Negative); Leukocyte Esterase Urine Negative (Negative); Nitrite Urine Negative (Negative); Urine Blood Negative (Negative); Urine Ketones Negative (Negative); Urine Protein Negative (Neg-Trace)
[2024-03-22 10:22] LABS: Alanine Aminotransferase 31 U/L (0-40); Albumin Level 4.5 g/dL (3.5-5.0); Alkaline Phosphatase 83 U/L (39-117); Anion Gap 13 (12-20); Aspartate Amino Transferase 22 U/L (5-37); Blood Urea Nitrogen 14 mg/dL (9-16); Calcium 9.9 mg/dL (8.4-10.2); Carbon Dioxide 24 mmol/L (22-29); Chloride 106 mmol/L (96-108); Cholesterol 153 mg/dL (<200); Estimated Glomerular Filt Rate > 60; Glucose Fasting 108 mg/dL (60-99); HDL Cholesterol 42 mg/dL (>40); LDL Cholesterol Calculated 76 mg/dL (<100); Potassium 3.9 mmol/L (3.3-5.1); Sodium 139 mmol/L (135-145); Total Protein 7.4 g/dL (6.5-8.0); Triglycerides 179 mg/dL (<150)
[2024-03-22 10:30] LABS: TSH reflex Free T4 2.09 uIU/mL (0.32-4.0); Vitamin D 25-OH Total 47.5 ng/mL (>30)
== END 2024-03-22 07:10 | disposition home or self-care (01) ==
LOC: HO.HMGCLDS 07:09
PROVIDERS: PCP Internal Medicine; Visit Provider Internal Medicine
DX: E78.00 Pure hypercholesterolemia, unspecified (principal); D64.9 Anemia, unspecified; R30.0 Dysuria; E55.9 Vitamin D deficiency, unspecified
CPT/HCPCS: 36415; 80053; 80061; 81003; 82306; 84443; 85025

== ENCOUNTER 2024-03-30 10:10 | Outpatient (AMB) | payer BC, SELFPAY ==
[2024-03-30 10:27] VITALS: BP 124/78; PULSE 71; O2SAT 96; BMI 28.5
--- NOTE | 2024-03-30 10:27 | MHC.PC.OV ---
Vital Signs 03/30/24 10:27 Height 5 ft 8 in Weight 187 lb 6 oz BMI 28.5 BP 124/78 Blood Pressure Location Lt brachial Position Sitting Pulse 71 Pulse Source Pulse Oximeter Pulse Oximetry (%) 96 Oxygen Delivery Method Room Air Intake Visit Reasons: HTN, hyperlipidemia, GERD Install And Repair Technician Required: No Accompanied by: Self / Same As Patient Allergies No Known Allergies Allergy (Verified 03/30/24 11:21) Medication List - Last Reconciled 03/30/24 by Vlad South MD atorvastatin 40 mg PO DAILY cholecalciferol (vitamin D3) 25 mcg PO DAILY lisinopril 20 mg PO DAILY metoprolol succinate ER 100 mg PO DAILY multivitamin (Multiple Vitamins tablet) 1 tab PO DAILY omega 4-kaj-juh-fish oil 100-160-1,000 mg (Fish Oil) 1 cap PO .once a day omeprazole 40 mg PO DAILY 90 days tamsulosin 0.4 mg PO DAILY Tobacco use date assessed: 03/30/24 Fall risk assessment: No Falls in past year Last assessed Fall Risk: 03/30/24 Dental Screening Dental Screen Date: 03/30/24 Did you have a dental visit in the last 12 months?: Yes Did you have a dental problem in the last 6 months where you did not have access to dental care?: No Was dental information given to patient?: Patient has dentist HPI HTN, hyperlipidemia, GERD HPI Details Patient comes in today for his follow up visit States that he has been experiencing on and off left-sided chest pains for the past couple of days now - notes that the pain feels more like a heartburn sensation (5/10 pain scale) States that he has tried taking some OTC meds with no relief Relates also (+) recurrent coughing and states that he has been coughing up some yellowish phlegm at times He denies any SOB He denies any fever, headaches or dizziness No nausea/vomiting, no abdominal pain No change in bowel habits noted He had his follow-up labs done last week - to discuss his results [facility] Medical History Cataract (lens) fragments in eye following cataract surgery, right eye Vitamin D deficiency Overweight (BMI 25.0-29.9) History of prostate cancer Impaired fasting glucose Benign prostatic hyperplasia with urinary frequency GERD (gastroesophageal reflux disease) Pure hypercholesterolemia Benign essential hypertension Surgical History History of cataract surgery History of skin graft Family History Father Medical history unknown Mother CVD (cardiovascular disease) Social History Housing: House Are you a primary child care cook to a significant other at home: No Do you presently have visiting nurse or other home services: No Alcohol intake: never Patient Tobacco Use Status: Never used Tobacco e-Cigarette/Vaping Use: Never Used Second Hand Smoke Exposure: Yes service: Yes Current occupational status: retired Cognitive needs: No Hearing needs: No Vision needs: Yes (reading glasses) Questionnaire PHQ-9 Over the last 2 weeks, how often have you been bothered by any of the following problems? 1. Little interest or pleasure in doing things: not at all 2. Feeling down, depressed, or hopeless: not at all 3. Trouble falling or staying asleep, or sleeping too much: not at all 4. Feeling tired or having little energy: not at all 5. Poor appetite or overeating: not at all 6. Feeling bad about yourself - or that you are a failure or have let yourself or your family down: not at all 7. Trouble concentrating on things, such as reading the newspaper or watching television: not at all 8. Moving or speaking so slowly that other people could have noticed. Or the opposite - being so fidgety or restless that you have been moving around a lot more than usual: not at all 9. Thoughts that you would be better off or of hurting yourself in some way: not at all Total score: 0 Depression Screening Interpretation: Negative Depression Screening Done: Yes 26142 - PHQ-9 Billing: Yes Source: Developed by Drs. Savage Oseguera, Jennifer Ga, Jhoan Maciel and colleagues, with an educational yuliana from [employer]. Thrive Questionnaire Date Thrive assessed: 03/30/24 I am a: Patient What is your living situation today?: I have a steady place to live Within the past 12 months, did the food you bought not last and you didn't have the money to get more?: Never true Within the past 12 months, did you worry whether your food would run out before you got money to buy more?: Never true Do you have trouble paying for medicines?: No Do you have trouble getting transportation to medical appointments?: No Do you have trouble paying your heating and electricity bill?: No Do you have trouble taking care of your child, family member or friend?: No Do you have trouble with day-to-day activities such as bathing, preparing meals, shopping, managing finances, etc.?: No Are you currently unemployed and looking for a job?: No Are you interested in more education?: No Please select the resources that you would like help with: None Currently or been in a relationship where the following occur: No concerns reported THRIVE Score: 0 AUDIT C Alcohol Use Questionnaire (AUDIT-C) 1. How often do you have a drink containing alcohol?: Never 3. How often do you have six or more drinks on one occasion?: Never Total Score: 0 Score Reviewed/Action Taken: Yes CLAUDETTE-7 AMB Questionnaire CLAUDETTE-7 Date CLAUDETTE - 7 assessed: 03/30/24 Feeling nervous, anxious, or on edge: 0 = Not at all Not being able to stop or control worryin = Not at all Worrying too much about different things: 0 = Not at all Trouble relaxin = Not at all Being so restless that it is hard to sit still: 0 = Not at all Becoming easily annoyed or irritable: 0 = Not at all Feeling afraid as if something awful might happen: 0 = Not at all Total CLAUDETTE-7 score (0-4 normal; 5-9 mild; 10-14 moderate; 15-21 severe): 0 Source: Developed by Drs. Savage Oseguera, Jennifer Ga, Jhoan Maciel and colleagues, with an educational yuliana from [employer]. CLAUDETTE-7 Assessment Billing CLAUDETTE-7 Assessment Tool: CLAUDETTE-7 Assessment 89269 Review of Systems Const Denies chills, Denies fatigue, Denies fever(s) and Denies headache(s) ENT Denies dysphagia, Denies dizziness, Denies otalgia, Denies headache(s), Denies neck pain, Denies odynophagia and Denies sore throat Card Reports chest pain (on and off, over the left side - more of a heartburn sensation (see HPI)), Denies palpitations and Denies dyspnea Resp Denies chest congestion, Reports cough (on and off - coughs up some yellowish phlegm at times), Denies dyspnea and Denies wheezing GI Denies abdominal pain, Denies constipation, Denies dysphagia, Denies heartburn, Denies diarrhea, Denies nausea, Denies odynophagia and Denies vomiting Denies dysuria, Denies nocturia and Denies urinary frequency Musc Denies arthralgias and Denies neck pain Skin/Breast Denies rash Neuro Denies dizziness and Denies headache(s) Endo Denies fatigue and Denies palpitations Aller/Immun Denies wheezing Physical exam (Primary Care) Vital Signs: Last Vital Signs Pulse 71 03/30/24 10:27 BP 124/78 03/30/24 10:27 Pulse Ox 96 03/30/24 10:27 Oxygen Delivery Method Room Air 03/30/24 10:27 BMI result Body Mass Index 28.5 Tobacco/Smoking Status: Tobacco use Status Tobacco use date assessed 03/30/24 03/30/24 10:28 Patient Tobacco Use Status Never used Tobacco 03/30/24 10:28 e-Cigarette/Vaping Use Never Used 03/30/24 10:28 PHQ-9: PHQ-9 Score PHQ-9: Total score 0 03/30/24 11:21 Depression Screening Interpretation: Negative Thrive Assessment: Date of Thrive Assessment Date Thrive assessed 03/30/24 03/30/24 10:33 Currently or been in a relationship where the following occur: No concerns reported Const General: no acute distress and alert HENMT Ears: TM's normal bilaterally and EAC's normal Throat: Yes posterior oropharynx normal and Yes tonsils normal (no TP congestion) Neck Neck: Yes no lymphadenopathy and Yes supple Thyroid: Thyroid normal Resp Auscultation: clear to auscultation bilaterally, no rales and no wheezes Cardio Rate: regular rate Rhythm: regular rhythm Heart sounds: no murmurs GI Palpation (GI): Soft to palpation and nontender Auscultation: normal bowel sounds General: Yes no CVA tenderness Back/Spine/Pelvis Back: no CVA tenderness Thoracic/Lumbar Spine: No lumbar spinal tenderness Skin Rashes: no rashes Extrem General: Yes no clubbing, cyanosis or edema Results Reviewed Results Reviewed: Laboratory Tests 09/21/23 03/22/24 03/22/24 06:26 07:18 07:25 WBC 9.1 Hgb 14.6 Hct 44.9 Plt Count 243 Sodium 139 Potassium 3.9 Creatinine 0.85 Estimated GFR > 60 Fasting Glucose 108 H Hemoglobin A1c % 5.5 Calcium 9.9 D AST 22 ALT 31 Triglycerides 179 H Cholesterol 153 LDL Cholesterol, Calc 76 HDL Cholesterol 42 25-OH Vitamin D Total 47.5 TSH 2.09 Ur Specific [place] 1.020 Urine Protein Negative Urine Glucose (UA) Negative Urine Blood Negative Urine Nitrite Negative Ur Leukocyte Esterase Negative Coding Level of Care Code Est Pt Level 4 (68188) Complex EM visit Add On G2211 Diagnoses Benign essential hypertension I10 Pure hypercholesterolemia E78.00 SVT (supraventricular tachycardia) I47.1 Left-sided chest pain R07.9 Cough, unspecified type R05.9 Cough type: unspecified Impaired fasting glucose R73.01 Gastroesophageal reflux disease without esophagitis K21.9 Esophagitis presence: without esophagitis Vitamin D deficiency E55.9 Benign prostatic hyperplasia with urinary frequency N40.1; R35.0 History of prostate cancer Z85.46 Overweight (BMI 25.0-29.9) E66.3 Additional Codes CLAUDETTE-7 Assessment Billing - CLAUDETTE-7 Assessment Tool: CLAUDETTE-7 Assessment 03586 ([id number]) Assessment & Plan Assessment & Plan (1) Benign essential hypertension: Code(s): I10 - Essential (primary) hypertension Category: Medical Plan: Reinforced low sodium diet - goal is systolic BP of at least 140 to 150 mm or less Continue Lisinopril 20 mg QD and Metoprolol ER 100 mg QD (2) Pure hypercholesterolemia: Code(s): E78.00 - Pure hypercholesterolemia, unspecified Category: Medical Plan: Results of his labs done last week reviewed and discussed with patient Reinforced low cholesterol diet Continue Atorvastatin 40 mg QD Will recheck his labs and fasting lipids in 6 months for follow up (3) SVT (supraventricular tachycardia): Code(s): I47.1 - Supraventricular tachycardia Category: Medical Plan: Patient reports that his (SVT) symptoms now occur rarely since he cut back on his daily coffee intake at the recommendation of cardiology (was previously drinking up to 8 mugs of coffee a day) Work ups done, including echocardiogram, came out normal except for grade 1 diastolic dysfunction and mild LA dilatation; EF is normal Holter monitor revealed (+) frequent SVTs with baseline of sinus rhythm with average HR of 67 bpm EKG done at his cardiology follow up last year revealed (+) long QT He eventually underwent cardiac stress testing and also had a myocardial perfusion scan done back in September 2022 for further evaluation His EKG stress testing and nuclear stress testing both came back negative for ischemia Follow up with cardiology as scheduled (4) Left-sided chest pain: Code(s): R07.9 - Chest pain, unspecified Category: Medical Plan: In-office EKG done revealed (+) NSR with borderline long QT; no acute ST-T wave changes Have reassured patient about this and reminded him that his cardiac stress testing done last year were negative and advised him that his current symptoms are more likely due to musculoskeletal pain instead rather than cardiac (5) Cough: Code(s): R05.9 - Cough, unspecified Category: Medical Qualifiers: Cough type: unspecified Qualified Code(s): R05.9 - Cough, unspecified Plan: Have advised patient that his lungs sound clear on auscultation and that his physical exam today is normal with no evidence of any respiratory tract infection Advised that it is possible his recent recurrent cough is due to allergies but may also be a possible side effect of his Lisinopril Have discussed the possibility of switching his Rx to Losartan but patient asked to hold off on this for now - have advised him to call if he feels his cough is getting worse and we can try this later on (6) Impaired fasting glucose: Code(s): R73.01 - Impaired fasting glucose Category: Medical Plan: His HgbA1c was normal at 5.5% when previously checked a few months ago Reinforced low calorie diet/exercise as tolerated (7) GERD (gastroesophageal reflux disease): Code(s): K21.9 - Gastro-esophageal reflux disease without esophagitis Category: Medical Qualifiers: Esophagitis presence: without esophagitis Qualified Code(s): K21.9 - Gastro-esophageal reflux disease without esophagitis Plan: UGI series done in October 2017 showed (+) significant reflux up to the level of the upper thorax Dietary restrictions reinforced Continue Omeprazole 40 mg QD Can consider GI referral for EGD if his symptoms progress or persist despite Rx (8) Vitamin D deficiency: Code(s): E55.9 - Vitamin D deficiency, unspecified Category: Medical Plan: Continue OTC Vitamin D3 1000 units QD (9) Benign prostatic hyperplasia with urinary frequency: Code(s): N40.1 - Benign prostatic hyperplasia with lower urinary tract symptoms; R35.0 - Frequency of micturition Category: Medical Plan: Continue on Tamsulosin 0.4 mg QD Follow-up with urology as scheduled (10) History of prostate cancer: Code(s): Z85.46 - Personal history of malignant neoplasm of prostate Category: Medical Plan: S/P Tx - radiation with short-term hormones 2004 PSA level done last year came back normal / low Follow up with urology as scheduled for continuing surveillance (11) Overweight (BMI 25.0-29.9): Code(s): E66.3 - Overweight Category: Medical Plan: Reinforced diet/exercise as tolerated/lose weight Plan Follow up in 6 months Orders: Orders Lipid Panel 6 Months E78.00 - Pure hypercholesterolemia, unspecified Comprehensive [place]. Panel Fast 6 Months E78.00 - Pure hypercholesterolemia, unspecified Hemoglobin A1c 6 Months R73.01 - Impaired fasting glucose Complete Blood Count Auto Diff 6 Months D64.9 - Anemia, unspecified UA CC w/rflx Micro + Cult 6 Months R30.0 - Dysuria Vitamin D 25-OH Total 6 Months E55.9 - Vitamin D deficiency, unspecified
== END 2024-03-30 11:44 | disposition home or self-care (01) ==
PROVIDERS: PCP Internal Medicine; Visit Provider Internal Medicine
DX: I10 Essential (primary) hypertension (principal); E78.00 Pure hypercholesterolemia, unspecified; I47.10 Supraventricular tachycardia, unspecified; R07.9 Chest pain, unspecified; R05.9 Cough, unspecified; R73.01 Impaired fasting glucose; K21.9 Gastro-esophageal reflux disease without esophagitis; E55.9 Vitamin D deficiency, unspecified; N40.1 Benign prostatic hyperplasia with lower urinary tract symptoms; R35.0 Frequency of micturition; Z85.46 Personal history of malignant neoplasm of prostate; E66.3 Overweight

== ENCOUNTER → 2024-03-30 10:10 | Outpatient (BNVA) | payer BC, SELFPAY | PROVIDERS: PCP Internal Medicine; Visit Provider Internal Medicine | DX: I10 Essential (primary) hypertension (principal); E78.00 Pure hypercholesterolemia, unspecified; I47.10 Supraventricular tachycardia, unspecified; R07.9 Chest pain, unspecified; R05.9 Cough, unspecified; R73.01 Impaired fasting glucose; K21.9 Gastro-esophageal reflux disease without esophagitis; E55.9 Vitamin D deficiency, unspecified; N40.1 Benign prostatic hyperplasia with lower urinary tract symptoms; R35.0 Frequency of micturition; E66.3 Overweight; Z85.46 Personal history of malignant neoplasm of prostate; Z79.899 Other long term (current) drug therapy | CPT/HCPCS: 96127 ==

== ENCOUNTER 2024-06-05 11:37 | Outpatient (REF) | payer BC, SELFPAY ==
--- NOTE | ~2024-06-05 | XR_ITS ---
EXAMINATION: XR FINGER, LEFT CLINICAL INFORMATION: Index finger swelling COMPARISON: None available. TECHNIQUE: Three views of the left index finger. FINDINGS: Soft tissue swelling throughout the 2nd finger, most prominent proximally. No acute fracture. Volar flexion at the DIP joint may indicate extensor tendon injury. XR/XR finger LT min 2V IMPRESSION: Soft tissue swelling of the 2nd finger. No fracture. Volar flexion at the DIP joint may indicate extensor tendon injury. Electronically signed by: Devyn Ng MD 06/05/2024 05:57 PM EST
--- OUTSIDE RECORDS SUMMARY | 2024-06-05 13:23 | XMS_ITS | Continuity of Care Document ---
Author Name [facility] Organization [facility] Care Team Providers Care Director Sterile Processing Name Role Phone [facility] Unavailable Unavailable Problems Combined list of problems from Department of Defense and Veterans Affairs facilities. It does not include entries that were removed or entered in error. Problem Status Onset Date Problem Type Date of Resolution Comments Source Prostate Cancer Active 4 Condition Dec 18, 2004 Entered By: LEEANNA VAN Comment: [facility] pathology report, franklyn paez, segun 6(3+3) [facility] Essential hypertension Active 0 Condition [facility]
== END 2024-06-05 11:38 | disposition home or self-care (01) ==
LOC: HO.HMGCX 11:37
PROVIDERS: PCP Internal Medicine; Visit Provider Nurse Practitioner Family
DX: M79.89 Other specified soft tissue disorders (principal)
CPT/HCPCS: 73140

== ENCOUNTER 2024-06-05 11:37 | Outpatient (AMB) | payer BC, SELFPAY ==
--- NOTE | 2024-06-05 12:48 | MHC.OFFWIV ---
Intake Vital Signs 06/05/24 12:49 Height 5 ft 8 in Weight 187 lb BMI 28.4 BP 140/72 H Blood Pressure Location Rt brachial Position Sitting Pulse 72 Pulse Source Pulse Oximeter Temp 97.9 F Temp Source Temporal Artery Scan Pulse Oximetry (%) 97 Intake Visit Reasons: EP-lt hand index finger swollen & pain Intake Note: pt is here for left index finger knuckle swelling with pain Patient Tobacco Use Status: Never used Tobacco Allergies No Known Allergies Allergy (Verified 06/05/24 12:51) Do you need a note to return to daycare/school/sports/work: No HPI EP-lt hand index finger swollen & pain HPI Details This is a 78-year-old male patient who presents today with left index finger pain, redness, and swelling. He can not recall injuring his finger. This has been going on x1 week. He has been taking Tylenol with minor relief. [facility] Medical History Cataract (lens) fragments in eye following cataract surgery, right eye Vitamin D deficiency Overweight (BMI 25.0-29.9) History of prostate cancer Impaired fasting glucose Benign prostatic hyperplasia with urinary frequency GERD (gastroesophageal reflux disease) Pure hypercholesterolemia Benign essential hypertension Surgical History History of cataract surgery History of skin graft Family History Father Medical history unknown Mother CVD (cardiovascular disease) Social History Housing: House Are you a primary child care teacher to a significant other at home: No Do you presently have visiting nurse or other home services: No Alcohol intake: never Patient Tobacco Use Status: Never used Tobacco e-Cigarette/Vaping Use: Never Used Second Hand Smoke Exposure: Yes service: Yes Current occupational status: retired Cognitive needs: No Hearing needs: No Vision needs: Yes (reading glasses) Review of Systems Const All systems reviewed & are unremarkable except as noted in HPI and below Physical Exam Vital Signs: Last Vital Signs Temp 97.9 F 06/05/24 12:49 Pulse 72 06/05/24 12:49 BP 140/72 H 06/05/24 12:49 Pulse Ox 97 06/05/24 12:49 BMI result Body Mass Index 28.4 Const General: cooperative, healthy appearing and no acute distress Resp Effort & Inspection: normal respiratory effort Skin General skin exam: no rashes or lesions noted Extrem Left upper extremity: hand (index finger erythematous, warm to touch, patient unable to bend at MCP) Details: normal capillary refill and swelling Location: of the 2nd digit Location: at the MCP joint Psych Appearance: grossly normal Mental Status: mental status grossly normal Speech and movement: Normal speech and movement present Assessment & Plan Assessment & Plan (1) Gout: Code(s): M10.9 - Gout, unspecified Plan XR appears normal. Soft tissue swelling only. This is likely a gout flare. Discussed this with patient. I will start him on a short course of prednisone. We reviewed indications, use, possible side effects of this medication. He can utilize cold compresses for comfort as needed. Can also take Tylenol. Will return to the clinic if he does not improve with time and treatment, or if symptoms worsen/ new symptoms develop. Patient verbalizes understanding and agrees to plan. Orders: Orders XR finger LT min 2V 06/05/24 M79.89 - Other specified soft tissue disorders Medications: New prednisone Take one tablet by mouth two times a day for 5 days. 20 mg PO BID 10 tabs 0RF 5 days M10.9 - Gout, unspecified Coding Level of Care Code Est Pt Level 4 (20612) Diagnoses Gout M10.9
[2024-06-05 12:49] VITALS: BP 140/72; PULSE 72; TEMP 36.6; O2SAT 97; BMI 28.4
== END 2024-06-05 13:43 | disposition home or self-care (01) ==
PROVIDERS: PCP Internal Medicine; Visit Provider Nurse Practitioner Family
DX: M10.9 Gout, unspecified (principal)

== ENCOUNTER 2024-06-25 10:12 | Outpatient (REF) | payer BC, SELFPAY ==
--- OUTSIDE RECORDS SUMMARY | 2024-06-25 11:17 | XMS_ITS | Continuity of Care Document ---
Author Name [facility] Organization [facility] Care Team Providers Care Memorial Counselor Name Role Phone [facility] Unavailable Unavailable Problems Combined list of problems from Department of Defense and Veterans Affairs facilities. It does not include entries that were removed or entered in error. Problem Status Onset Date Problem Type Date of Resolution Comments Source Prostate Cancer Active 4 Condition Dec 18, 2004 Entered By: LEEANNA VAN Comment: [facility] pathology report, franklyn paez, esgun 6(3+3) [facility] Essential hypertension Active 0 Condition [facility]
[2024-06-25 13:21] LABS: MANUAL DIFF FLAG NO
[2024-06-25 13:24] LABS: Basophils Absolute Auto 0.1 X10*3/uL (0.0-0.2); Basophils Percent Auto 0.7 % (0-2); Eosinophils Absolute Auto 0.2 X10*3/uL (0.0-0.4); Eosinophils Percent Auto 1.8 % (0-4); Hematocrit 46.6 % (42.0-52.0); Imm Gran Abs Auto 0.13 X10*3/uL (0.00-0.03); Imm Gran Pct Auto 1.3 % (0.0-0.4); Lymphocytes Absolute Auto 2.6 X10*3/uL (1.2-4.9); Lymphocytes Percent Auto 25.5 % (20-40); Mean Corpuscular HGB Conc 32.2 g/dl (31.0-36.0); Mean Corpuscular Hemoglobin 29.4 pg (27.0-33.0); Mean Corpuscular Volume 91.4 fL (80.0-98.0); Mean Platelet Volume 10.4 fL (9.4-12.4); Monocytes Percent Auto 10.2 % (2-11); Neutrophils Absolute Auto 6.1 x10*3/uL (2.0-8.3); Neutrophils Percent Auto 60.5 % (45-73); Platelet Count 218 X10*3/uL (160-400); Red Cell Distribution Width 13.4 % (11.0-16.0); White Blood Count 10.1 X10*3/uL (4.8-10.8)
[2024-06-25 13:45] LABS: C Reactive Protein 0.68 mg/dL (< or = 0.50); Uric Acid 4.6 mg/dL (3.4-7.0)
[2024-06-25 14:01] LABS: Erythrocyte Sedimentation Rate 11 MM/HR (0-15)
== END 2024-06-25 10:13 | disposition home or self-care (01) ==
LOC: HO.HMGCLDS 10:12
PROVIDERS: PCP Internal Medicine; Visit Provider Internal Medicine
DX: M25.449 Effusion, unspecified hand (principal); M10.9 Gout, unspecified; M79.646 Pain in unspecified finger(s)
CPT/HCPCS: 36415; 84550; 85025; 85652; 86140

== ENCOUNTER 2024-08-30 12:37 | Outpatient (AMB) | payer BC, SELFPAY ==
--- NOTE | 2024-08-30 12:53 | A.OFFVIS_ITS ---
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 Allergies No Known Allergies Allergy (Verified 08/30/24 12:56) Medication List - Last Reconciled 08/30/24 by Coreen Casarez, KIRAN-C atorvastatin 40 mg PO DAILY cholecalciferol (vitamin D3) 25 mcg PO DAILY lisinopril 20 mg PO DAILY metoprolol succinate ER 100 mg PO DAILY multivitamin (Multiple Vitamins tablet) 1 tab PO DAILY omega 4-ycm-ckc-fish oil 100-160-1,000 mg (Fish Oil) 1 cap PO .once a day omeprazole 40 mg PO DAILY 90 days prednisone 20 mg PO BID 5 days tamsulosin 0.4 mg PO DAILY HPI HPI 1 yr follow up: Details: David is a 79-year-old male with past medical history of hypertension, hyperlipidemia, SVT who presents for follow up. Today he reports that he has not been feeling any heart palpitations since his last visit 09/08/2023. He has been drinking decaf coffee only and has 4-5 cups per day. He is taking his medication as directed. No chest discomfort, shortness of breath, lightheadedness, presyncope, syncope, PND, orthopnea or edema. He reports good activity tolerance. No cardiac questions or concerns. [facility] Medical History Cataract (lens) fragments in eye following cataract surgery, right eye Vitamin D deficiency Overweight (BMI 25.0-29.9) History of prostate cancer Impaired fasting glucose Benign prostatic hyperplasia with urinary frequency GERD (gastroesophageal reflux disease) Pure hypercholesterolemia Benign essential hypertension Surgical History History of cataract surgery History of skin graft Family History Father Medical history unknown Mother CVD (cardiovascular disease) Social History Housing: House Are you a primary clinical manager home care to a significant other at home: No Do you presently have visiting nurse or other home services: No Alcohol intake: never Patient Tobacco Use Status: Never used Tobacco e-Cigarette/Vaping Use: Never Used Second Hand Smoke Exposure: Yes service: Yes Current occupational status: retired Cognitive needs: No Hearing needs: No Vision needs: Yes (reading glasses) Review of Systems Const All systems reviewed & are unremarkable except as noted in HPI and below ENT Denies dizziness Card Denies chest pain, Denies chest pain at rest, Denies chest pain with activity, Denies rapid heart rate, Denies pedal edema, Denies edema, Denies leg edema, Denies lightheadedness, Denies palpitations, Denies dyspnea, Denies dyspnea on exertion and Denies orthopnea Resp Denies cough, Denies dyspnea and Denies dyspnea on exertion GI Denies hematochezia and Denies change in stool character Musc Denies abnormal gait, Denies limited range of motion, Denies muscle cramps, Leonard es muscle weakness, Denies numbness, Denies radiating pain into limb, Denies stiffness and Denies tingling Neuro Denies abnormal gait, Denies dizziness, Denies numbness and Denies tingling Endo Denies palpitations Physical Exam Vital Signs: Last Vital Signs Pulse 74 08/30/24 12:54 BP 154/62 H 08/30/24 12:54 BMI result Body Mass Index 29.1 Const General: cooperative, healthy appearing, comfortable and no acute distress Orientation/consciousness: patient oriented x3 Neck Neck: Yes normal visual inspection Resp Effort & Inspection: normal respiratory effort Auscultation: clear to auscultation bilaterally, no crackles, no rales, no rhonchi and no wheezes Cardio Jugular venous distension: no JVD Rate: regular rate Rhythm: regular rhythm Heart sounds: S1 normal heart sound present, S2 normal heart sound present, no murmurs and no rubs Neuro General: patient oriented x3 Extrem General: Yes normal to inspection Psych Appearance: grossly normal Mental Status: mental status grossly normal Speech and movement: Normal speech and movement present Office Procedures EKG Details: Today read by me, normal sinus rhythm, rate 74, QTC 455 millisecond [id number], Complete Assessment & Plan Assessment & Plan (1) Palpitations: Code(s): R00.2 - Palpitations Category: Medical Plan: ER visit October 2021 for noncardiac reason and noted to have episode of SVT which resolved with vagal maneuver. I do not see EKG tracing or rhythm strip from that visit rhythm strip confirming the diagnosis at that time. On follow-up he reported palpitations and a Holter monitor done 02/16/2022 for 1 week shows sinus rhythm with average heart rate 67, heart rate range 40 to 138, frequent SVE, 6.5% of the time, short runs of atrial tach, longest 41 beats with rates 120- 130, occasional ventricular ectopy. He was put on metoprolol for heart rate control. Echocardiogram done 02/16/2022 shows normal EF grade 1 diastolic dysfunction and mild left atrial dilatation. He does have multiple cardiac risk factors including hypertension, hyperlipidemia, impaired fasting glucose, age, sedentary. A nuclear stress test was done on 10/13/2022 showing normal myocardial perfusion imaging. Initially following his SVT diagnosis he admitted to drinking 8 mugs of caffeinated coffee per day and he has since changed to decaf and is doing much better. He currently has no concerning palpitations. EKG today shows normal sinus rhythm, rate 74. Will continue on current metoprolol dose. Instructed to continue to avoid caffeine as much as possible. Emergency medical care if Needed for any sustained rapid palpitations. Vagal maneuvers reviewed. Will arrange for cardiology follow-up in 1 yr, sooner if needed. (2) SVT (supraventricular tachycardia): Code(s): I47.1 - Supraventricular tachycardia Category: Medical Plan: As above (3) Benign essential hypertension: Code(s): I10 - Essential (primary) hypertension Category: Medical Plan: Well controlled at this time. No med changes made. Labs from 03/22/2024 showed potassium 3.9 and creatinine 0.85. Continue lisinopril and metoprolol. Plan Time spent on chart review, documentation, interview and assessment Coding Level of Care Code Est Pt Level 4 (29652) Complex EM visit Add On G2211 Diagnoses Palpitations R00.2 SVT (supraventricular tachycardia) I47.1 Benign essential hypertension I10 CPT Codes EKG - CPT: 16352-[id number], Complete ([id number]) Time Spent (min) 28
[2024-08-30 12:54] VITALS: BP 154/62; PULSE 74; BMI 29.1
--- OUTSIDE RECORDS SUMMARY | 2024-08-30 15:52 | XMS_ITS | Continuity of Care Document ---
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
== END 2024-08-30 13:15 | disposition home or self-care (01) ==
LOC: HO.HCS 12:38
PROVIDERS: PCP Internal Medicine; Visit Provider Nurse Practitioner Family
DX: R00.2 Palpitations (principal); I47.10 Supraventricular tachycardia, unspecified; I10 Essential (primary) hypertension
CPT/HCPCS: 93010; 99214

== ENCOUNTER → 2024-08-30 12:37 | Outpatient (BNVA) | payer BC, SELFPAY | PROVIDERS: PCP Internal Medicine; Visit Provider Nurse Practitioner Family | DX: I10 Essential (primary) hypertension (principal); I47.10 Supraventricular tachycardia, unspecified; E78.5 Hyperlipidemia, unspecified; R00.2 Palpitations | CPT/HCPCS: 93005 ==

== ENCOUNTER 2024-09-14 06:05 | Outpatient (REF) | payer BC, SELFPAY ==
[2024-09-14 10:16] LABS: MANUAL DIFF FLAG NO
[2024-09-14 10:23] LABS: Appearance Urine Turbid; Color Urine Dark Yellow; Glucose Urine UA Negative (Negative); Leukocyte Esterase Urine Negative (Negative); Nitrite Urine Negative (Negative); Specific Gravity - Urine 1.025 (1.005-1.025); Urine Blood Negative (Negative); Urine Ketones Negative (Negative); Urine Protein Negative (Neg-Trace)
[2024-09-14 10:25] LABS: Basophils Absolute Auto 0.1 X10*3/uL (0.0-0.2); Basophils Percent Auto 0.6 % (0-2); Eosinophils Absolute Auto 0.1 X10*3/uL (0.0-0.4); Eosinophils Percent Auto 0.6 % (0-4); Hematocrit 43.2 % (42.0-52.0); Hemoglobin 14.3 g/dl (14.0-18.0); Imm Gran Abs Auto 0.09 X10*3/uL (0.00-0.03); Imm Gran Pct Auto 0.6 % (0.0-0.4); Lymphocytes Absolute Auto 3.2 X10*3/uL (1.2-4.9); Lymphocytes Percent Auto 22.7 % (20-40); Mean Corpuscular HGB Conc 33.1 g/dl (31.0-36.0); Mean Corpuscular Hemoglobin 29.9 pg (27.0-33.0); Mean Corpuscular Volume 90.2 fL (80.0-98.0); Mean Platelet Volume 10.6 fL (9.4-12.4); Monocytes Percent Auto 6.9 % (2-11); Neutrophils Absolute Auto 9.7 x10*3/uL (2.0-8.3); Neutrophils Percent Auto 68.6 % (45-73); Platelet Count 249 X10*3/uL (160-400); Red Blood Count 4.79 X10*6/uL (4.60-5.80); Red Cell Distribution Width 13.4 % (11.0-16.0); White Blood Count 14.1 X10*3/uL (4.8-10.8)
[2024-09-14 10:39] LABS: Estimated Average Glucose 117 mg/dL; Hemoglobin A1c % 5.7 % (<6.0); Total Hemoglobin (HGBA1C) 3830.7997 umol/L
[2024-09-14 11:07] LABS: Prostate Specific Antigen < 0.10 ng/mL (<0.05-4.0)
[2024-09-14 11:17] LABS: Alanine Aminotransferase 28 U/L (0-40); Albumin Level 4.2 g/dL (3.5-5.0); Alkaline Phosphatase 85 U/L (39-117); Anion Gap 11 (12-20); Aspartate Amino Transferase 36 U/L (5-37); Bilirubin Total 0.9 mg/dL (0.0-1.0); Blood Urea Nitrogen 14 mg/dL (9-16); Calcium 9.3 mg/dL (8.4-10.2); Carbon Dioxide 23 mmol/L (22-29); Chloride 109 mmol/L (96-108); Cholesterol 142 mg/dL (<200); Estimated Glomerular Filt Rate > 60; Glucose Fasting 108 mg/dL (60-99); HDL Cholesterol 39 mg/dL (>40); LDL Cholesterol Calculated 73 mg/dL (<100); Potassium 3.9 mmol/L (3.3-5.1); Sodium 139 mmol/L (135-145); Total Protein 6.8 g/dL (6.5-8.0); Triglycerides 152 mg/dL (<150)
[2024-09-14 11:20] LABS: Vitamin D 25-OH Total 52.2 ng/mL (>30)
== END 2024-09-14 06:06 | disposition home or self-care (01) ==
LOC: HO.HMGCLDS 06:05
PROVIDERS: Urology; PCP Internal Medicine; Visit Provider Internal Medicine
DX: D64.9 Anemia, unspecified (principal); E78.00 Pure hypercholesterolemia, unspecified; R73.01 Impaired fasting glucose; R30.0 Dysuria; E55.9 Vitamin D deficiency, unspecified; C61 Malignant neoplasm of prostate; Z12.5 Encounter for screening for malignant neoplasm of prostate
CPT/HCPCS: 36415; 80053; 80061; 81003; 82306; 83036; 84153; 85025

== ENCOUNTER 2024-09-24 10:15 | Outpatient (AMB) | payer BC, SELFPAY ==
[2024-09-24 10:25] VITALS: BP 136/68; PULSE 70; O2SAT 96; BMI 28.9
--- NOTE | 2024-09-24 10:25 | A.OFFPC_ITS ---
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 Accompanied by: Self / Same As Patient Allergies No Known Allergies Allergy (Verified 09/24/24 11:29) Medication List - Last Reconciled 09/24/24 by Vlad South MD atorvastatin 40 mg PO DAILY cholecalciferol (vitamin D3) 25 mcg PO DAILY lisinopril 20 mg PO DAILY metoprolol succinate ER 100 mg PO DAILY multivitamin (Multiple Vitamins tablet) 1 tab PO DAILY omega 0-pbc-ixq-fish oil 100-160-1,000 mg (Fish Oil) 1 cap PO .once a day omeprazole 40 mg PO DAILY 90 days tamsulosin 0.4 mg PO DAILY Tobacco use date assessed: 09/24/24 Fall risk assessment: No Falls in past year Last assessed Fall Risk: 09/24/24 Dental Screening Dental Screen Date: 09/24/24 Did you have a dental visit in the last 12 months?: Yes Did you have a dental problem in the last 6 months where you did not have access to dental care?: No Was dental information given to patient?: Patient has dentist HPI 6 Months f/u HPI Details Patient comes in today for his follow up visit for his HTN, hyperlipidemia, IFG and GERD States that he feels okay He denies any headaches or dizziness Denies any chest pains, no increased SOB No nausea/vomiting, no abdominal pain No change in bowel habits noted He had his follow up labs done a couple of weeks ago - to discuss his results [facility] Medical History Cataract (lens) fragments in eye following cataract surgery, right eye Vitamin D deficiency Overweight (BMI 25.0-29.9) History of prostate cancer Impaired fasting glucose Benign prostatic hyperplasia with urinary frequency GERD (gastroesophageal reflux disease) Pure hypercholesterolemia Benign essential hypertension Surgical History History of cataract surgery History of skin graft Family History Father Medical history unknown Mother CVD (cardiovascular disease) Social History Housing: House Are you a primary direct care staffer to a significant other at home: No Do you presently have visiting nurse or other home services: No Alcohol intake: never Patient Tobacco Use Status: Never used Tobacco e-Cigarette/Vaping Use: Never Used Second Hand Smoke Exposure: Yes service: Yes Current occupational status: retired Cognitive needs: No Hearing needs: No Vision needs: Yes (reading glasses) Questionnaire PHQ-9 Over the last 2 weeks, how often have you been bothered by any of the following problems? 1. Little interest or pleasure in doing things: not at all 2. Feeling down, depressed, or hopeless: not at all 3. Trouble falling or staying asleep, or sleeping too much: not at all 4. Feeling tired or having little energy: not at all 5. Poor appetite or overeating: not at all 6. Feeling bad about yourself - or that you are a failure or have let yourself or your family down: not at all 7. Trouble concentrating on things, such as reading the newspaper or watching t elevision: not at all 8. Moving or speaking so slowly that other people could have noticed. Or the opposite - being so fidgety or restless that you have been moving around a lot more than usual: not at all 9. Thoughts that you would be better off or of hurting yourself in some way: not at all Total score: 0 Depression Screening Interpretation: Negative Depression Screening Done: Yes 65014 - PHQ-9 Billing: Yes Source: Developed by Drs. Savage Oseguera, Jennifer Ga, Jhoan Maciel and colleagues, with an educational yuliana from [employer]. Thrive Questionnaire Date Thrive assessed: 09/24/24 I am a: Patient What is your living situation today?: I have a steady place to live Within the past 12 months, did the food you bought not last and you didn't have the money to get more?: Never true Within the past 12 months, did you worry whether your food would run out before you got money to buy more?: Never true Do you have trouble paying for medicines?: No Do you have trouble getting transportation to medical appointments?: No Do you have trouble paying your heating and electricity bill?: No Do you have trouble taking care of your child, family member or friend?: No Do you have trouble with day-to-day activities such as bathing, preparing meals, shopping, managing finances, etc.?: No Are you currently unemployed and looking for a job?: No Are you interested in more education?: No Please select the resources that you would like help with: None Currently or been in a relationship where the following occur: No concerns reported THRIVE Score: 0 AUDIT C Alcohol Use Questionnaire (AUDIT-C) 1. How often do you have a drink containing alcohol?: Never 3. How often do you have six or more drinks on one occasion?: Never Total Score: 0 Score Reviewed/Action Taken: Yes CLAUDETTE-7 AMB Questionnaire CLAUDETTE-7 Date CLAUDETTE - 7 assessed: 09/24/24 Feeling nervous, anxious, or on edge: 0 = Not at all Not being able to stop or control worryin = Not at all Worrying too much about different things: 0 = Not at all Trouble relaxin = Not at all Being so restless that it is hard to sit still: 0 = Not at all Becoming easily annoyed or irritable: 0 = Not at all Feeling afraid as if something awful might happen: 0 = Not at all Total CLAUDETTE-7 score (0-4 normal; 5-9 mild; 10-14 moderate; 15-21 severe): 0 Source: Developed by Drs. Savage Oseguera, Jennifer Ga, Jhoan Maciel and colleagues, with an educational yuliana from [employer]. CLAUDETTE-7 Assessment Billing CLAUDETTE-7 Assessment Tool: CLAUDETTE-7 Assessment 44634 Review of Systems Const Denies chills, Denies fatigue, Denies fever(s) and Denies headache(s) ENT Denies dysphagia, Denies dizziness, Denies otalgia, Denies headache(s), Denies neck pain, Denies odynophagia and Denies sore throat Card Denies chest pain, Denies palpitations and Denies dyspnea Resp Denies chest congestion, Denies cough and Denies dyspnea GI Denies abdominal pain, Denies constipation, Denies dysphagia, Denies heartburn, Denies diarrhea, Denies nausea, Denies odynophagia and Denies vomiting Denies difficulty urinating, Denies dysuria, Denies nocturia and Denies urinary frequency Musc Denies back pain, Denies arthralgias and Denies neck pain Skin/Breast Denies rash Neuro Denies dizziness and Denies headache(s) Endo Denies fatigue and Denies palpitations Physical exam (Primary Care) Vital Signs: Last Vital Signs Pulse 70 09/24/24 10:25 BP 136/68 09/24/24 10:25 Pulse Ox 96 09/24/24 10:25 Oxygen Delivery Method Room Air 09/24/24 10:25 BMI result Body Mass Index 28.9 Tobacco/Smoking Status: Tobacco use Status Tobacco use date assessed 09/24/24 09/24/24 10:27 Patient Tobacco Use Status Never used Tobacco 09/24/24 10:27 e-Cigarette/Vaping Use Never Used 09/24/24 10:27 PHQ-9: PHQ-9 Score PHQ-9: Total score 0 09/24/24 11:31 Depression Screening Interpretation: Negative Thrive Assessment: Date of Thrive Assessment Date Thrive assessed 09/24/24 09/24/24 10:27 Currently or been in a relationship where the following occur: No concerns reported Const General: no acute distress and alert HENMT Ears: TM's normal bilaterally and EAC's normal Throat: Yes posterior oropharynx normal and Yes tonsils normal (no TP congestion) Neck Neck: Yes supple and No lymphadenopathy Thyroid: Thyroid normal Resp Auscultation: clear to auscultation bilaterally, no rales and no wheezes Cardio Rate: regular rate Rhythm: regular rhythm Heart sounds: no murmurs GI Palpation (GI): Soft to palpation and nontender Auscultation: normal bowel sounds General: Yes no CVA tenderness Back/Spine/Pelvis Back: no CVA tenderness Thoracic/Lumbar Spine: No lumbar spinal tenderness Skin Rashes: no rashes Extrem General: Yes no clubbing, cyanosis or edema Results Reviewed Results Reviewed: Laboratory Tests 09/14/24 06:19 WBC 14.1 H Hgb 14.3 Hct 43.2 Plt Count 249 Sodium 139 Potassium 3.9 Creatinine 0.89 Estimated GFR > 60 Fasting Glucose 108 H Hemoglobin A1c % 5.7 Calcium 9.3 D AST 36 ALT 28 Triglycerides 152 H Cholesterol 142 LDL Cholesterol, Calc 73 HDL Cholesterol 39 L Prostate Specific Ag < 0.10 25-OH Vitamin D Total 52.2 Ur Specific Gerald 1.025 Urine Protein Negative Urine Glucose (UA) Negative Urine Blood Negative Urine Nitrite Negative Ur Leukocyte Esterase Negative Coding Level of Care Code Est Pt Level 4 (51337) Complex EM visit Add On G2211 Diagnoses Benign essential hypertension I10 Pure hypercholesterolemia E78.00 SVT (supraventricular tachycardia) I47.1 Impaired fasting glucose R73.01 Gastroesophageal reflux disease without esophagitis K21.9 Esophagitis presence: without esophagitis Vitamin D deficiency E55.9 Benign prostatic hyperplasia with urinary frequency N40.1; R35.0 History of prostate cancer Z85.46 Overweight (BMI 25.0-29.9) E66.3 Additional Codes CLAUDETTE-7 Assessment Billing - CLAUDETTE-7 Assessment Tool: CLAUDETTE-7 Assessment 82019 ([id number]) PHQ-9 - 40596 - PHQ-9 Billing: Yes ([id number]) Assessment & Plan Assessment & Plan (1) Benign essential hypertension: Code(s): I10 - Essential (primary) hypertension Category: Medical Plan: Reinforced low sodium diet - goal is systolic BP of at least 140 to 150 mm or less Continue Lisinopril 20 mg QD and Metoprolol ER 100 mg QD (2) Pure hypercholesterolemia: Code(s): E78.00 - Pure hypercholesterolemia, unspecified Category: Medical Plan: Results of his labs done a couple of weeks ago reviewed and discussed with patient - have advised him that his cholesterol numbers have improved slightly from previous Reinforced low cholesterol diet Continue Atorvastatin 40 mg QD Will recheck his labs and fasting lipids in 6 months for follow up (3) SVT (supraventricular tachycardia): Code(s): I47.1 - Supraventricular tachycardia Category: Medical Plan: Patient reports that his (SVT) symptoms now occur rarely since he cut back on his daily coffee intake at the recommendation of cardiology (was previously drinking up to 8 mugs of coffee a day) Work ups done, including echocardiogram, came out normal except for grade 1 diastolic dysfunction and mild LA dilatation; EF is normal Holter monitor revealed (+) frequent SVTs with baseline of sinus rhythm with average HR of 67 bpm EKG done at his cardiology follow up last year revealed (+) long QT He eventually underwent cardiac stress testing and also had a myocardial perfusion scan done back in September 2022 for further evaluation His EKG stress testing and nuclear stress testing both came back negative for ischemia Repeat EKG done at the cardiology office last month came out normal Follow up with cardiology as scheduled (4) Impaired fasting glucose: Code(s): R73.01 - Impaired fasting glucose Category: Medical Plan: His HgbA1c remained normal at 5.7% on his recent labs; was previously at 5.5% last year Reinforced low calorie diet/exercise as tolerated (5) GERD (gastroesophageal reflux disease): Code(s): K21.9 - Gastro-esophageal reflux disease without esophagitis Category: Medical Qualifiers: Esophagitis presence: without esophagitis Qualified Code(s): K21.9 - Gastro-esophageal reflux disease without esophagitis Plan: UGI series done in October 2017 showed (+) significant reflux up to the level of the upper thorax Dietary restrictions reinforced Continue Omeprazole 40 mg QD Can consider GI referral for EGD if his symptoms progress or persist despite Rx (6) Vitamin D deficiency: Code(s): E55.9 - Vitamin D deficiency, unspecified Category: Medical Plan: Continue OTC Vitamin D3 1000 units QD (7) Benign prostatic hyperplasia with urinary frequency: Code(s): N40.1 - Benign prostatic hyperplasia with lower urinary tract symptoms; R35.0 - Frequency of micturition Category: Medical Plan: Continue on Tamsulosin 0.4 mg QD Follow-up with urology as scheduled (8) History of prostate cancer: Code(s): Z85.46 - Personal history of malignant neoplasm of prostate Category: Medical Plan: S/P Tx - radiation with short-term hormones in 2004 Repeat PSA level done a couple of weeks ago came back normal / low Follow up with urology as scheduled for continuing surveillance (9) Overweight (BMI 25.0-29.9): Code(s): E66.3 - Overweight Category: Medical Plan: Reinforced diet/exercise as tolerated/lose weight Plan Follow up in 6 months Orders: Orders Comprehensive [place]. Panel Fast 6 Months E78.00 - Pure hypercholesterolemia, unspecified Lipid Panel 6 Months E78.00 - Pure hypercholesterolemia, unspecified TSH reflex Free T4 6 Months E78.00 - Pure hypercholesterolemia, unspecified Complete Blood Count Auto Diff 6 Months D64.9 - Anemia, unspecified Hemoglobin A1c 6 Months E11.9 - Type 2 diabetes mellitus without complications UA CC w/rflx Micro + Cult 6 Months R30.0 - Dysuria Vitamin D 25-OH Total 6 Months E55.9 - Vitamin D deficiency, unspecified
== END 2024-09-24 11:38 | disposition home or self-care (01) ==
LOC: HO.HMCH 10:16
PROVIDERS: PCP Internal Medicine; Visit Provider Internal Medicine
DX: I10 Essential (primary) hypertension (principal); E78.00 Pure hypercholesterolemia, unspecified; I47.10 Supraventricular tachycardia, unspecified; R73.01 Impaired fasting glucose; K21.9 Gastro-esophageal reflux disease without esophagitis; E55.9 Vitamin D deficiency, unspecified; N40.1 Benign prostatic hyperplasia with lower urinary tract symptoms; R35.0 Frequency of micturition; Z85.46 Personal history of malignant neoplasm of prostate; E66.3 Overweight

== ENCOUNTER → 2024-09-24 10:15 | Outpatient (BNVA) | payer BC, SELFPAY | PROVIDERS: PCP Internal Medicine; Visit Provider Internal Medicine | DX: I10 Essential (primary) hypertension (principal); E78.00 Pure hypercholesterolemia, unspecified; I47.10 Supraventricular tachycardia, unspecified; R73.01 Impaired fasting glucose; K21.9 Gastro-esophageal reflux disease without esophagitis; E55.9 Vitamin D deficiency, unspecified; N40.1 Benign prostatic hyperplasia with lower urinary tract symptoms; R35.0 Frequency of micturition; E66.3 Overweight; Z68.28 Body mass index [BMI] 28.0-28.9, adult; Z85.46 Personal history of malignant neoplasm of prostate; Z79.899 Other long term (current) drug therapy | CPT/HCPCS: 96127 ==

== ENCOUNTER 2024-10-04 09:09 | Outpatient (AMB) | payer BC, SELFPAY ==
--- NOTE | 2024-10-04 09:18 | MHC.OFFVIS ---
Intake Visit Reasons: 1y/PSA/PVR Intake Note: Patient presents today for a 1Y follow up on: PSA/PVR Meds- Tamsulosin Allergies to Antibiotic- No Known Allergies Blood Thinner- None Post Void Residual: 21ml'S TODAY'S PVR:15ML'S Assembler Dc Field Ring Required: No Accompanied by: Self / Same As Patient Allergies No Known Allergies Allergy (Verified 10/04/24 09:19) HPI Comments Details: David is a very pleasant male. He is a patient of Dr. Suoth. He is seen for the following urologic conditions - prostate cancer Yearly follow-up PSA remains well-controlled Stable Wakes 2-3 times at night Refill [facility] Prostate cancer radiation therapy 2004 Prostate cancer Initial therapy radiation with short-term hormones 2004 Associated symptoms nocturia with mild urgency Managed with [facility] 09/06 0.12, 09/07 0.11, 09/08 0.1, 10/10 <0.1, 10/11 <0.1, 10/12 <0.1 Review in 12 months [facility] Medical History Cataract (lens) fragments in eye following cataract surgery, right eye Vitamin D deficiency Overweight (BMI 25.0-29.9) History of prostate cancer Impaired fasting glucose Benign prostatic hyperplasia with urinary frequency GERD (gastroesophageal reflux disease) Pure hypercholesterolemia Benign essential hypertension Surgical History History of cataract surgery History of skin graft Family History Father Medical history unknown Mother CVD (cardiovascular disease) Social History Housing: House Are you a primary animal daycare provider to a significant other at home: No Do you presently have visiting nurse or other home services: No Alcohol intake: never Patient Tobacco Use Status: Never used Tobacco e-Cigarette/Vaping Use: Never Used Second Hand Smoke Exposure: Yes service: Yes Current occupational status: retired Cognitive needs: No Hearing needs: No Vision needs: Yes (reading glasses) Review of Systems Const Denies chills and Denies fever(s) Card Reports no additional complaints and Denies syncope Resp Denies cough GI Denies abdominal pain and Denies heartburn Reports as per HPI and Denies change in libido Neuro Denies syncope Psych Denies change in libido Endo Denies change in libido Physical Exam Const General: cooperative, healthy appearing, comfortable and no acute distress Orientation/consciousness: patient oriented x3 HEENT Face and sinus: Yes normal facial exam Mouth: moist mucous membranes Neck Neck: Yes normal visual inspection, Yes full ROM and Yes trachea midline Chest Chest palpation & inspection: normal inspection of the chest Resp Effort & Inspection: normal respiratory effort, able to speak in complete sentences and no respiratory distress GI Inspection: Yes normal to inspection Back/Spine/Pelvis Cervical Spine: normal cervical lordosis Thoracic/Lumbar Spine: thoracic and lumbar spine normal to inspection Skin General skin exam: no rashes or lesions noted Neuro General: patient oriented x3, gait normal, tone normal and moves all extremities Extrem General: Yes normal to inspection and Yes capillary refill normal Office Procedures Post Void Residual Post Residual Void Post Void Residual (PVR): 15 [id number] Void Residual by ultrasound Assessment & Plan Assessment & Plan (1) Benign prostatic hyperplasia with urinary frequency: Code(s): N40.1 - Benign prostatic hyperplasia with lower urinary tract symptoms; R35.0 - Frequency of micturition Category: Medical (2) Prostate cancer: Code(s): C61 - Malignant neoplasm of prostate Category: Medical Plan Twelve month follow-up PSA Patient Instructions: This note is constructed using voice recognition software. While every effort has been made to ensure accuracy tile mason errors may have been included. Imaging studies, laboratory and physical exam results were discussed and reviewed in detail. No major barriers to patient understanding were identified. An opportunity to ask questions regarding the treatment plan was provided. All questions were answered. The patient expressed understanding and agreement with the above treatment plan. The patient is aware they should contact our office by phone for worsening of their current condition or the appearance of new urologic symptoms. Compliance is encouraged with any medications and followup testing that is ordered. It is a privilege to participate in the urologic care of your patient. If you have any questions or concerns regarding treatment for the above conditions, or other urologic issues, please do not hesitate to contact me. The office telephone contact is [phone]. Sincerely, Dr Lex Subramanian MD, [facility] - Urology Compassionate Specialist Care for the Genitourinary System Coding Level of Care Code Est Pt Level 4 (54919) Complex EM visit Add On G2211 Diagnoses Benign prostatic hyperplasia with urinary frequency N40.1; R35.0 Prostate cancer C61 CPT Codes Post Residual Void - PVR CPT Code: 55299-Uevy Void Residual by ultrasound ([id number])
--- OUTSIDE RECORDS SUMMARY | 2024-10-04 10:08 | XMS_ITS | Continuity of Care Document ---
Author Name [facility] Organization [facility] Care Team Providers Care Speech Communication Instructor Name Role Phone [facility] Unavailable Unavailable Problems Combined list of problems [...]
== END 2024-10-04 09:57 | disposition home or self-care (01) ==
LOC: HO.HUSH 09:10
PROVIDERS: PCP Internal Medicine; Visit Provider Urology
DX: N40.1 Benign prostatic hyperplasia with lower urinary tract symptoms (principal); R35.0 Frequency of micturition; C61 Malignant neoplasm of prostate
CPT/HCPCS: 99214

== ENCOUNTER → 2024-10-04 09:09 | Outpatient (BNVA) | payer BC, SELFPAY | PROVIDERS: PCP Internal Medicine; Visit Provider Urology | DX: C61 Malignant neoplasm of prostate (principal); N40.1 Benign prostatic hyperplasia with lower urinary tract symptoms; R35.0 Frequency of micturition | CPT/HCPCS: 51798 ==

== ENCOUNTER 2025-03-20 06:08 | Outpatient (REF) | payer BC, SELFPAY ==
[2025-03-20 10:03] LABS: MANUAL DIFF FLAG NO
[2025-03-20 10:08] LABS: Hematocrit 41.4 % (42.0-52.0); Hemoglobin 14.0 g/dl (14.0-18.0); Imm Gran Abs Auto 0.03 X10*3/uL (0.00-0.03); Imm Gran Pct Auto 0.3 % (0.0-0.4); Lymphocytes Absolute Auto 3.1 X10*3/uL (1.2-4.9); Mean Corpuscular HGB Conc 33.8 g/dl (31.0-36.0); Mean Corpuscular Hemoglobin 29.9 pg (27.0-33.0); Mean Corpuscular Volume 88.5 fL (80.0-98.0); NRBC Abs Auto 0.000 X10*3/uL (0.0-0.012); NRBC Pct Auto 0.0 /100WBC (0.0-0.2); Platelet Count 234 X10*3/uL (160-400); Red Blood Count 4.68 X10*6/uL (4.60-5.80); White Blood Count 9.1 X10*3/uL (4.8-10.8)
[2025-03-20 10:35] LABS: Appearance Urine Clear; Glucose Urine UA Negative (Negative); PH 6.5 (5.0-9.0); Specific Gravity - Urine 1.020 (1.005-1.025)
[2025-03-20 11:04] LABS: Alanine Aminotransferase 30 U/L (0-40); Albumin Level 4.5 g/dL (3.5-5.0); Alkaline Phosphatase 77 U/L (39-117); Anion Gap 11 (12-20); Aspartate Amino Transferase 29 U/L (5-37); Blood Urea Nitrogen 16 mg/dL (9-16); Calcium 9.4 mg/dL (8.4-10.2); Carbon Dioxide 24 mmol/L (22-29); Chloride 109 mmol/L (96-108); Cholesterol 169 mg/dL (<200); Estimated Glomerular Filt Rate > 60; HDL Cholesterol 41 mg/dL (>40); Potassium 4.0 mmol/L (3.3-5.1); Sodium 140 mmol/L (135-145); Total Protein 7.0 g/dL (6.5-8.0); Triglycerides 194 mg/dL (<150)
== END 2025-03-20 06:09 | disposition home or self-care (01) ==
LOC: HO.HMGCLDS 06:08
PROVIDERS: PCP Internal Medicine; Visit Provider Internal Medicine
DX: E11.9 Type 2 diabetes mellitus without complications (principal); D64.9 Anemia, unspecified; E55.9 Vitamin D deficiency, unspecified; E78.00 Pure hypercholesterolemia, unspecified; R30.0 Dysuria
CPT/HCPCS: 36415; 80053; 80061; 81003; 82306; 83036; 84443; 85025

== ENCOUNTER 2025-03-27 09:43 | Outpatient (AMB) | payer BC, SELFPAY ==
[2025-03-27 10:29] VITALS: BP 140/80; PULSE 90; O2SAT 97; BMI 28.6
--- NOTE | 2025-03-27 10:29 | MHC.PC.OV ---
Vital Signs 03/27/25 10:29 Height 5 ft 8 in Weight 188 lb BMI 28.6 BP 140/80 H Blood Pressure Location Lt brachial Position Sitting Pulse 90 Pulse Source Pulse Oximeter Pulse Oximetry (%) 97 Oxygen Delivery Method Room Air Intake Visit Reasons: hyperlipidemia, HTN, IFG, GERD Security Sme Required: No Accompanied by: Self / Same As Patient Allergies No Known Allergies Allergy (Verified 03/27/25 10:51) Medication List - Last Reconciled 03/27/25 by Vlad South MD atorvastatin 40 mg PO DAILY cholecalciferol (vitamin D3) 25 mcg PO DAILY lisinopril 20 mg PO DAILY metoprolol succinate ER 100 mg PO DAILY multivitamin (Multiple Vitamins tablet) 1 tab PO DAILY omega 0-dsp-dwm-fish oil 100-160-1,000 mg (Fish Oil) 1 cap PO .once a day omeprazole 40 mg PO DAILY 90 days tamsulosin 0.4 mg PO DAILY Tobacco use date assessed: 03/27/25 Fall risk assessment: No Falls in past year Last assessed Fall Risk: 03/27/25 Dental Screening Dental Screen Date: 03/27/25 Did you have a dental visit in the last 12 months?: Yes Did you have a dental problem in the last 6 months where you did not have access to dental care?: No Was dental information given to patient?: Patient has dentist HPI hyperlipidemia, HTN, IFG, GERD HPI Details Patient comes in today for his follow up visit for his HTN, hyperlipidemia and GERD States that he feels okay He denies any headaches or dizziness Denies any chest pains, no increased SOB No nausea/vomiting, no abdominal pain No change in bowel habits noted He had his follow up labs done last week - to discuss his results [facility] Medical History Cataract (lens) fragments in eye following cataract surgery, right eye Vitamin D deficiency Overweight (BMI 25.0-29.9) History of prostate cancer Impaired fasting glucose Benign prostatic hyperplasia with urinary frequency GERD (gastroesophageal reflux disease) Pure hypercholesterolemia Benign essential hypertension Surgical History History of cataract surgery History of skin graft Family History Father Medical history unknown Mother CVD (cardiovascular disease) Social History Housing: House Are you a primary health careers instructor to a significant other at home: No Do you presently have visiting nurse or other home services: No Alcohol intake: never Patient Tobacco Use Status: Never used Tobacco e-Cigarette/Vaping Use: Never Used Second Hand Smoke Exposure: Yes service: Yes Current occupational status: retired Cognitive needs: No Hearing needs: No Vision needs: Yes (reading glasses) Questionnaire PHQ-9 Over the last 2 weeks, how often have you been bothered by any of the following problems? Depression Screening Interpretation: Negative Depression Screening Done: Yes Source: Developed by Drs. Savage Oseguera, Jhoan Schultz and colleagues, with an educational yuliana from [employer]. Thrive Questionnaire Date Thrive assessed: 09/24/24 Currently or been in a relationship where the following occur: No concerns reported THRIVE Score: 0 AUDIT C Alcohol Use Questionnaire (AUDIT-C) 1. How often do you have a drink containing alcohol?: Never 3. How often do you have six or more drinks on one occasion?: Never Total Score: 0 Score Reviewed/Action Taken: Yes CLAUDETTE-7 AMB Questionnaire CLAUDETTE-7 Date CLAUDETTE - 7 assessed: 09/24/24 Source: Developed by Drs. Savage Oseguera, Jhoan Schultz and colleagues, with an educational yuliana from [employer]. Review of Systems Const Denies chills, Denies fatigue, Denies fever(s) and Denies headache(s) ENT Denies dysphagia, Denies dizziness, Denies otalgia, Denies headache(s), Denies neck pain, Denies odynophagia and Denies sore throat Card Denies chest pain, Denies palpitations and Denies dyspnea Resp Denies chest congestion, Denies cough and Denies dyspnea GI Denies abdominal pain, Denies constipation, Denies dysphagia, Denies heartburn, Denies diarrhea, Denies nausea, Denies odynophagia and Denies vomiting Denies difficulty urinating, Denies dysuria, Denies nocturia and Denies urinary frequency Musc Denies back pain, Denies arthralgias and Denies neck pain Skin/Breast Denies rash Neuro Denies dizziness and Denies headache(s) Endo Denies fatigue and Denies palpitations Physical exam (Primary Care) Vital Signs: Last Vital Signs Pulse 90 03/27/25 10:29 BP 140/80 H 03/27/25 10:29 Pulse Ox 97 03/27/25 10:29 Oxygen Delivery Method Room Air 03/27/25 10:29 BMI result Body Mass Index 28.6 Tobacco/Smoking Status: Tobacco use Status Tobacco use date assessed 03/27/25 03/27/25 10:34 Patient Tobacco Use Status Never used Tobacco 03/27/25 10:34 e-Cigarette/Vaping Use Never Used 03/27/25 10:34 Depression Screening Interpretation: Negative Thrive Assessment: Date of Thrive Assessment Date Thrive assessed 09/24/24 03/27/25 10:34 Currently or been in a relationship where the following occur: No concerns reported Const General: no acute distress and alert HENMT Ears: TM's normal bilaterally and EAC's normal Throat: Yes posterior oropharynx normal and Yes tonsils normal (no TP congestion) Neck Neck: Yes supple and No lymphadenopathy Thyroid: Thyroid normal Resp Auscultation: clear to auscultation bilaterally, no rales and no wheezes Cardio Rate: regular rate Rhythm: regular rhythm Heart sounds: no murmurs GI Palpation (GI): Soft to palpation and nontender Auscultation: normal bowel sounds General: Yes no CVA tenderness Back/Spine/Pelvis Back: no CVA tenderness Thoracic/Lumbar Spine: No lumbar spinal tenderness Skin Rashes: no rashes Extrem General: Yes no clubbing, cyanosis or edema Results Reviewed Results Reviewed: Laboratory Tests 03/20/25 06:22 WBC 9.1 Hgb 14.0 Hct 41.4 L Plt Count 234 Sodium 140 Potassium 4.0 Creatinine 0.87 Estimated GFR > 60 Fasting Glucose 110 H Hemoglobin A1c % 5.8 Calcium 9.4 AST 29 ALT 30 Triglycerides 194 H Cholesterol 169 LDL Cholesterol, Calc 90 HDL Cholesterol 41 25-OH Vitamin D Total 62.4 TSH 2.70 Ur Specific [place] 1.020 Urine Protein Negative Urine Glucose (UA) Negative Urine Blood Negative Urine Nitrite Negative Ur Leukocyte Esterase Negative Coding Level of Care Code Est Pt Level 4 (41575) Diagnoses Pure hypercholesterolemia E78.00 Benign essential hypertension I10 SVT (supraventricular tachycardia) I47.1 Impaired fasting glucose R73.01 Gastroesophageal reflux disease without esophagitis K21.9 Esophagitis presence: without esophagitis Vitamin D deficiency E55.9 Benign prostatic hyperplasia with urinary frequency N40.1; R35.0 History of prostate cancer Z85.46 Overweight (BMI 25.0-29.9) E66.3 Assessment & Plan Assessment & Plan (1) Pure hypercholesterolemia: Code(s): E78.00 - Pure hypercholesterolemia, unspecified Category: Medical Plan: Results of his labs done last week reviewed and discussed with patient Reinforced low cholesterol diet Continue Atorvastatin 40 mg QD Will recheck his labs and fasting lipids in 6 months for follow up (2) Benign essential hypertension: Code(s): I10 - Essential (primary) hypertension Category: Medical Plan: Reinforced low sodium diet - goal is systolic BP of at least 140 to 150 mm or less Continue Lisinopril 20 mg QD and Metoprolol ER 100 mg QD (3) SVT (supraventricular tachycardia): Code(s): I47.1 - Supraventricular tachycardia Category: Medical Plan: Patient reports that his (SVT) symptoms now occur rarely since he cut back on his daily coffee intake at the recommendation of cardiology (was previously drinking up to 8 mugs of coffee a day) Work ups done, including echocardiogram, came out normal except for grade 1 diastolic dysfunction and mild LA dilatation; EF is normal Holter monitor revealed (+) frequent SVTs with baseline of sinus rhythm with average HR of 67 bpm EKG done at his cardiology follow up a couple of years ago revealed (+) long QT He eventually underwent cardiac stress testing and also had a myocardial perfusion scan done back in September 2022 for further evaluation His EKG stress testing and nuclear stress testing both came back negative for ischemia Repeat EKG done at the cardiology office earlier this year came out normal Follow up with cardiology as scheduled (4) Impaired fasting glucose: Code(s): R73.01 - Impaired fasting glucose Category: Medical Plan: His HgbA1c remained normal at 5.8% on his recent labs; was previously at 5.7% earlier this year Reinforced low calorie diet/exercise as tolerated (5) GERD (gastroesophageal reflux disease): Code(s): K21.9 - Gastro-esophageal reflux disease without esophagitis Category: Medical Qualifiers: Esophagitis presence: without esophagitis Qualified Code(s): K21.9 - Gastro-esophageal reflux disease without esophagitis Plan: UGI series done in October 2017 showed (+) significant reflux up to the level of the upper thorax Dietary restrictions reinforced Continue Omeprazole 40 mg QD Can consider GI referral for EGD if his symptoms progress or persist despite Rx (6) Vitamin D deficiency: Code(s): E55.9 - Vitamin D deficiency, unspecified Category: Medical Plan: Continue OTC Vitamin D3 1000 units QD (7) Benign prostatic hyperplasia with urinary frequency: Code(s): N40.1 - Benign prostatic hyperplasia with lower urinary tract symptoms; R35.0 - Frequency of micturition Category: Medical Plan: Continue on Tamsulosin 0.4 mg QD Follow-up with urology as scheduled (8) History of prostate cancer: Code(s): Z85.46 - Personal history of malignant neoplasm of prostate Category: Medical Plan: S/P Tx - radiation with short-term hormones in 2004 Repeat PSA level done a couple of weeks ago came back normal / low Follow up with urology as scheduled for continuing surveillance (9) Overweight (BMI 25.0-29.9): Code(s): E66.3 - Overweight Category: Medical Plan: Reinforced diet/exercise as tolerated/lose weight Plan Follow up in 6 months Orders: Orders Hepatitis B,C Profile 6 Months Z23 - Encounter for immunization Comprehensive [place]. Panel Fast 6 Months E78.00 - Pure hypercholesterolemia, unspecified Vitamin D 25-OH Total 6 Months E55.9 - Vitamin D deficiency, unspecified Vitamin B12 and Folate 6 Months E53.8 - Deficiency of other specified B group vitamins Complete Blood Count Auto Diff 6 Months D64.9 - Anemia, unspecified Lipid Panel 6 Months E78.00 - Pure hypercholesterolemia, unspecified Hemoglobin A1c 6 Months R73.01 - Impaired fasting glucose
== END 2025-03-27 11:06 | disposition home or self-care (01) ==
LOC: HO.HMCH 09:44
PROVIDERS: PCP Internal Medicine; Visit Provider Internal Medicine
DX: E78.00 Pure hypercholesterolemia, unspecified (principal); I10 Essential (primary) hypertension; I47.10 Supraventricular tachycardia, unspecified; R73.01 Impaired fasting glucose; K21.9 Gastro-esophageal reflux disease without esophagitis; E55.9 Vitamin D deficiency, unspecified; N40.1 Benign prostatic hyperplasia with lower urinary tract symptoms; R35.0 Frequency of micturition; Z85.46 Personal history of malignant neoplasm of prostate; E66.3 Overweight